=== PATIENT | female | born 1965 ===

== ENCOUNTER 2020-07-17 15:38 | Outpatient (REF) | payer OTHER, SELFPAY | END 2020-07-17 15:39 | disposition home or self-care (01) | LOC: HO.LAB 15:38 | PROVIDERS: PCP Internal Medicine; Visit Provider Internal Medicine | DX: Z20.828 Contact with and (suspected) exposure to other viral communicable diseases (principal) | CPT/HCPCS: C9803; U0003 ==

== ENCOUNTER 2020-10-03 13:30 | Outpatient (REF) | payer OTHER, SELFPAY | END 2020-10-03 13:31 | disposition home or self-care (01) | LOC: HO.LAB 13:30 | PROVIDERS: PCP Internal Medicine; Visit Provider Internal Medicine | DX: Z20.822 Contact with and (suspected) exposure to COVID-19 (principal) | CPT/HCPCS: 36415; C9803; U0003; U0005 ==

== ENCOUNTER 2020-12-25 13:37 | Outpatient (REF) | payer OTHER, SELFPAY ==
[2020-12-25 16:40] LABS: MANUAL DIFF FLAG NO
[2020-12-25 16:44] LABS: Basophils Percent Auto 0.4 % (0-2); Eosinophils Absolute Auto 0.1 X10*3/uL (0.0-0.4); Hematocrit 33.3 % (37-47); Hemoglobin 10.7 g/dl (12.0-16.0); Imm Gran Abs Auto 0.01 X10*3/uL (0.00-0.03); Imm Gran Pct Auto 0.2 % (0.0-0.4); Lymphocytes Absolute Auto 1.6 X10*3/uL (1.2-4.9); Lymphocytes Percent Auto 31.8 % (20-40); Mean Corpuscular HGB Conc 32.1 g/dl (31.0-35.0); Mean Corpuscular Hemoglobin 30.1 pg (27.0-33.0); Mean Corpuscular Volume 93.5 fL (80-98); Mean Platelet Volume 10.5 fL (9.4-12.3); Monocytes Absolute Auto 0.6 X10*3/uL (0.1-1.2); Monocytes Percent Auto 11.5 % (2-11); Neutrophils Absolute Auto 2.8 X10*3/uL (2.0-8.3); Neutrophils Percent Auto 55.1 % (45-73); Platelet Count 277 X10*3/uL (160-400); Red Blood Count 3.56 X10*6/uL (4.20-5.50); Red Cell Distribution Width 13.2 % (11.0-16.0); White Blood Count 5.1 X10*3/uL (4.8-10.8)
[2020-12-25 17:36] LABS: Alanine Aminotransferase 17 U/L (0-31); Albumin Level 4.1 g/dL (3.5-5.0); Alkaline Phosphatase 71 U/L (39-117); Anion Gap 13 (12-20); Aspartate Amino Transferase 22 U/L (5-31); Bilirubin Direct < 0.2 mg/dL (0.0-0.5); Bilirubin Total 0.4 mg/dL (0.0-1.0); Blood Urea Nitrogen 10 mg/dL (9-16); Calcium 8.7 mg/dL (8.4-10.2); Carbon Dioxide 26 mmol/L (22-29); Chloride 105 mmol/L (96-108); Estimated Glomerular Filt Rate > 60; Glucose Random 81 mg/dL (60-115); Potassium 4.1 mmol/L (3.3-5.1); Sodium 140 mmol/L (135-145); Total Protein 6.9 g/dL (6.5-8.0)
[2020-12-26 11:16] LABS: LDL Cholesterol Direct 122 mg/dL (<100)
== END 2020-12-25 13:38 | disposition home or self-care (01) ==
LOC: HO.HMGCLDS 13:37
PROVIDERS: PCP Internal Medicine; Visit Provider Internal Medicine
DX: R10.13 Epigastric pain (principal); F41.1 Generalized anxiety disorder; G47.9 Sleep disorder, unspecified; I10 Essential (primary) hypertension; M19.90 Unspecified osteoarthritis, unspecified site
CPT/HCPCS: 36415; 80053; 80076; 82248; 83721; 85025

== ENCOUNTER 2021-05-01 09:53 | Outpatient (REF) | payer OTHER, SELFPAY ==
[2021-05-01 17:15] LABS: CT PCR NOT DETECTED (Not Detect.); NG PCR NOT DETECTED (Not Detect.)
[2021-05-02 11:00] LABS: BV Int Neg Control Negative (Negative); BV Int Pos Control Positive (Positive)
[2021-05-04 03:56] LABS: HPV mRNA E6/E7 rflx Not Detected (Not Detected)
== END 2021-05-01 09:54 | disposition home or self-care (01) ==
LOC: HO.LAB 09:53
PROVIDERS: PCP Internal Medicine; Visit Provider Advanced Practice Midwife
DX: Z01.411 Encounter for gynecological examination (general) (routine) with abnormal findings (principal); Z11.51 Encounter for screening for human papillomavirus (HPV); Z11.3 Encounter for screening for infections with a predominantly sexual mode of transmission; N92.4 Excessive bleeding in the premenopausal period; E66.01 Morbid (severe) obesity due to excess calories
CPT/HCPCS: 87480; 87491; 87510; 87591; 87624; 87660; 88142

== ENCOUNTER 2021-05-02 14:54 | Outpatient (REF) | payer OTHER, SELFPAY ==
--- NOTE | ~2021-05-02 | MM_ITS ---
EXAMINATION: MM SCREENING DIGITAL BREAST TOMOSYNTHESIS, BILATERAL CLINICAL INFORMATION: Screening. Asymptomatic. The lifetime risk of breast cancer based on the Tyrer-Cuzick Model is 5.1%. COMPARISON: Mammography: December 07, 2015 and studies dating back to April 06, 2012 TECHNIQUE: Digital breast tomosynthesis is performed in both the craniocaudal and mediolateral oblique views along with computer-aided detection (CAD). Synthesized 2D images are generated from the tomosynthesis. FINDINGS: There are scattered areas of fibroglandular density (ACR BI-RADS breast composition Category b). There are no significant masses, abnormal calcifications, or other abnormalities. There are again noted to be a circumscribed densities about the central and upper outer aspects of the right breast. MM/MM tomosynthesis screening BI IMPRESSION: There are no significant changes from prior study. ASSESSMENT: BI-RADS 1: Negative RECOMMENDATION: Routine annual mammography screening. This patient's information was entered into a reminder system with a target due date for their next mammogram.
== END 2021-05-02 14:55 | disposition home or self-care (01) ==
LOC: HO.MAMMO 14:54
PROVIDERS: PCP Internal Medicine; Visit Provider Internal Medicine
DX: Z12.31 Encounter for screening mammogram for malignant neoplasm of breast (principal)
CPT/HCPCS: 77063; 77067

== ENCOUNTER 2021-05-23 10:45 | Outpatient (REF) | payer OTHER, SELFPAY ==
--- NOTE | ~2021-05-23 | US_ITS ---
EXAMINATION: US PELVIC AND TRANSVAGINAL CLINICAL INFORMATION: Fibroids. COMPARISON: CT abdomen/pelvis dated 02/04/2020 and pelvic ultrasound dated 01/28/2019 TECHNIQUE: Ultrasound of the pelvis is performed using both transabdominal and transvaginal transducers along with Doppler. Transvaginal imaging is performed due to inadequate visualization transabdominally. FINDINGS: Uterus: The uterus is anteverted and measures 11.3 x 4.5 x 6.3 cm. There are nabothian cysts. The double wall endometrial thickness is 0.9 mm. The uterus is smooth in contour and has normal myometrial echogenicity. Fundal fibroid measuring 3 x 2.2 x 3 cm (previously 3.2 x 3.1 x 3.5 cm). A right uterine body fibroid measuring 1.6 x 1.3 x 1.8 cm (previously 2.1 x 1.5 x 2.6 cm). Adnexa: Both ovaries are visualized. There is normal color-flow to the adnexa. There is no ovarian torsion. There is no pelvic ascites or fluid collection. Right ovary measures 2.5 x 1.4 x 1.8 cm. Right ovarian volume of 3.3 mL. Left ovary measures 2.6 x 1.9 x 2.1 cm. Left ovarian volume of 5.4 mL. US/US pelvic and transvaginal IMPRESSION: Redemonstration of fundal and right uterine body fibroids, slightly decreased in size when compared to the prior examination. No new myometrial lesion. Unremarkable endometrium and ovaries.
== END 2021-05-23 10:46 | disposition home or self-care (01) ==
LOC: HO.US 10:45
PROVIDERS: PCP Internal Medicine; Visit Provider Advanced Practice Midwife
DX: E66.01 Morbid (severe) obesity due to excess calories (principal)
CPT/HCPCS: 76830; 76856

== ENCOUNTER 2021-06-07 10:48 | Outpatient (REF) | payer OTHER, SELFPAY ==
[2021-06-07 16:11] LABS: MANUAL DIFF FLAG NO
[2021-06-07 16:13] LABS: Basophils Percent Auto 0.2 % (0-2); Eosinophils Percent Auto 0.5 % (0-4); Hematocrit 39.3 % (37-47); Hemoglobin 12.9 g/dl (12.0-16.0); Imm Gran Abs Auto 0.02 X10*3/uL (0.00-0.03); Imm Gran Pct Auto 0.4 % (0.0-0.4); Lymphocytes Absolute Auto 1.3 X10*3/uL (1.2-4.9); Lymphocytes Percent Auto 23.5 % (20-40); Mean Corpuscular HGB Conc 32.8 g/dl (31.0-35.0); Mean Corpuscular Hemoglobin 29.9 pg (27.0-33.0); Mean Corpuscular Volume 91.2 fL (80-98); Mean Platelet Volume 10.9 fL (9.4-12.3); Monocytes Absolute Auto 0.5 X10*3/uL (0.1-1.2); Monocytes Percent Auto 9.5 % (2-11); Neutrophils Absolute Auto 3.6 X10*3/uL (2.0-8.3); Neutrophils Percent Auto 65.9 % (45-73); Platelet Count 239 X10*3/uL (160-400); Red Blood Count 4.31 X10*6/uL (4.20-5.50); Red Cell Distribution Width 14.2 % (11.0-16.0); White Blood Count 5.5 X10*3/uL (4.8-10.8)
[2021-06-07 16:25] LABS: Alanine Aminotransferase 20 U/L (0-31); Albumin Level 4.4 g/dL (3.5-5.0); Alkaline Phosphatase 84 U/L (39-117); Anion Gap 13 (12-20); Aspartate Amino Transferase 24 U/L (5-31); Bilirubin Total 0.4 mg/dL (0.0-1.0); Blood Urea Nitrogen 10 mg/dL (9-16); Calcium 9.3 mg/dL (8.4-10.2); Carbon Dioxide 27 mmol/L (22-29); Chloride 102 mmol/L (96-108); Estimated Glomerular Filt Rate > 60; Glucose Random 112 mg/dL (60-115); Potassium 4.3 mmol/L (3.3-5.1); Sodium 138 mmol/L (135-145); Total Protein 7.6 g/dL (6.5-8.0)
[2021-06-07 16:46] LABS: Ferritin 32 ng/mL (10-250)
[2021-06-07 16:50] LABS: Vitamin B12 509 pg/mL (200-900)
== END 2021-06-07 10:49 | disposition home or self-care (01) ==
LOC: HO.HMGCLDS 10:48
PROVIDERS: PCP Internal Medicine; Visit Provider Advanced Practice Midwife
DX: R10.13 Epigastric pain (principal); F41.1 Generalized anxiety disorder; G47.9 Sleep disorder, unspecified; I10 Essential (primary) hypertension; E66.01 Morbid (severe) obesity due to excess calories; D21.9 Benign neoplasm of connective and other soft tissue, unspecified
CPT/HCPCS: 36415; 80053; 82607; 82728; 85025; 99212

== ENCOUNTER 2021-07-29 14:19 | Outpatient (REF) | payer OTHER, SELFPAY ==
[2021-07-30 09:33] LABS: BV Int Neg Control Negative (Negative); BV Int Pos Control Positive (Positive)
== END 2021-07-29 14:20 | disposition home or self-care (01) ==
LOC: HO.LNP 14:19
PROVIDERS: Visit Provider Physician Assistant
DX: N76.0 Acute vaginitis (principal)
CPT/HCPCS: 87480; 87510; 87660

== ENCOUNTER 2022-03-12 12:05 | Outpatient (REF) | payer OTHER, SELFPAY ==
[2022-03-12 15:22] LABS: Alanine Aminotransferase 13 U/L (0-31); Albumin Level 4.4 g/dL (3.5-5.0); Alkaline Phosphatase 86 U/L (39-117); Anion Gap 15 (12-20); Aspartate Amino Transferase 15 U/L (5-31); Bilirubin Total 0.4 mg/dL (0.0-1.0); Blood Urea Nitrogen 15 mg/dL (9-16); Calcium 8.8 mg/dL (8.4-10.2); Carbon Dioxide 23 mmol/L (22-29); Chloride 108 mmol/L (96-108); Estimated Glomerular Filt Rate 57; Glucose Random 93 mg/dL (60-115); Potassium 4.2 mmol/L (3.3-5.1); Sodium 142 mmol/L (135-145); Total Protein 7.5 g/dL (6.5-8.0)
[2022-03-13 15:02] LABS: LDL Cholesterol Direct 160 mg/dL (<100)
== END 2022-03-12 12:06 | disposition home or self-care (01) ==
LOC: HO.HMGCLDS 12:05
PROVIDERS: PCP Internal Medicine; Visit Provider Internal Medicine
DX: Z00.01 Encounter for general adult medical examination with abnormal findings (principal); F33.9 Major depressive disorder, recurrent, unspecified; F41.1 Generalized anxiety disorder; G47.9 Sleep disorder, unspecified; I10 Essential (primary) hypertension; E66.01 Morbid (severe) obesity due to excess calories
CPT/HCPCS: 36415; 80053; 83721

== ENCOUNTER 2022-05-05 12:57 | Outpatient (REF) | payer OTHER, SELFPAY ==
--- NOTE | ~2022-05-05 | MM_ITS ---
EXAMINATION: MM SCREENING DIGITAL BREAST TOMOSYNTHESIS, BILATERAL CLINICAL INFORMATION: Screening. Asymptomatic. The lifetime risk of breast cancer based on the Tyrer-Cuzick Model is 6%. COMPARISON: Mammography: 05/02/2021, 12/07/2015 TECHNIQUE: Digital breast tomosynthesis is performed in both the craniocaudal and mediolateral oblique views along with computer-aided detection (CAD). Synthesized 2D images are generated from the tomosynthesis. FINDINGS: There are scattered areas of fibroglandular density (ACR BI-RADS breast composition Category b). There are no significant masses, abnormal calcifications, or other abnormalities. Parenchymal pattern is similar to prior studies. There is no developing density or architectural abnormality. Incidental intramammary node again seen mid to posterior upper outer right breast. The axilla and skin contours are unremarkable. No significant changes. MM/MM tomosynthesis screening BI IMPRESSION: No mammographic evidence of malignancy. ASSESSMENT: BI-RADS 2: Benign RECOMMENDATION: Routine annual mammography screening. This patient's information was entered into a reminder system with a target due date for their next mammogram.
== END 2022-05-05 12:58 | disposition home or self-care (01) ==
LOC: HO.MAMMO 12:57
PROVIDERS: PCP Internal Medicine; Visit Provider Internal Medicine
DX: Z12.31 Encounter for screening mammogram for malignant neoplasm of breast (principal)
CPT/HCPCS: 77063; 77067

== ENCOUNTER 2022-08-13 16:00 | Observation (INO) | payer OTHER, SELFPAY ==
--- NOTE | ~2022-08-13 | CT_ITS ---
EXAMINATION: CT ANGIOGRAM HEAD CT ANGIOGRAM NECK CLINICAL INFORMATION: Reason for Exam RLE weakness COMPARISON: Earlier same day noncontrast head CT TECHNIQUE: Initial noncontrast hoop punch and coiler operator imaging of the head and neck was performed. Comparison is made with noncontrast head CT from earlier today. Test bolus sequences followed by intravenous administration 70 mL of Omnipaque 350. Helical imaging was performed in the axial plane from the aortic arch to the skull vertex. Delayed postcontrast imaging of the head was also performed. The data was processed at the registered vascular technologist (rvt)'s workstation for generation of MIP sequences. Angled MIPs and volume rendered reformatted images were also generated at an offline 3D workstation. Stenoses are assessed in accordance with NASCET criteria unless otherwise indicated. DLP: 1537 mGy-cm This CT examination was performed using dose optimization techniques as appropriate, variously including the following: *Automated exposure control. *Adjustment of mA and/or kV according to patient size (this includes techniques or standardized protocols for targeted exams where dose is matched to indication/reason for exam; i.e. extremities or head). *Use of iterative reconstruction technique. FINDINGS: CT Head: There is no evidence of acute intracranial hemorrhage or edematous territorial infarction. A few foci of hypoattenuation in the periventricular and deep white matter are consistent with mild microangiopathy. Yanes-white matter differentiation is preserved. The ventricles are normal in size and configuration. No evidence for obstructive hydrocephalus. No abnormal mass effect or midline shift. No extra-axial fluid collections. No pathologic intra-axial enhancement or regional oligemia. No acute soft tissue or osseous abnormalities. Partial left ethmoid sinus opacification. CT Neck: The thyroid gland and remaining cervical soft tissues are within normal limits. Mild degenerative changes of the cervical spine and cervical straightening. Osseous proliferative changes along the anterior arch of C1 and dens process. CT Upper Chest: The visualized lung apices and upper mediastinum are within normal limits. Neck CTA: Aortic Arch: Normal contour and caliber. Classic 3 vessel branching pattern of the aortic arch. Great Vessel Origins: No significant stenosis of the branch origins. Evaluation of the proximal great vessels is somewhat limited due to streak artifact related to patient body habitus. Right Common Carotid Artery: No focal stenosis or occlusion. Cervical Right Internal Carotid Artery: Normal opacification without focal stenosis or occlusion. Proximal retropharyngeal course. Left Common Carotid Artery: No focal stenosis or occlusion. Cervical Left Internal Carotid Artery: Normal opacification without focal stenosis or occlusion. Proximal retropharyngeal course. Cervical Right Vertebral Artery: No focal stenosis or occlusion. Cervical Left Vertebral Artery: No focal stenosis or occlusion. Brain CTA: Intracranial Internal Carotid Arteries: No focal stenosis or occlusion. Right Anterior Cerebral Artery: Normal A1 segment. Normal opacification of the distal RADHA segments. Left Anterior Cerebral Artery: Normal A1 segment. Normal opacification of the distal RADHA segments. Anterior Communicating Artery: Normal. Right Middle Cerebral Artery: Normal M1 segment of the MCA without focal stenosis or occlusion. Normal arborization of the distal segments. Left Middle Cerebral Artery: Normal M1 segment of the MCA without focal stenosis or occlusion. Normal arborization of the distal segments. Right Vertebral Artery: Normal V4 segment. Left Vertebral Artery: Normal V4 segment. Basilar Artery: Normal without focal stenosis or occlusion. Normal appearance of the proximal superior cerebellar arteries. Right Posterior Cerebral Artery: Normal P1 segment. Normal opacification of the distal [employer] segments. Left Posterior Cerebral Artery: configuration Normal opacification of the distal [employer] segments. Normal opacification of the superior sagittal, straight, transverse, and sigmoid sinuses. CT/CT angio head neck IMPRESSION: No arterial high grade stenosis or large vessel occlusion in the head or neck is identified. Evaluation of the proximal arteries in the neck is limited due to artifact related to patient body habitus.
--- NOTE | ~2022-08-13 | CT_ITS ---
EXAMINATION: CT HEAD WITHOUT CONTRAST (STROKE PROTOCOL) CLINICAL INFORMATION: Stroke protocol. Right-sided weakness COMPARISON: October 23 TECHNIQUE: Contiguous axial imaging was performed from the skull base to vertex without intravenous administration of contrast. This CT examination was performed using dose optimization techniques as appropriate, variously including the following: *Automated exposure control *Adjustment of mA and/or kV according to patient size (this includes techniques or standardized protocols for targeted exams where dose is matched to indication/reason for exam; i.e. extremities or head) *Use of iterative reconstruction technique DLP: 669 mGy-cm FINDINGS: No acute intracranial hemorrhage. No significant mass effect or midline structure shift is seen. No abnormal extra-axial fluid collection is seen. The ventricles, sulci, and cisterns appear unremarkable. Yanes-white matter interface is maintained. There is a small amount of periventricular white matter low density consistent with microangiopathy. There are a few opacified left ethmoid air cells. Mastoid sinuses well aerated. No air-fluid level is seen. No destructive bony lesion. Pterygoid plates and temporomandibular joints unremarkable. CT/CT head for stroke IMPRESSION: No acute intracranial pathology. Small amount of periventricular white matter low density consistent with microangiopathy. This critical result was discussed with Erick MERCHANT at 4:50 PM hours on August 13, 2022. It was ascertained that the content and urgency of the report was understood at the time of direct communication.
--- NOTE | ~2022-08-13 | XR_ITS ---
EXAMINATION: XR CHEST CLINICAL INFORMATION: Shortness of breath COMPARISON: 02/04/2020 TECHNIQUE: Frontal view of the chest was obtained. FINDINGS: Elevated right hemidiaphragm stable. Lungs grossly clear. Heart and pulmonary vessels normal. There is postsurgical change in the right shoulder joint. XR/XR chest 1V IMPRESSION: No active disease.
--- NOTE | 2022-08-13 16:11 | ECG_ITS ---
Test Reason : WEAKNESS Blood Pressure : / mmHG Vent. Rate : 060 BPM Atrial Rate : 060 BPM P-R Int : 142 ms QRS Dur : 084 ms QT Int : 434 ms P-R-T Axes : 024 -10 027 degrees QTc Int : 434 ms Normal sinus rhythm Moderate voltage criteria for LVH, may be normal variant ( R in aVL , Jose product ) Cannot rule out Anterior infarct , age undetermined Abnormal ECG No significant changes when compared with the previous EKG of 04 february 2020 Referred By: Erick Andres Electronically Signed By:OSMAN BUNCH
--- NOTE | 2022-08-13 16:21 | ED.GENADULT ---
HPI - General Adult General Chief complaint: Headache Stated complaint: CHEST PRESSURE Time Seen by Provider: 08/13/22 16:05 Source: patient Mode of arrival: ambulatory Limitations: no limitations History of Present Illness HPI narrative: This is a 57-year-old female history of environmental allergies, obesity, anxiety, hypertension presenting to the emergency department complaints of severe occipital headache sudden in onset at 15:00, patient also reporting weakness and tells me she is having difficulty lifting her right foot. Last known well time was at 15:00. Patient also reporting some associated shortness of breath that has been present for the past few days worsening worse with exertion better at rest. Patient takes baby aspirin daily however no other blood thinners. Patient denies chest pain, fevers, chills, nausea, vomiting, abdominal pain, headache, vision changes, dizziness. NIHSS- [address] for stroke ordered at this time. Related Data Previous Rx's Medication Instructions Recorded naphazoline 0.025 %-pheniramine 1 drp ophthalmic (eye) BID-QID PRN 09/17/21 0.3 % eye drops (Naphcon-A) Itchy eyes 30 days #15 mL meclizine 25 mg tablet 25 mg PO DAILY PRN motion sickness 12/18/21 30 days #30 tabs acetaminophen 650 mg 650 mg PO Q12H PRN pain 90 days 02/03/22 tablet,extended release (Tylenol #180 tabs Arthritis Pain) rosuvastatin 20 mg tablet 20 mg PO DAILY 90 days #90 tabs 03/14/22 albuterol sulfate 90 mcg/actuation 1 inh inhalation QID PRN shortness 05/21/22 aerosol inhaler (ProAir HFA) of breath or wheezing 30 days #18 grams aspirin 81 mg tablet,delayed 81 mg PO DAILY 90 days #90 tabs 05/21/22 release levocetirizine 5 mg tablet 5 mg PO DAILY 90 days #90 tabs 05/21/22 (Allergy Relief (levocetirizine)) omeprazole 20 mg capsule,delayed 20 mg PO DAILY 90 days #90 caps 05/21/22 release sertraline 100 mg tablet 200 mg PO DAILY #180 caps 05/23/22 zolpidem 10 mg tablet 10 mg PO BEDTIME 30 days #30 tabs 05/28/22 lisinopril 20 1 tab PO DAILY 90 days #90 tabs 06/04/22 mg-hydrochlorothiazide 25 mg tablet Allergies Allergy/AdvReac Type Severity Reaction Status Date / Time tramadol Allergy Unknown upset Verified 05/28/22 11:13 stomach Motrin Allergy Unknown upset Uncoded 03/12/22 11:48 stomach Review of Systems Review of Systems: Constitutional : No Weight loss, No Fever, No Chills, No Fatigue, No Malaise ENT/Mouth : No sore throat, No Rhinorrhea Eyes: No Eye Pain, No Swelling, No Redness Cardiovascular : No Chest Pain, + SOB, No Dyspnea on Exertion, No Orthopnea, No Edema, No Palpitations Respiratory : No Cough, No Sputum, No Wheezing Gastrointestinal : No Nausea, No Vomiting, No Diarrhea, No Constipation, No abdominal Pain, No Hematochezia, No Melena Genitourinary : No Dysuria, No Urinary Frequency, No Hematuria, Musculoskeletal : No joint pain, No Myalgias, No Joint Swelling Skin : No Skin Lesions, No rash Neuro : + Weakness, No Numbness, No Dizziness, + Headache Psych : No Anxiety/Panic, No Depression All other systems reviewed and are negative Yes all other systems are reviewed and are negative [facility] Past Medical History Attestation statement: The following information was validated with the patient. Source: old records reviewed and nursing notes reviewed Medical History COVID-19 HTN (hypertension) Surgical History H/O shoulder surgery Hx of cholecystectomy Hx of tubal ligation Family History Family History Mother Diabetes Sister Diabetes HTN (hypertension) Social History Social History Housing: House Alcohol intake: never Patient Tobacco Use Status: Never used Tobacco Smoked in Last 30 Days: No e-Cigarette/Vaping Use: Never Used Use of substances other than those prescribed or required for medical reasons: No Substance Use Type: Marijuana Advance Directives: No Advance Directives Information Provided: Yes service: No Current occupational status: disabled Cognitive needs: No Hearing needs: No Vision needs: No Physical Exam ED Vital Signs: Vital Signs - 24 hr 08/13/22 16:44 08/13/22 19:15 Temperature 98.2 F 97.9 F Pulse Rate 88 53 Respiratory Rate 18 18 Blood Pressure 160/110 H 136/60 Pulse Oximetry 99 99 Oxygen Delivery Method Room Air Room Air BMI result Body Mass Index 27.1 Vital signs stable Appearance: Alert.? Oriented X3.? No acute distress.? Head: Normocephalic, atraumatic, no step-offs or deformities Eyes: Pupils equal, round and reactive to light.? CVS: Normal heart rate and rhythm.? Pulses normal.? Respiratory: No respiratory distress.? Breath sounds normal.? Abdomen: Soft and nontender.? Skin: Skin warm and dry.? Normal skin color.? Normal skin turgor.? Extremities: No lower extremity edema.? No calf ttp. 5/5 strength to left upper extremity. 4/5 strength to right upper extremity. 5/5 strength to left lower extremity. 3/5 strength to right lower extremity, patient having difficulty lifting right lower extremity off from bed. Normal sensation to bilateral lower extremities. No overlying skin changes. Neuro: Oriented X 3.? No motor deficit.? No sensory deficit. CN 2-12 intact. Normal finger to nose. Course Reevaluation(s) Reevaluation #1: Head CT negative for stroke, I did speak to Radiology. Patient reports symptoms slightly improving. Time: 16:58 Reevaluation #2: CBC with slight leukopenia, chemistry with no acute electrolyte abnormalities requiring intervention, troponin negative, BNP within normal limits. No acute findings in coags. Patient COVID negative. Continues to report head discomfort Time: 18:00 Reevaluation #3: X-ray of the chest with no active disease. Patient is still slightly uncomfortable will obtain CTA. Time: 19:30 Additional Reevaluation(s): CT with no acute findings. Patient telling me her symptoms resolving. Patient eating with family at bedside. I did discuss hospital admission, patient tells me she would like to think about it. I gave her time to think about it. Discussed case with hospitalist will admit for possible TIA. NIHSS 0 on admission. Medications Administered Discontinued Medications Generic Name Dose Route Start Last Admin Trade Name Freq PRN Reason Stop Dose Admin Iohexol 100 ml 08/13/22 21:41 08/13/22 21:41 Iohexol 350 Mg/Ml 100 Ml Infus..Btl IV 08/13/22 21:42 70 ml ONCE ONE Administration Morphine Sulfate 4 mg 08/13/22 17:58 08/13/22 18:15 Morphine Sulfate 4 Mg/Ml Cartridge IVPUSH 08/13/22 17:59 4 mg ONCE ONE Administration Protocol Ondansetron HCl 4 mg 08/13/22 17:58 08/13/22 18:15 Ondansetron Hcl 4 Mg/2 Ml Vial IVPUSH 08/13/22 17:59 4 mg ONCE ONE Administration Medical Decision Making Medical Decision Making [facility] Narrative: 1610 This is a 57-year-old female presenting with weakness particularly to the right lower extremity, started at 15:00. And some shortness of breath. Physical exam significant for No lower extremity edema.? No calf ttp. 5/5 strength to left upper extremity. 4/5 strength to right upper extremity. 5/5 strength to left lower extremity. 3/5 strength to right lower extremity, patient having difficulty lifting right lower extremity off from bed. Normal sensation to bilateral lower extremities. No overlying skin changes. Concerns for possible TIA, stroke vs. anxiety vs migrane. Plan labs, imaging. Differential Diagnosis Differential Diagnoses: The differential diagnosis associated with the presentation includes Concerns for possible TIA, stroke vs. anxiety vs migrane. Admission/Observation Consideration of admission/observation: Escalation of care including admission/observation considered Likley admit Consult Healthcare Provider Management of the patient was discussed with: Hospitalist Lab Data [facility] Lab Attestation statement: I reviewed the patient's lab results. Result Diagrams: 08/13/22 16:29 08/13/22 16:29 Labs: Lab Results 08/13/22 08/13/22 08/13/22 Range/Units 16:29 16:29 16:29 WBC 3.7 L (4.8-10.8) X10*3/uL RBC 4.16 L (4.20-5.50) X10*6/uL Hgb 12.4 (12.0-16.0) g/dl Hct 37.1 (37.0-47.0) % MCV 89.2 (80.0-98.0) fL MCH 29.8 (27.0-33.0) pg MCHC 33.4 (31.0-35.0) g/dl RDW 12.5 (11.0-16.0) % Plt Count 201 (160-400) X10*3/uL MPV 10.0 (9.4-12.3) fL Immature Gran % (Auto) 0.3 (0.0-0.4) % Neut % (Auto) 42.6 L (45-73) % Lymph % (Auto) 45.0 H (20-40) % [place] % (Auto) 11.0 (2-11) % Eos % (Auto) 0.8 (0-4) % Baso % (Auto) 0.3 (0-2) % Lymph # (Auto) 1.7 (1.2-4.9) X10*3/uL [place] # (Auto) 0.4 (0.1-1.2) X10*3/uL Eos # (Auto) 0.0 (0.0-0.4) X10*3/uL Baso # (Auto) 0.0 (0.0-0.2) X10*3/uL Abs Immat Gran (auto) 0.01 (0.00-0.03) X10*3/uL Absolute Neuts (auto) 1.6 L (2.0-8.3) x10*3/uL Absolute Nucleated RBC 0.000 (0.0-0.012) X10*3/uL Nucleated RBC % (auto) 0.0 (0.0-0.2) /100WBC PT (10.0-13.1) SEC INR (0.9-1.1) Sodium 139 (135-145) mmol/L Potassium 3.7 (3.3-5.1) mmol/L Chloride 108 (96-108) mmol/L Carbon Dioxide 24 (22-29) mmol/L Anion Gap 11 L (12-20) BUN 14 (9-16) mg/dL Creatinine 0.78 (0.5-1.4) mg/dL Estim Creat Clear Calc 84.0 Estimated GFR > 60 Random Glucose 103 (60-115) mg/dL Calcium 9.1 (8.4-10.2) mg/dL Magnesium 2.0 (1.6-2.6) mg/dL Total Bilirubin 0.3 (0.0-1.0) mg/dL AST 19 (5-31) U/L ALT 17 (0-31) U/L Alkaline Phosphatase 78 (39-117) U/L Troponin I High Sens < 3.5 (<3.5-17.0) ng/L B-Natriuretic Peptide (<100) pg/mL Total Protein 7.0 (6.5-8.0) g/dL Albumin 4.2 (3.5-5.0) g/dL Urine Color Urine Appearance Urine pH (5.0-9.0) Ur Specific [place] (1.005-1.025) Urine Protein (Neg-Trace) mg/dL Urine Glucose (UA) (Negative) mg/dL Urine Ketones (Negative) mg/dL Urine Blood (Negative) Urine Nitrite (Negative) Ur Leukocyte Esterase (Negative) COVID-19 (KATHRYN) (Negative) COVID-19 Clin Com 08/13/22 08/13/22 08/13/22 Range/Units 16:29 16:29 16:29 WBC (4.8-10.8) X10*3/uL RBC (4.20-5.50) X10*6/uL Hgb (12.0-16.0) g/dl Hct (37.0-47.0) % MCV (80.0-98.0) fL MCH (27.0-33.0) pg MCHC (31.0-35.0) g/dl RDW (11.0-16.0) % Plt Count (160-400) X10*3/uL MPV (9.4-12.3) fL Immature Gran % (Auto) (0.0-0.4) % Neut % (Auto) (45-73) % Lymph % (Auto) (20-40) % [place] % (Auto) (2-11) % Eos % (Auto) (0-4) % Baso % (Auto) (0-2) % Lymph # (Auto) (1.2-4.9) X10*3/uL [place] # (Auto) (0.1-1.2) X10*3/uL Eos # (Auto) (0.0-0.4) X10*3/uL Baso # (Auto) (0.0-0.2) X10*3/uL Abs Immat Gran (auto) (0.00-0.03) X10*3/uL Absolute Neuts (auto) (2.0-8.3) x10*3/uL Absolute Nucleated RBC (0.0-0.012) X10*3/uL Nucleated RBC % (auto) (0.0-0.2) /100WBC PT 9.9 L (10.0-13.1) SEC INR 0.9 (0.9-1.1) Sodium (135-145) mmol/L Potassium (3.3-5.1) mmol/L Chloride (96-108) mmol/L Carbon Dioxide (22-29) mmol/L Anion Gap (12-20) BUN (9-16) mg/dL Creatinine (0.5-1.4) mg/dL Estim Creat Clear Calc Estimated GFR Random Glucose (60-115) mg/dL Calcium (8.4-10.2) mg/dL Magnesium (1.6-2.6) mg/dL Total Bilirubin (0.0-1.0) mg/dL AST (5-31) U/L ALT (0-31) U/L Alkaline Phosphatase (39-117) U/L Troponin I High Sens (<3.5-17.0) ng/L B-Natriuretic Peptide 35 (<100) pg/mL Total Protein (6.5-8.0) g/dL Albumin (3.5-5.0) g/dL Urine Color Urine Appearance Urine pH (5.0-9.0) Ur Specific [place] (1.005-1.025) Urine Protein (Neg-Trace) mg/dL Urine Glucose (UA) (Negative) mg/dL Urine Ketones (Negative) mg/dL Urine Blood (Negative) Urine Nitrite (Negative) Ur Leukocyte Esterase (Negative) COVID-19 (KATHRYN) Negative (Negative) COVID-19 Clin Com See Note 08/13/22 Range/Units 18:18 WBC (4.8-10.8) X10*3/uL RBC (4.20-5.50) X10*6/uL Hgb (12.0-16.0) g/dl Hct (37.0-47.0) % MCV (80.0-98.0) fL MCH (27.0-33.0) pg MCHC (31.0-35.0) g/dl RDW (11.0-16.0) % Plt Count (160-400) X10*3/uL MPV (9.4-12.3) fL Immature Gran % (Auto) (0.0-0.4) % Neut % (Auto) (45-73) % Lymph % (Auto) (20-40) % [place] % (Auto) (2-11) % Eos % (Auto) (0-4) % Baso % (Auto) (0-2) % Lymph # (Auto) (1.2-4.9) X10*3/uL [place] # (Auto) (0.1-1.2) X10*3/uL Eos # (Auto) (0.0-0.4) X10*3/uL Baso # (Auto) (0.0-0.2) X10*3/uL Abs Immat Gran (auto) (0.00-0.03) X10*3/uL Absolute Neuts (auto) (2.0-8.3) x10*3/uL Absolute Nucleated RBC (0.0-0.012) X10*3/uL Nucleated RBC % (auto) (0.0-0.2) /100WBC PT (10.0-13.1) SEC INR (0.9-1.1) Sodium (135-145) mmol/L Potassium (3.3-5.1) mmol/L Chloride (96-108) mmol/L Carbon Dioxide (22-29) mmol/L Anion Gap (12-20) BUN (9-16) mg/dL Creatinine (0.5-1.4) mg/dL Estim Creat Clear Calc Estimated GFR Random Glucose (60-115) mg/dL Calcium (8.4-10.2) mg/dL Magnesium (1.6-2.6) mg/dL Total Bilirubin (0.0-1.0) mg/dL AST (5-31) U/L ALT (0-31) U/L Alkaline Phosphatase (39-117) U/L Troponin I High Sens (<3.5-17.0) ng/L B-Natriuretic Peptide (<100) pg/mL Total Protein (6.5-8.0) g/dL Albumin (3.5-5.0) g/dL Urine Color Yellow Urine Appearance Clear Urine pH 5.5 (5.0-9.0) Ur Specific [place] 1.015 (1.005-1.025) Urine Protein Negative (Neg-Trace) mg/dL Urine Glucose (UA) Negative (Negative) mg/dL Urine Ketones Negative (Negative) mg/dL Urine Blood Negative (Negative) Urine Nitrite Negative (Negative) Ur Leukocyte Esterase Negative (Negative) COVID-19 (KATHRYN) (Negative) COVID-19 Clin Com Independent Interpretation I performed an independent interpretation of an: Plain X-Ray and CT Scan Radiology Impression Discussion of test interpretation with radiology: I have reviewed the radiologist's reading. External Record Review External record reviewed: Inpatient record, Office record, Outpatient record, Prior outpatient labs and Prior outpatient radiology Core Measures AMI core measures followed: Yes Measure exclusions: not indicated Critical Care Time Critical Care Time Critical Care Time: No Discharge Plan Discharge Clinical Impression: Left-sided weakness, Headache Patient Disposition: Admitted As Inpatient Prescriptions: No Action acetaminophen [Tylenol Arthritis Pain] 650 mg tablet extended release 650 mg PO Q12H PRN (Reason: pain) 90 Days Qty: 180 3RF rosuvastatin 20 mg tablet 20 mg PO DAILY 90 Days Qty: 90 0RF omeprazole 20 mg capsule,delayed release(DR/EC) 20 mg PO DAILY 90 Days Qty: 90 1RF albuterol sulfate [ProAir HFA] 90 mcg/actuation HFA aerosol inhaler 1 inh inhalation QID PRN (Reason: shortness of breath or wheezing) 30 Days Qty: 18 0RF aspirin 81 mg tablet,delayed release (DR/EC) 81 mg PO DAILY 90 Days Qty: 90 3RF levocetirizine [Allergy Relief (levocetirizin)] 5 mg tablet 5 mg PO DAILY 90 Days Qty: 90 0RF sertraline 100 mg tablet 200 mg PO DAILY Qty: 180 1RF lisinopril-hydrochlorothiazide 20-25 mg tablet 1 tab PO DAILY 90 Days Qty: 90 0RF Naphcon-A 0.025-0.3 % drops 1 drp ophthalmic (eye) BID-QID PRN (Reason: Itchy eyes) 30 Days Qty: 15 0RF zolpidem 10 mg tablet 10 mg PO BEDTIME 30 Days Qty: 30 2RF meclizine 25 mg tablet 25 mg PO DAILY PRN (Reason: motion sickness) 30 Days Qty: 30 0RF
[2022-08-13 16:38] LABS: MANUAL DIFF FLAG NO
[2022-08-13 16:41] LABS: Basophils Percent Auto 0.3 % (0-2); Eosinophils Percent Auto 0.8 % (0-4); Hematocrit 37.1 % (37.0-47.0); Hemoglobin 12.4 g/dl (12.0-16.0); Imm Gran Abs Auto 0.01 X10*3/uL (0.00-0.03); Imm Gran Pct Auto 0.3 % (0.0-0.4); Lymphocytes Absolute Auto 1.7 X10*3/uL (1.2-4.9); Mean Corpuscular HGB Conc 33.4 g/dl (31.0-35.0); Mean Corpuscular Hemoglobin 29.8 pg (27.0-33.0); Mean Corpuscular Volume 89.2 fL (80.0-98.0); Monocytes Absolute Auto 0.4 X10*3/uL (0.1-1.2); Neutrophils Absolute Auto 1.6 x10*3/uL (2.0-8.3); Neutrophils Percent Auto 42.6 % (45-73); Platelet Count 201 X10*3/uL (160-400); Red Blood Count 4.16 X10*6/uL (4.20-5.50); Red Cell Distribution Width 12.5 % (11.0-16.0); White Blood Count 3.7 X10*3/uL (4.8-10.8)
[2022-08-13 16:44] VITALS: BP 160/110; PULSE 88; RESP 18; TEMP 36.8; O2SAT 99; BMI 27.1
--- NOTE | 2022-08-13 16:49 | PC.NURSE ---
57 y/o F pw sudden onset headache, has hx of aneurysm. other neuros intact for this RN. pt is aox3, calm and coopreative, ambulatory to bathroom. pt in gown, on monitor, 18G IV in place, all labs drawn and sent, covid swab sent, xray done, CTA done.
[2022-08-13 16:53] LABS: INTERNATIONAL NORM RATIO 0.9 (0.9-1.1); Prothrombin Time 9.9 SEC (10.0-13.1)
[2022-08-13 16:58] LABS: Alanine Aminotransferase 17 U/L (0-31); Albumin Level 4.2 g/dL (3.5-5.0); Alkaline Phosphatase 78 U/L (39-117); Anion Gap 11 (12-20); Aspartate Amino Transferase 19 U/L (5-31); Bilirubin Total 0.3 mg/dL (0.0-1.0); Blood Urea Nitrogen 14 mg/dL (9-16); Calcium 9.1 mg/dL (8.4-10.2); Carbon Dioxide 24 mmol/L (22-29); Chloride 108 mmol/L (96-108); Estimated Glomerular Filt Rate > 60; Glucose Random 103 mg/dL (60-115); Potassium 3.7 mmol/L (3.3-5.1); Sodium 139 mmol/L (135-145)
[2022-08-13 17:06] LABS: Troponin-I High Sensitivity < 3.5 ng/L (<3.5-17.0)
[2022-08-13 17:09] LABS: COVID-19 Test Negative (Negative); IDNOW Serial# 16C4AD1C
[2022-08-13] MEDS: ondansetron HCL 4 MG/2 ML VIAL IVPUSH (18:15)
[2022-08-13] MEDS: Morphine Sulfate 4 MG/ML CARTRIDGE IVPUSH (18:15)
--- NOTE | 2022-08-13 18:30 | PC.NURSE ---
patient medicated for pain and nausea with good effect, awaiting imaging results
[2022-08-13 18:32] LABS: Appearance Urine Clear; Color Urine Yellow; Glucose Urine UA Negative (Negative); Leukocyte Esterase Urine Negative (Negative); Nitrite Urine Negative (Negative); PH 5.5 (5.0-9.0); Specific Gravity - Urine 1.015 (1.005-1.025); Urine Blood Negative (Negative); Urine Ketones Negative (Negative); Urine Protein Negative (Neg-Trace)
[2022-08-13 19:05] LABS: B Type Natriuretic Peptide 35 pg/mL (<100)
[2022-08-13 19:15] VITALS: BP 136/60; PULSE 53; RESP 18; TEMP 36.6; O2SAT 99
[2022-08-13] MEDS: iohexoL 350 MG/ML 100 ML INFUS..BTL IV (21:41)
[2022-08-14] VITALS (7 sets, daily range): BP systolic 127–173; BP diastolic 64–89; PULSE 57–68; RESP 16–20; TEMP 36.1–36.6; O2SAT 95–98
--- NOTE | 2022-08-14 00:52 | P.HPHOSP_ITS ---
History of Present Illness Date of Service: 08/14/22 Chief Complaint: Right foot weakness This is a 57-year-old female with pertinent history of essential hypertension, generalized anxiety disorder, mixed hyperlipidemia, gastroesophageal reflux disease who presents to the emergency department for evaluation of sudden-onset right lower limb weakness. Patient states she was doing well when she had sudden onset of headache at 15:00 with difficulty lifting her right foot. It lasted till she was brought to the ER. As per ER provider, her NIHSS was 3. No difficulty of her right arm. Patient had complete resolution of her right foot weakness while in the ER and is able to lift it fine at the time of my evalu ation. No history of migraine. No facial droop. No jerking movement of extremities, tongue bite. No history of stroke. No dysarthria. Patient is on baby aspirin. In the emergency department, CT head with microangiopathy. CTA without high- grade arterial stenosis Review of Systems Constitutional: Constitutional: Reports no additional constitutional complaints Cardiovascular: Cardiovascular: Reports no additional cardiovascular compl aints Respiratory: Respiratory: Reports no additional respiratory complaints Gastrointestinal: Gastrointestinal: Reports no additional gastrointestinal complaints Genitourinary: Genitourinary: Reports no additional female genitourinary co mplaints Neurologic: Reports focal weakness Comments: Right lower extremity weakness [facility], [facility] Medical History COVID-19 HTN (hypertension) Family History Mother Diabetes Sister Diabetes HTN (hypertension) Surgical History H/O shoulder surgery Hx of cholecystectomy Hx of tubal ligation Social History Housing: House Alcohol intake: never Patient Tobacco Use Status: Never used Tobacco Smoked in Last 30 Days: No e-Cigarette/Vaping Use: Never Used Use of substances other than those prescribed or required for medical reasons: No Substance Use Type: Marijuana Advance Directives: No Advance Directives Information Provided: Yes service: No Current occupational status: disabled Cognitive needs: No Hearing needs: No Vision needs: No Meds Allergies Allergy/AdvReac Type Severity Reaction Status Date / Time tramadol Allergy Unknown upset Verified 10/19/22 11:13 stomach Motrin Allergy Unknown upset Uncoded 03/12/22 11:48 stomach Physical Exam Vital Signs and Narrative: Vital Signs: Last Vital Signs Temp 97.9 F 08/13/22 19:15 Pulse 53 08/13/22 19:15 Resp 18 08/13/22 19:15 BP 136/60 08/13/22 19:15 Pulse Ox 99 08/13/22 19:15 O2 Del Method 08/13/22 19:15 BMI result Body Mass Index 27.1 Middle-aged female lying in bed in no distress Neck supple, no JVD Regular rate and rhythm, S1-S2 heard Regular breath sounds bilaterally, no wheezing or crackles appreciated Abdomen soft nontender, no guarding, no rigidity Patient is awake, alert and oriented to self, place, time and person ; strength 5/5 in bilateral upper and lower extremity, no tongue deviation, no uvular deviation, no facial droop, no dysarthria, no nystagmus Psych: Normal mood No pedal edema Results Labs CBC and Chem 7: 08/13/22 16:29 08/13/22 16:29 Labs: Laboratory Results - last 24 hr 08/13/22 08/13/22 08/13/22 16:29 16:29 16:29 MCV 89.2 MCH 29.8 MCHC 33.4 RDW 12.5 Plt Count 201 MPV 10.0 Immature Gran % (Auto) 0.3 Neut % (Auto) 42.6 L Lymph % (Auto) 45.0 H Armstrong % (Auto) 11.0 Eos % (Auto) 0.8 Baso % (Auto) 0.3 Lymph # (Auto) 1.7 Armstrong # (Auto) 0.4 Eos # (Auto) 0.0 Baso # (Auto) 0.0 Abs Immat Gran (auto) 0.01 Absolute Neuts (auto) 1.6 L Absolute Nucleated RBC 0.000 Nucleated RBC % (auto) 0.0 PT INR Anion Gap 11 L Estim Creat Clear Calc 84.0 Estimated GFR > 60 Random Glucose 103 Calcium 9.1 Magnesium 2.0 Total Bilirubin 0.3 AST 19 ALT 17 Alkaline Phosphatase 78 Troponin I High Sens < 3.5 B-Natriuretic Peptide Total Protein 7.0 Albumin 4.2 Urine Color Urine Appearance Urine pH Ur Specific [place] Urine Protein Urine Glucose (UA) Urine Ketones Urine Blood Urine Nitrite Ur Leukocyte Esterase COVID-19 (KATHRYN) COVID-19 Clin Com 08/13/22 08/13/22 08/13/22 16:29 16:29 16:29 MCV MCH MCHC RDW Plt Count MPV Immature Gran % (Auto) Neut % (Auto) Lymph % (Auto) Armstrong % (Auto) Eos % (Auto) Baso % (Auto) Lymph # (Auto) Armstrong # (Auto) Eos # (Auto) Baso # (Auto) Abs Immat Gran (auto) Absolute Neuts (auto) Absolute Nucleated RBC Nucleated RBC % (auto) PT 9.9 L INR 0.9 Anion Gap Estim Creat Clear Calc Estimated GFR Random Glucose Calcium Magnesium Total Bilirubin AST ALT Alkaline Phosphatase Troponin I High Sens B-Natriuretic Peptide 35 Total Protein Albumin Urine Color Urine Appearance Urine pH Ur Specific [place] Urine Protein Urine Glucose (UA) Urine Ketones Urine Blood Urine Nitrite Ur Leukocyte Esterase COVID-19 (KATHRYN) Negative COVID-19 Clin Com See Note 08/13/22 18:18 MCV MCH MCHC RDW Plt Count MPV Immature Gran % (Auto) Neut % (Auto) Lymph % (Auto) Armstrong % (Auto) Eos % (Auto) Baso % (Auto) Lymph # (Auto) Armstrong # (Auto) Eos # (Auto) Baso # (Auto) Abs Immat Gran (auto) Absolute Neuts (auto) Absolute Nucleated RBC Nucleated RBC % (auto) PT INR Anion Gap Estim Creat Clear Calc Estimated GFR Random Glucose Calcium Magnesium Total Bilirubin AST ALT Alkaline Phosphatase Troponin I High Sens B-Natriuretic Peptide Total Protein Albumin Urine Color Yellow Urine Appearance Clear Urine pH 5.5 Ur Specific [place] 1.015 Urine Protein Negative Urine Glucose (UA) Negative Urine Ketones Negative Urine Blood Negative Urine Nitrite Negative Ur Leukocyte Esterase Negative COVID-19 (KATHRYN) COVID-19 Clin Com Imaging Radiologist's Impressions: Impressions Chest X-Ray 08/13/22 16:28 IMPRESSION: No active disease. Head CT 08/13/22 16:37 IMPRESSION: No acute intracranial pathology. Small amount of periventricular white matter low density consistent with microangiopathy. This critical result was discussed with Erick MERCHANT at 4:50 PM hours on August 13, 2022. It was ascertained that the content and urgency of the report was understood at the time of direct communication. Head/Neck CTA 08/13/22 21:52 IMPRESSION: No arterial high grade stenosis or large vessel occlusion in the head or neck is identified. Evaluation of the proximal arteries in the neck is limited due to artifact related to patient body habitus. Assessment and Plan (1) Weakness of right foot: Status: Acute Plan This is a 57-year-old female with pertinent history of essential hypertension, generalized anxiety disorder, mixed hyperlipidemia, gastroesophageal reflux disease who presents to the emergency department for evaluation of sudden-onset right lower limb weakness. #. Transient right lower extremity weakness #. Occipital headache Unclear etiology. Will admit with child monitor for observation. DD: TIA versus complex migraine versus other. Consulting Neurology for further assistance. Further workup based on the Neurology. Patient is on antiplatelet therapy and statin #. Essential hypertension: Continue home medication #. Generalized anxiety disorder: On sertraline Med rec pending DVT prophylaxis: Lovenox 40 mg daily Full code Cardiac diet Time Spent With Patient Time: Total time managing care of this patient today ____ minutes. Quality Stroke Does the patient have a stroke diagnosis?: No VTE Prior VTE?: No VTE Risk Level:: Medical - moderate - high VTE Device Contraindication: Treatment Not Indicated VTE Drug Contraindication: N/A - Med Ordered
--- NOTE | 2022-08-14 02:10 | PC.NURSE ---
med rec performed by this rn, Dr Morris made aware. awaiting med orders. pt and pt partner provided with storm childers at this time. pt resting comfortably on stretcher
[2022-08-14 02:27] LABS: Cholesterol 226 mg/dL; HDL Cholesterol 58 mg/dL; LDL Cholesterol Calculated 127 mg/dl; Triglycerides 205 mg/dL
[2022-08-14] MEDS: Melatonin 3 MG TABLET 6 MG PO ×2 (02:45→22:10)
[2022-08-14] MEDS: Enoxaparin Sodium 40 MG/0.4 ML SYRINGE SUBCUT ×2 (02:45→22:10)
--- NOTE | 2022-08-14 02:51 | PC.NURSE ---
pt partner at bedside. this rn offered to get recliner for pt partner. partner declined states will be going home. pt requested prn melatonin to help get some rest. pt medicated according to mar
[2022-08-14 05:28] LABS: Estimated Average Glucose 105 mg/dL; Hemoglobin A1c % 5.3 %
--- NOTE | 2022-08-14 07:05 | PHA.MEDREC ---
Pharmacy Consult ? Medication Reconciliation Pharmacy has reviewed the medication reconciliation done by tatyana
--- NOTE | 2022-08-14 07:15 | PC.NURSE ---
Patient resting comfortably no distress noted denies headache currently neuros intac, no drift or slurring of words no facial droop or deviation of tongue. Denies chest pain or respiratory distress will CTM
[2022-08-14] MEDS: 0.9 % Sodium Chloride Flush 3 ML SYRINGE IVFLUSH ×3 (07:27→22:18)
[2022-08-14 08:31] LABS: MANUAL DIFF FLAG NO
[2022-08-14 08:36] LABS: Basophils Percent Auto 0.2 % (0-2); Eosinophils Percent Auto 0.9 % (0-4); Hematocrit 37.2 % (37.0-47.0); Hemoglobin 12.3 g/dl (12.0-16.0); Imm Gran Abs Auto 0.01 X10*3/uL (0.00-0.03); Imm Gran Pct Auto 0.2 % (0.0-0.4); Lymphocytes Percent Auto 47.1 % (20-40); Mean Corpuscular HGB Conc 33.1 g/dl (31.0-35.0); Mean Corpuscular Hemoglobin 29.8 pg (27.0-33.0); Mean Corpuscular Volume 90.1 fL (80.0-98.0); Mean Platelet Volume 9.9 fL (9.4-12.3); Monocytes Absolute Auto 0.4 X10*3/uL (0.1-1.2); Monocytes Percent Auto 10.4 % (2-11); Neutrophils Absolute Auto 1.8 x10*3/uL (2.0-8.3); Neutrophils Percent Auto 41.2 % (45-73); Platelet Count 201 X10*3/uL (160-400); Red Blood Count 4.13 X10*6/uL (4.20-5.50); Red Cell Distribution Width 12.8 % (11.0-16.0); White Blood Count 4.3 X10*3/uL (4.8-10.8)
[2022-08-14 08:50] LABS: Anion Gap 12 (12-20); Blood Urea Nitrogen 14 mg/dL (9-16); Calcium 9.2 mg/dL (8.4-10.2); Carbon Dioxide 26 mmol/L (22-29); Chloride 108 mmol/L (96-108); Estimated Glomerular Filt Rate > 60; Glucose Random 122 mg/dL (60-115); Sodium 142 mmol/L (135-145)
--- NOTE | 2022-08-14 09:16 | MHC.CM.PN ---
STROUD DELIVERED PT LIVES WITH BOYFRIEND IN AN APT HOUSE. USES CANE AT BASELINE AND HAS A NEBULIZER MACHINE AT HOME BUT UNSURE OF VENDOR. HAS 4 HOURS DAILY OF RIDES SUPERVISOR ASSIST. NO HCP, DECLINES AT THIS TIME. +COVID VAX X2. [place] [facility] [place] WITH RESUMPTION OF RIDES SUPERVISOR SERVICES. FAMILY WILL TRANSPORT. CM WILL CONTINUE TO FOLLOW.
--- NOTE | 2022-08-14 09:18 | PM.NEUROCN ---
History of Present Illness Data of Consult Service Date: 08/14/22 Primary Care Provider: Kinjal Tavares MD [facility] Reason for consult: Headache 57 years old woman who came to hospital after she developed a severe headache. She said that she was at her primary care's office when she developed a headache in the back of her head on both sides which BIPIN involved her whole head and causes photophobia. She used to have headaches with this 1 was much more severe causing nausea. She came to emergency room and was noted to have a leg weakness though she did not mention any weakness in her presentation. This morning she was feeling better. I had noticed that she had an MRI of brain done few years ago. Her blood pressure numbers were mostly within normal range but she carried diagnosis of hypertension, which she was treating with medicines. Review of Systems Review of Systems: No recent cold or flu-like illness PMFSH Past Medical History Medical History COVID-19 HTN (hypertension) Family History Family History Mother Diabetes Sister Diabetes HTN (hypertension) Surgical History Surgical History H/O shoulder surgery Hx of cholecystectomy Hx of tubal ligation Social History Social History Housing: House Alcohol intake: never Patient Tobacco Use Status: Never used Tobacco Smoked in Last 30 Days: No e-Cigarette/Vaping Use: Never Used Use of substances other than those prescribed or required for medical reasons: No Substance Use Type: Marijuana Advance Directives: No Advance Directives Information Provided: Yes service: No Current occupational status: disabled Cognitive needs: No Hearing needs: No Vision needs: No Meds Allergies Allergy/AdvReac Type Severity Reaction Status Date / Time tramadol Allergy Unknown upset Verified 05/28/22 11:13 stomach Motrin Allergy Unknown upset Uncoded 03/12/22 11:48 stomach Active Medications: Current Medications Acetaminophen (Acetaminophen 325 Mg Tablet) 650 mg PO Q6H PRN PRN Reason: Pain, Mild (Pain Scale 1-3) Enoxaparin Sodium (Enoxaparin Sodium 40 Mg/0.4 Ml Syringe) 40 mg SUBCUT BEDTIME MARIELLA Last Admin: 08/14/22 02:45 Dose: 40 mg Melatonin (Melatonin 3 Mg Tablet) 6 mg PO BEDTIME PRN PRN Reason: Insomnia Last Admin: 08/14/22 02:45 Dose: 6 mg Ondansetron HCl (Ondansetron Hcl 4 Mg/2 Ml Vial) 4 mg IVPUSH Q8H PRN PRN Reason: Nausea and Vomiting Pharmacy Consult (Consult Rx Perform Med Rec) 1 each MISCELLANE ONCE PRN PRN Reason: Consult order Sodium Chloride (0.9 % Sodium Chloride Flush 3 Ml Syringe) 3 ml IVFLUSH QSHIFT MARIELLA Last Admin: 08/14/22 07:27 Dose: 3 ml Physical Exam Vital Signs: Vital Signs: Last Vital Signs Temp 97.7 F 08/14/22 08:35 Pulse 68 08/14/22 08:35 Resp 20 08/14/22 08:35 BP 132/74 08/14/22 08:35 Pulse Ox 98 08/14/22 08:35 O2 Del Method 08/14/22 08:35 BMI result Body Mass Index 27.1 Neuro: Other: She was alert and awake with normal spontaneity of speech fluency comprehension and affect. Face was symmetrical. There was no pronator drift. There was no leg weakness. Deep tendon reflexes were trace with flexor plantars for Results Labs CBC & Chem 7: 08/14/22 08:25 08/14/22 08:25 Labs: Short CBC 08/13/22 08/14/22 Range/Units 16:29 08:25 WBC 3.7 L 4.3 L (4.8-10.8) X10*3/uL Hgb 12.4 12.3 (12.0-16.0) g/dl Hct 37.1 37.2 (37.0-47.0) % Plt Count 201 201 (160-400) X10*3/uL BMP 08/13/22 08/14/22 16:29 08:25 Sodium 139 142 Potassium 3.7 4.0 Chloride 108 108 Carbon Dioxide 24 26 BUN 14 14 Creatinine 0.78 0.78 Calcium 9.1 9.2 Liver Function 08/13/22 Range/Units 16:29 Total Bilirubin 0.3 (0.0-1.0) mg/dL AST 19 (5-31) U/L ALT 17 (0-31) U/L Alkaline Phosphatase 78 (39-117) U/L Albumin 4.2 (3.5-5.0) g/dL Urine 08/13/22 Range/Units 18:18 Urine Color Yellow Urine Appearance Clear Urine pH 5.5 (5.0-9.0) Ur Specific [place] 1.015 (1.005-1.025) Urine Protein Negative (Neg-Trace) mg/dL Urine Glucose (UA) Negative (Negative) mg/dL Noncontrast head CT revealed moderately severe hypodense signal abnormalities on both sides more so on right frontal area. CTA did not reveal any significant intracranial disease. Previous MRI of brain has revealed similar pathology but more so in posterior areas and periventricular. There was also evidence of significant atrophy for her age. Assessment and Plan (1) Weakness of right foot: Status: Acute 57 years old woman who is MRI of brain few years ago reveals significant white matter disease somewhat atypical with some atrophy for her age. She had hypertension but at this time it was not out of control. She came to hospital with a headache and was noted to have foot weakness though she mostly talked about headache. At this time her examination was nonfocal and headache was resolved. Her imaging revealed significant abnormality suggestive of underlying mostly white matter disease either ischemic or demyelinating type. Because of limited risk factors and significant disease noted on her brain imaging, I recommend repeat brain MRI with and without contrast to rule out demyelinating disease. If the pattern seen on this MRI is suggestive of demyelination, a lumbar puncture is recommended to check for oligo clonal bands. In the meantime, control of vascular risk factors and p.r.n. treatment of headache is recommended Time Spent With Patient Time: Total time managing care of this patient today ____ minutes. Procedures Date of Service Date of Service: 08/14/22
[2022-08-14] MEDS: Sertraline HCL 100 MG TABLET 200 MG PO (14:56)
[2022-08-14] MEDS: lisinopriL 20 MG TABLET PO (14:56)
[2022-08-14] MEDS: hydroCHLOROthiazide 25 MG TABLET PO (17:22)
[2022-08-14] MEDS: Acetaminophen 325 MG TABLET 650 MG PO (17:28)
--- NOTE | 2022-08-14 17:33 | PM.EVENT ---
Event Note Date of Service: 08/14/22 Event Note: Admitted for headache and right lower extremity weakness all symptoms resolved patient seen by Neurology they recommended MRI brain with and without contrast to rule out demyelinating disease Patient unable to tolerate MRI due to claustrophobia Will attempt MRI tomorrow morning after giving Ativan Patient appears anxious at present will give Ativan 0.5 mg now, all home medications has been resumed. Time Spent With Patient Time: Total time managing care of this patient today ____ minutes.
[2022-08-14] MEDS: LORazepam 0.5 MG TABLET PO (17:42)
[2022-08-14] MEDS: Zolpidem Tartrate 5 MG TABLET PO (22:10)
[2022-08-15 07:39] VITALS: BP 140/71; PULSE 66; RESP 20; TEMP 36.2; O2SAT 98
[2022-08-15] MEDS: lisinopriL 20 MG TABLET PO (08:34)
[2022-08-15] MEDS: Aspirin Enteric Coated 81 MG TABLET.DR PO (08:34)
[2022-08-15] MEDS: hydroCHLOROthiazide 25 MG TABLET PO (08:34)
[2022-08-15] MEDS: Omeprazole 20 MG CAPSULE.DR PO (08:34)
[2022-08-15] MEDS: Atorvastatin Calcium 80 MG TABLET PO (08:34)
[2022-08-15] MEDS: Sertraline HCL 100 MG TABLET 200 MG PO (08:34)
[2022-08-15] MEDS: 0.9 % Sodium Chloride Flush 3 ML SYRINGE IVFLUSH (08:35)
--- NOTE | 2022-08-15 10:16 | P.DS_ITS ---
DS: Providers Provider Date of Service: 08/15/22 Date of admission: 08/14/22 00:52 Primary care physician: Kinjal Tavares MD Consults: 08/14/22 00:52 Consult to Neurology Routine Consulting Provider: [facility] Reason for consultation: ?TIA DS: Diagnosis Discharge Diagnosis (1) Weakness of right foot: Status: Acute DS: Summary Hospital Course Hospital Course: Date of Service: 08/14/22 Chief Complaint: Right foot weakness This is a 57-year-old female with pertinent history of essential hypertension, generalized anxiety disorder, mixed hyperlipidemia, gastroesophageal reflux d isease who presents to the emergency department for evaluation of sudden-onset right lower limb weakness.? Patient states she was doing well when she had sudden onset of headache at 15:00 with difficulty lifting her right foot.? It lasted till she was brought to the ER.? As per ER provider, her NIHSS was 3.? No difficulty of her right arm.? Patient had complete resolution of her right foot weakness while in the ER and is able to lift it fine at the time of my evaluation.? No history of migraine.? No facial droop.? No jerking movement of extremities, tongue bite.? No history of stroke.? No dysarthria.? Patient is on baby aspirin. In the emergency department, CT head with microangiopathy.? CTA without high- grade arterial stenosis. Hospital course 57-year-old female with pertinent history of essential hypertension, generalized anxiety disorder, mixed hyperlipidemia, gastroesophageal reflux disease who presents to the emergency department for evaluation of sudden-onset of occipital headache that became diffused and in the emergency room was noted to have right lower limb weakness all symptoms resolved, CT head showed microangiopathy, CTA head was unremarkable patient was seen by Dr. Tavares who reviewed previous MRI that showed significant white matter disease somewhat atypical with some atrophy for her H, therefore there was a concern for demyelinating disease and MRI brain with and without contrast was recommended however patient did not tolerate MRI due to claustrophobia since patient remained is stable with no neurological deficit she is being discharged home with recommendation to follow-up with neurology for possible open MRI brain, patient has been strongly recommended to follow a low-cholesterol diet continue antihypertensives and statins. For Generalized anxiety disorder recommend to continue sertraline. Time Spent with Patient Time attestation: Total time managing care of this patient today ____ minutes. Discharge coordination time: Greater than 30 minutes Quality: Safe Use of Opioids Does Pt have an Active Cancer Diagnosis on the Problem List?: No Quality: Stroke Does the patient have a stroke diagnosis?: No Physical Exam Vital Signs: Vital Signs: Last Vital Signs Temp 97.1 F 08/15/22 07:39 Pulse 66 08/15/22 07:39 Resp 20 08/15/22 07:39 BP 140/71 H 08/15/22 07:39 Pulse Ox 98 08/15/22 07:39 O2 Del Method 08/15/22 07:39 BMI result Body Mass Index 27.1 Const: Other: General patient aw johnathan alert x3 in no acute distress? Neck supple, no JV D Regular rate and rhythm, S1-S2 hea rd Regular breath sounds bilaterally , no wheezing or c rackles appreciate d Abdomen soft non tender, no guardin g, no rigidity Pat ient is awake, alvarado rt and oriented to self, place, time and person ; stre ngth 5/5 in bilate ral upper and lowe r extremity, no to ngue deviation, no uvular deviation, no facial droop, no dysarthria, no nystagmus Psych: N ormal mood No peda l edema Discharge Plan Discharge Patient Disposition: Home, Self-Care Discharge Diagnosis: Transient neurological deficit Referrals: Kinjal Tavares MD [Primary Care Provider] - 1 Week Discharge Medications: Continued acetaminophen [Tylenol Arthritis Pain] 650 mg tablet extended release 650 mg PO Q12H PRN (Reason: pain) 90 Days Qty: 180 3RF rosuvastatin 20 mg tablet 20 mg PO DAILY 90 Days Qty: 90 0RF omeprazole 20 mg capsule,delayed release(DR/EC) 20 mg PO DAILY 90 Days Qty: 90 1RF albuterol sulfate [ProAir HFA] 90 mcg/actuation HFA aerosol inhaler 1 inh inhalation QID PRN (Reason: shortness of breath or wheezing) 30 Days Qty: 18 0RF aspirin 81 mg tablet,delayed release (DR/EC) 81 mg PO DAILY 90 Days Qty: 90 3RF sertraline 100 mg tablet 200 mg PO DAILY Qty: 180 1RF lisinopril-hydrochlorothiazide 20-25 mg tablet 1 tab PO DAILY 90 Days Qty: 90 0RF Naphcon-A 0.025-0.3 % drops 1 drp ophthalmic (eye) BID-QID PRN (Reason: Itchy eyes) 30 Days Qty: 15 0RF zolpidem 10 mg tablet 10 mg PO BEDTIME 30 Days Qty: 30 2RF meclizine 25 mg tablet 25 mg PO DAILY PRN (Reason: motion sickness) 30 Days Qty: 30 0RF Discharge Orders: Discharge Order (Routine); Ordered 08/15/22 Ordered By: Brigette Velazquez Diet: Low fat, low cholesterol Activity on Discharge: As tolerated Stand Alone Forms: Patient Portal Discharge page Care Plan Goals: Transient neurological deficit resolved, MRI brain recommended however patient unable to tolerate MRI due to claustrophobia recommend outpatient follow-up with Neurology and possible open MRI as outpatient Health Concerns: Return to check with recurrent neurological symptoms of headache weakness speech impairment, continue all home medications Plan of Treatment: Outpatient follow-up with primary care physician and Neurology Dr. Tavares call for appointment Assessment: As above
== END 2022-08-15 11:31 | disposition home or self-care (01) ==
LOC: HO.ED 08-14 00:57 → HO.EDOVER 08-14 01:21 → HO.IMC 08-14 06:23
PROVIDERS: Physician Assistant; Admitting Provider Student in an Organized Health Care Education/Training Program; Emergency Provider Internal Medicine; PCP Internal Medicine; Visit Provider Hospitalist
DX: R53.1 Weakness (principal); R51.9 Headache, unspecified; I10 Essential (primary) hypertension; F41.9 Anxiety disorder, unspecified; R06.02 Shortness of breath; F12.90 Cannabis use, unspecified, uncomplicated; Z79.02 Long term (current) use of antithrombotics/antiplatelets; Z79.899 Other long term (current) drug therapy; Z20.822 Contact with and (suspected) exposure to COVID-19
CPT/HCPCS: 36415; 70450; 70496; 70498; 71045; 80048; 80053; 80061; 81003; 83036; 83735; 83880; 84484; 85025; 85610; 87635; 93005; 96372; 96374; 96375; 99222; 99285; J1650; J2270; J2405; Q9967

== ENCOUNTER 2022-08-25 13:58 | Outpatient (REF) | payer OTHER, SELFPAY ==
[2022-08-25 18:19] LABS: CT PCR NOT DETECTED (Not Detect.); NG PCR NOT DETECTED (Not Detect.)
[2022-08-26 09:44] LABS: BV Int Neg Control Negative (Negative); BV Int Pos Control Positive (Positive)
== END 2022-08-25 13:59 | disposition home or self-care (01) ==
LOC: HO.LNP 13:58
PROVIDERS: PCP Internal Medicine; Visit Provider Advanced Practice Midwife
DX: Z01.419 Encounter for gynecological examination (general) (routine) without abnormal findings (principal); D21.9 Benign neoplasm of connective and other soft tissue, unspecified; N95.1 Menopausal and female climacteric states
CPT/HCPCS: 0353U; 87480; 87510; 87660

== ENCOUNTER 2023-02-17 11:59 | Emergency (ER) | payer OTHER, SELFPAY ==
--- NOTE | ~2023-02-17 | XR_ITS ---
EXAMINATION: XR CHEST CLINICAL INFORMATION: Cough. COMPARISON: Chest radiograph dated 08/13/2022. TECHNIQUE: Frontal view of the chest was obtained. FINDINGS: Linear densities within the lingula, new when compared to the prior examination. Findings could represent atelectasis versus early infiltrates. No pleural effusion or pneumothorax. Stable cardiomediastinal silhouette. XR/XR chest 1V IMPRESSION: Linear densities within the lingula, new when compared to the prior examination. Findings could represent atelectasis versus early infiltrates.
--- NOTE | 2023-02-17 12:00 | ED_ITS ---
HPI - General Adult General Chief complaint: Upper Respiratory Symptoms Stated complaint: CP Cough Diff Breathing Time Seen by Provider: 02/17/23 13:16 Source: patient Mode of arrival: ambulatory Limitations: no limitations History of Present Illness HPI narrative: 58-year-old female with history of obesity, asthma, hypertension, depression, anxiety, environmental allergies, vertigo who presents to the ER for evaluation of shortness of breath and productive cough for the last 12-13 days. She states she has asthma and ran out of her inhalers. She states her breathing has been not good. she denies any chest pain but does have some discomfort when she coughs. today she states the had increase in sputum production. No fevers or chills. No known sick contacts. MD complaint: Productive cough and shortness of breath Onset (ago): week(s) Location: chest Radiation: non-radiation Severity: moderate Quality: aching Pain Consistency: intermittent Relieving factors: none Exacerbating factors: none Associated symptoms: cough and shortness of breath Treatments prior to arrival: none Related Data Previous Rx's Medication Instructions Recorded meclizine 25 mg tablet 25 mg PO DAILY PRN motion sickness 12/18/21 30 days #30 tabs acetaminophen 650 mg 650 mg PO Q12H PRN pain 90 days 02/03/22 tablet,extended release (Tylenol #180 tabs Arthritis Pain) rosuvastatin 20 mg tablet 20 mg PO DAILY 90 days #90 tabs 03/14/22 aspirin 81 mg tablet,delayed 81 mg PO DAILY 90 days #90 tabs 05/21/22 release albuterol sulfate 90 mcg/actuation 1 inh inhalation QID PRN shortness 10/17/22 aerosol inhaler (ProAir HFA) of breath or wheezing 30 days #18 grams levocetirizine 5 mg tablet 5 mg PO DAILY 90 days #90 tabs 10/17/22 (Allergy Relief (levocetirizine)) lisinopril 20 1 tab PO DAILY 90 days #90 tabs 10/17/22 mg-hydrochlorothiazide 25 mg tablet omeprazole 20 mg capsule,delayed 20 mg PO DAILY 90 days #90 caps 10/17/22 release sertraline 100 mg tablet 200 mg PO DAILY #180 caps 10/17/22 zolpidem 10 mg tablet 10 mg PO BEDTIME 30 days #30 tabs 11/28/22 albuterol sulfate 90 mcg/actuation 2 puff inhalation Q4-6H PRN 02/17/23 aerosol inhaler shortness of breath or wheezing #8.5 grams amoxicillin 875 mg-potassium 1 tab PO BID #14 tabs 02/17/23 clavulanate 125 mg tablet benzonatate 100 mg capsule 100 mg PO TID PRN cough #30 caps 02/17/23 prednisone 20 mg tablet 40 mg PO DAILY #10 tabs 02/17/23 Allergies Allergy/AdvReac Type Severity Reaction Status Date / Time No Known Allergies Allergy Verified 02/17/23 12:01 Review of Systems Review of Systems: Yes all other systems are reviewed and are negative [facility] Past Medical History Medical History COVID-19 HTN (hypertension) Surgical History H/O shoulder surgery Hx of cholecystectomy Hx of tubal ligation Family History Family History Mother Diabetes Sister Diabetes HTN (hypertension) Colon cancer Social History Social History Household Members: Significant Other Housing: House Do you presently have visiting nurse or other home services: Yes ([employer]) Alcohol intake: never Patient Tobacco Use Status: Never used Tobacco e-Cigarette/Vaping Use: Never Used Second Hand Smoke Exposure: No Substance Use Type: Marijuana Advance Directives: No Advance Directives Information Provided: No service: No Current occupational status: disabled Cognitive needs: No Hearing needs: No Vision needs: No Physical Exam ED Vital Signs: Vital Signs - 24 hr 02/17/23 12:02 Temperature 98 F Pulse Rate 73 Respiratory Rate 17 Blood Pressure 188/93 H Pulse Oximetry 97 Oxygen Delivery Method Room Air BMI result Body Mass Index 43.0 Appearance: Alert. Oriented X3. No acute distress. Head: normocephalic, atraumatic. Eyes: Pupils equal, round and reactive to light. ENT: Pharynx normal. No tonsillar swelling or exudate. Neck: Normal inspection. Neck supple. CVS: Normal heart rate and rhythm. Pulses normal. Respiratory: No respiratory distress. Breath sounds normal however diminished at the bases Abdomen: Obese, Soft and nontender. +BS x4 Skin: Skin warm and dry. Normal skin color. Normal skin turgor. No rashes. Extremities: No lower extremity edema. No joint swelling. No calf swelling or tenderness Neuro/psych: Oriented X 3. grossly normal, nonfocal. Normal speech and cognition. Course Course Course Narrative: This is an RME: Additional HPI, ROS, PE not included below will be deferred to primary provider. Patient is a 58 yo F with PMH of achilles tendonitits presents with 12 days of cough, congestion, and chest pain. Patient reports chest pain only occurs when coughing. Patient reports subjective fevers, fatigue, and night sweats. patient denies headache, vision changes, numbness, tingling, nausea, vomiting. Plan: viral test, x ray Medical Decision Making Medical Decision Making [facility] Narrative: 58-year-old female with history of asthma, by mental allergies, depression, anxiety, HTN, obesity who presents to the ER for evaluation of 12-13 days of cough and shortness of breath. She ran out of her asthma inhalers. No known sick contacts. On arrival to the ER she was hypertensive 180/90, no chest pain, headache or vision changes. She was afebrile and saturating 97% on room air. She was in no respiratory distress. Her lungs were clear, although diminished at the bases. Chest x-ray was performed showing a possible lingular infiltrate. EKG did not show any ischemic changes. She was negative for COVID and flu. Given her productive cough for several days and x-ray findings, will treat for community- acquired pneumonia with Augmentin, steroids, albuterol inhaler p.r.n. antitussives. Patient agrees with plan and is stable for discharge home. She will follow-up with her primary care doctor as needed. Differential Diagnosis Differential Diagnoses: The differential diagnosis associated with the presentation includes asthma exaceration, covid, flu, rsv, other viral syndrome, bronchitis, pneumonia Lab Data [facility] Lab Attestation statement: I reviewed the patient's lab results. Negative viral studies Labs: Lab Results 02/17/23 02/17/23 Range/Units 12:07 12:07 COVID-19 (KATHRYN) Negative (Negative) COVID-19 Clin Com See Note Influenza Type A (PRIETO) Negative (Negative) Influenza Type B (PRIETO) Negative (Negative) Influenza A & B Note See Note Independent Interpretation I performed an independent interpretation of an: Plain X-Ray Interpretation: cxr w/ possible infiltrate on the left, agree w/ radiology read ekg w/ normal sinus rhythm, hr 60 bpm, normal OR interval, no change from prior 11/2022. no st segment elevations or depressions Radiology Impression Discussion of test interpretation with radiology: I have reviewed the radiologist's reading. Radiologist Impression: ?XR/XR chest 1V IMPRESSION: Linear densities within the lingula, new when compared to the prior examination. Findings could represent atelectasis versus early infiltrates. External Record Review External record reviewed: Office record, Outpatient record, Prior outpatient labs and Prior outpatient radiology Tests considered The following testing was considered but not selected: basic labs considered however not indicated today given her exam and clinical presentation Prescription Management I considered prescription management with: Antibiotic and Other ( antitussive) Chronic Conditions Patient?s care impacted by: Hypertension and Other ( asthma) Critical Care Time Critical Care Time Critical Care Time: No Discharge Plan Discharge Clinical Impression: Pneumonia Patient Disposition: Home, Self-Care Instructions: Community Acquired Pneumonia (DC) Additional Instructions: Your chest x-ray today showed a possible early pneumonia. Take the prescribed antibiotic as directed. Complete the entire course and do not miss any doses. Take the prescribed prednisone, this is a steroid to help with the inflammation in your lungs. Use the inhaler every 4 hours as needed for shortness of breath. Take [id number] cold and flu medications as needed for your other symptoms. Rest and stay hydrated. Follow-up with primary care doctor. If you develop new or worsening symptoms call 911 or come back to the ER for further evaluation. Prescriptions: New amoxicillin-pot clavulanate 875-125 mg tablet 1 tab PO BID Qty: 14 0RF prednisone 20 mg tablet 40 mg PO DAILY Qty: 10 0RF albuterol sulfate 90 mcg/actuation HFA aerosol inhaler 2 puff inhalation Q4-6H PRN (Reason: shortness of breath or wheezing) Qty: 8.5 0RF benzonatate 100 mg capsule 100 mg PO TID PRN (Reason: cough) Qty: 30 0RF No Action acetaminophen [Tylenol Arthritis Pain] 650 mg tablet extended release 650 mg PO Q12H PRN (Reason: pain) 90 Days Qty: 180 3RF rosuvastatin 20 mg tablet 20 mg PO DAILY 90 Days Qty: 90 0RF aspirin 81 mg tablet,delayed release (DR/EC) 81 mg PO DAILY 90 Days Qty: 90 3RF albuterol sulfate [ProAir HFA] 90 mcg/actuation HFA aerosol inhaler 1 inh inhalation QID PRN (Reason: shortness of breath or wheezing) 30 Days Qty: 18 0RF lisinopril-hydrochlorothiazide 20-25 mg tablet 1 tab PO DAILY 90 Days Qty: 90 0RF omeprazole 20 mg capsule,delayed release(DR/EC) 20 mg PO DAILY 90 Days Qty: 90 1RF levocetirizine [Allergy Relief (levocetirizin)] 5 mg tablet 5 mg PO DAILY 90 Days Qty: 90 3RF sertraline 100 mg tablet 200 mg PO DAILY Qty: 180 1RF zolpidem 10 mg tablet 10 mg PO BEDTIME 30 Days Qty: 30 2RF meclizine 25 mg tablet 25 mg PO DAILY PRN (Reason: motion sickness) 30 Days Qty: 30 0RF Referrals: Kinjal Tavares MD [Primary Care Provider] - Discharge Date/Time: 02/17/23 13:39
--- NOTE | 2023-02-17 12:01 | ECG_ITS ---
Test Reason : cp Blood Pressure : / mmHG Vent. Rate : 060 BPM Atrial Rate : 060 BPM P-R Int : 162 ms QRS Dur : 084 ms QT Int : 420 ms P-R-T Axes : 045 -22 029 degrees QTc Int : 420 ms Normal sinus rhythm Moderate voltage criteria for LVH, may be normal variant ( R in aVL , [place] product ) Anterolateral infarct (cited on or before 13-AUG-2022) Abnormal ECG When compared with ECG of 13-AUG-2022 16:17, No significant change was found Referred By: Erick Andres Electronically Signed By:CARMELA DIXON MD
[2023-02-17 12:02] VITALS: BP 188/93; PULSE 73; RESP 17; TEMP 36.6; O2SAT 97; BMI 43.0
[2023-02-17 12:39] LABS: COVID-19 Test Negative (Negative); IDNOW Serial# 55D5AD1C; IDNOW Serial# 9DB6401D; Influenza A Negative (Negative); Influenza B2 Negative (Negative)
== END 2023-02-17 13:39 | disposition home or self-care (01) ==
PROVIDERS: Physician Assistant; Emergency Provider Emergency Medicine Emergency Medical Services; PCP Internal Medicine
DX: J18.9 Pneumonia, unspecified organism (principal); R06.02 Shortness of breath; Z20.822 Contact with and (suspected) exposure to COVID-19; I10 Essential (primary) hypertension; Z79.899 Other long term (current) drug therapy
CPT/HCPCS: 71045; 87502; 87635; 93005; 99283

== ENCOUNTER → 2023-02-17 12:01 | Outpatient (BNV) | payer OTHER, SELFPAY | PROVIDERS: Emergency Provider Emergency Medicine Emergency Medical Services; PCP Internal Medicine; Visit Provider Internal Medicine Cardiovascular Disease | DX: R94.31 Abnormal electrocardiogram [ECG] [EKG] (principal) | CPT/HCPCS: 93010 ==

== ENCOUNTER 2023-03-18 11:08 | Outpatient (AMB) | payer OTHER, SELFPAY ==
[2023-03-18 11:14] VITALS: BP 136/74; PULSE 72; O2SAT 96; BMI 43.0
--- NOTE | 2023-03-18 11:14 | A.OFFPC_ITS ---
Vital Signs 03/18/23 11:14 Height 5 ft 2 in Weight 235 lb BMI 43.0 BP 136/74 Blood Pressure Location Rt brachial Position Sitting Pulse 72 Pulse Source Pulse Oximeter Pulse Oximetry (%) 96 Oxygen Delivery Method Room Air Intake Visit Reasons: annual PE Allergies No Known Allergies Allergy (Verified 03/18/23 11:15) Tobacco use date assessed: 03/18/23 Dental Screening Dental Screen Date: 03/18/23 Did you have a dental visit in the last 12 months?: No Did you have a dental problem in the last 6 months where you did not have access to dental care?: No Was dental information given to patient?: No HPI annual PE HPI Details Patient is a 58-year-old female came in today for physical examination Colonoscopy was in 2017, it was due in 5 years, referral placed Mammogram is due April this Pap smear was August [facility] Lab order placed to be done fasting Medication wrist reviewed and refills sent Patient need to lose weight she is morbidly obese. Follow-up 3 months for medication refill [facility] Medical History COVID-19 HTN (hypertension) Surgical History H/O shoulder surgery Hx of cholecystectomy Hx of tubal ligation Family History Mother Diabetes Sister Diabetes HTN (hypertension) Colon cancer Social History Household Members: Significant Other Housing: House Do you presently have visiting nurse or other home services: Yes ([employer]) Alcohol intake: never Patient Tobacco Use Status: Never used Tobacco e-Cigarette/Vaping Use: Never Used Second Hand Smoke Exposure: No Substance Use Type: Marijuana service: No Current occupational status: disabled Cognitive needs: No Hearing needs: No Vision needs: No Female Reproductive History Menstrual Age of Menarche: 14 Questionnaire PHQ-9 Over the last 2 weeks, how often have you been bothered by any of the following problems? 95082 - PHQ-9 Billing: Patient declined-do not bill Source: Developed by Drs. Agustin Lucas, Katie Brennan, Christopher Cee and colleagues, with an educational jean pierre from [employer]. Thrive Questionnaire Date Thrive assessed: 03/18/23 What is your living situation today?: I choose not to answer this question Within the past 12 months, did the food you bought not last and you didn't have the money to get more?: I choose not to answer this question Within the past 12 months, did you worry whether your food would run out before you got money to buy more?: I choose not to answer this question Do you have trouble paying for medicines?: I choose not to answer this question Do you have trouble getting transportation to medical appointments?: I choose not to answer this question Do you have trouble paying your heating and electricity bill?: I choose not to answer this question Do you have trouble taking care of your child, family member or friend?: I choose not to answer this question Do you have trouble with day-to-day activities such as bathing, preparing meals, shopping, managing finances, etc.?: I choose not to answer this question Are you currently unemployed and looking for a job?: I choose not to answer this question Are you interested in more education?: I choose not to answer this question AUDIT C Alcohol Use Questionnaire (AUDIT-C) 1. How often do you have a drink containing alcohol?: Never 3. How often do you have six or more drinks on one occasion?: Never Total Score: 0 Score Reviewed/Action Taken: Yes MANUELA-7 AMB Questionnaire MANUELA-7 Date MANUELA - 7 assessed: 03/18/23 Source: Developed by Drs. Agustin Lucas, Katie Brennan, Christopher Cee and colleagues, with an educational jean pierre from [employer]. MANUELA-7 Assessment Billing MANUELA-7 Assessment Tool: pt declined-do not bill Review of Systems Const Denies chills, Denies fever(s) and Denies headache(s) Eyes Denies blurry vision ENT Denies headache(s), Denies nasal discharge, Denies nasal obstruction, Denies odynophagia and Denies sinus pain Card Denies chest pain at rest and Denies chest pain with activity Resp Denies cough and Denies hemoptysis GI Denies diarrhea, Denies odynophagia, Denies vomiting and Denies hematemesis Reports as per HPI Musc Denies abnormal gait Skin/Breast Reports as per HPI Neuro Denies Neuro-related abnormal movements, Denies Abnormal speech present, Denies abnormal gait, Denies headache(s) and Denies Sensory deficit (Neuro) Psych Denies mood swings and Denies paranoia Endo Reports as per HPI Abisai/Lymph Reports as per HPI Aller/Immun Reports as per HPI Physical exam (Primary Care) Vital Signs: Last Vital Signs Pulse 72 03/18/23 11:14 BP 136/74 03/18/23 11:14 Pulse Ox 96 03/18/23 11:14 Oxygen Delivery Method Room Air 03/18/23 11:14 BMI result Body Mass Index 43.0 Tobacco/Smoking Status: Tobacco use Status Tobacco use date assessed 03/18/23 03/18/23 11:16 Patient Tobacco Use Status Never used Tobacco 03/18/23 11:16 Tobacco use type 05/30/22 13:54 e-Cigarette/Vaping Use Never Used 03/18/23 11:16 Thrive Assessment: Date of Thrive Assessment Date Thrive assessed 03/18/23 03/18/23 11:35 Const General: cooperative, comfortable and no acute distress Orientation/consciousness: patient oriented x3 HENMT Head: Yes normocephalic and Yes atraumatic Eyes General: appearance normal, both eyes and all related structures Pupils: Equal, round and reactive pupils present EOM: EOMs intact bilaterally Neck Neck: Yes supple and No lymphadenopathy Thyroid: Thyroid normal Lymphatic: no lymphadenopathy noted Resp Effort & Inspection: normal respiratory effort and able to speak in complete sentences Auscultation: clear to auscultation bilaterally Cardio Heart sounds: S1 normal heart sound present and S2 normal heart sound present GI Palpation (GI): Soft to palpation and nontender Auscultation: normal bowel sounds General: Yes no CVA tenderness Back/Spine/Pelvis Back: no CVA tenderness Skin General skin exam: elasticity normal and turgor normal Neuro General: patient oriented x3 and gait normal Cranial nerves: Yes Equal, round and reactive pupils present Speech: No Abnormal speech present Sensory Exam: No Sensory deficit (Neuro) Coordination: tandem gait normal and Romberg test negative Extrem Other: Limited range of motion both shoulders patient unable to lift arms above head, chronic General: No edema Assessment and Plan Assessment & Plan (1) Encounter for general adult medical examination with abnormal findings: Code(s): Z00.01 - Encounter for general adult medical examination with abnormal findings (2) Morbid obesity due to excess calories: Code(s): E66.01 - Morbid (severe) obesity due to excess calories (3) Major depression, recurrent: Code(s): F33.9 - Major depressive disorder, recurrent, unspecified (4) Anxiety, generalized: Code(s): F41.1 - Generalized anxiety disorder (5) Hypertension, essential: Code(s): I10 - Essential (primary) hypertension (6) Difficulty sleeping: Code(s): G47.9 - Sleep disorder, unspecified (7) Colon cancer screening: Code(s): Z12.11 - Encounter for screening for malignant neoplasm of colon Plan Patient is a 58-year-old female came in today for physical examination Colonoscopy was in 2018, it was due in 5 years, referral placed Mammogram is due April of this year Pap smear was August of this year [facility] Lab order placed to be done fasting Medication wrist reviewed and refills sent Patient need to lose weight she is morbidly obese. Follow-up 3 months for medication refill Orders: Orders Comprehensive [place]. Panel Fast Today E66.01 - Morbid (severe) obesity due to e xcess calories, F33.9 - Major depressive disorder, recurrent, unspecified, F41.1 - Generalized anxiety disorder, G47.9 - Sleep disorder, unspecified, I10 - Essential (primary) hypertension, Z00.01 - Encounter for general adult medical examination with abnormal findings Lipid Panel Today E66.01 - Morbid (severe) obesity due to excess calories, F33.9 - Major depressive disorder, recurrent, unspecified, F41.1 - Generalized anxiety disorder, G47.9 - Sleep disorder, unspecified, I10 - Essential (primary) hypertension, Z00.01 - Encounter for general adult medical examination with abnormal findings Complete Blood Count Auto Diff Today E66.01 - Morbid (severe) obesity due to excess calories, F33.9 - Major depressive disorder, recurrent, unspecified, F41.1 - Generalized anxiety disorder, G47.9 - Sleep disorder, unspecified, I10 - Essential (primary) hypertension, Z00.01 - Encounter for general adult medical examination with abnormal findings Referrals Gastroenterology Referral Z12.11 - Encounter for screening for malignant neoplasm of colon Medications: Refilled zolpidem 10 mg PO BEDTIME 30 tabs 2RF 30 days G47.9 - Sleep disorder, unspecified sertraline 200 mg (2 x 100 mg) PO DAILY 180 caps 1RF F41.1 - Generalized anxiety disorder omeprazole 20 mg PO DAILY 90 caps 1RF 90 days K21.9 - Gastro-esophageal reflux disease without esophagitis lisinopril-hydrochlorothiazide 20-25 mg 1 tab PO DAILY 90 tabs 0RF 90 days I10 - Essential (primary) hypertension Discontinued prednisone Discontinued Reason: Patient Completed Course 40 mg (2 x 20 mg) PO DAILY 10 tabs 0RF amoxicillin-pot clavulanate 875-125 mg Discontinued Reason: Patient Completed Course 1 tab PO BID 14 tabs 0RF Coding Level of Care Code Est Pt Prev Care 40-64y(54635) Diagnoses Encounter for general adult medical examination with abnormal findings Z00.01 Morbid obesity due to excess calories E66.01 Major depression, recurrent F33.9 Anxiety, generalized F41.1 Hypertension, essential I10 Difficulty sleeping G47.9 Colon cancer screening Z12.11
== END 2023-03-18 12:16 | disposition home or self-care (01) ==
PROVIDERS: PCP Internal Medicine; Visit Provider Internal Medicine
DX: Z00.01 Encounter for general adult medical examination with abnormal findings (principal); E66.01 Morbid (severe) obesity due to excess calories; I10 Essential (primary) hypertension; Z68.41 Body mass index [BMI] 40.0-44.9, adult; F33.9 Major depressive disorder, recurrent, unspecified; F41.1 Generalized anxiety disorder; G47.9 Sleep disorder, unspecified; Z12.11 Encounter for screening for malignant neoplasm of colon
CPT/HCPCS: 99396

== ENCOUNTER 2023-03-18 11:35 | Outpatient (REF) | payer OTHER, SELFPAY ==
[2023-03-18 13:48] LABS: MANUAL DIFF FLAG NO
[2023-03-18 14:01] LABS: Basophils Percent Auto 0.2 % (0-2); Eosinophils Absolute Auto 0.1 X10*3/uL (0.0-0.4); Eosinophils Percent Auto 1.4 % (0-4); Hematocrit 40.6 % (37.0-47.0); Hemoglobin 13.3 g/dl (12.0-16.0); Imm Gran Abs Auto 0.01 X10*3/uL (0.00-0.03); Imm Gran Pct Auto 0.2 % (0.0-0.4); Lymphocytes Absolute Auto 1.6 X10*3/uL (1.2-4.9); Lymphocytes Percent Auto 36.4 % (20-40); Mean Corpuscular HGB Conc 32.8 g/dl (31.0-35.0); Mean Corpuscular Hemoglobin 30.4 pg (27.0-33.0); Mean Corpuscular Volume 92.7 fL (80.0-98.0); Mean Platelet Volume 10.6 fL (9.4-12.3); Monocytes Absolute Auto 0.5 X10*3/uL (0.1-1.2); Monocytes Percent Auto 12.1 % (2-11); Neutrophils Absolute Auto 2.2 x10*3/uL (2.0-8.3); Neutrophils Percent Auto 49.7 % (45-73); Platelet Count 245 X10*3/uL (160-400); Red Blood Count 4.38 X10*6/uL (4.20-5.50); Red Cell Distribution Width 13.2 % (11.0-16.0); White Blood Count 4.4 X10*3/uL (4.8-10.8)
[2023-03-18 14:30] LABS: Alanine Aminotransferase 17 U/L (0-31); Albumin Level 4.2 g/dL (3.5-5.0); Alkaline Phosphatase 73 U/L (39-117); Anion Gap 11 (12-20); Aspartate Amino Transferase 16 U/L (5-31); Bilirubin Total 0.2 mg/dL (0.0-1.0); Blood Urea Nitrogen 16 mg/dL (9-16); Calcium 9.8 mg/dL (8.4-10.2); Carbon Dioxide 29 mmol/L (22-29); Chloride 106 mmol/L (96-108); Cholesterol 255 mg/dL; Estimated Glomerular Filt Rate > 60; Glucose Fasting 104 mg/dL (60-99); HDL Cholesterol 60 mg/dL; LDL Cholesterol Calculated 152 mg/dl; Potassium 4.5 mmol/L (3.3-5.1); Sodium 141 mmol/L (135-145); Total Protein 7.6 g/dL (6.5-8.0); Triglycerides 219 mg/dL
== END 2023-03-18 11:36 | disposition home or self-care (01) ==
LOC: HO.HMGCLDS 11:35
PROVIDERS: PCP Internal Medicine; Visit Provider Internal Medicine
DX: Z00.01 Encounter for general adult medical examination with abnormal findings (principal); E66.01 Morbid (severe) obesity due to excess calories; F33.9 Major depressive disorder, recurrent, unspecified; F41.1 Generalized anxiety disorder; I10 Essential (primary) hypertension; G47.9 Sleep disorder, unspecified
CPT/HCPCS: 36415; 80053; 80061; 85025

== ENCOUNTER 2023-05-20 12:59 | Outpatient (AMB) | payer OTHER, SELFPAY ==
[2023-05-20 13:12] VITALS: BP 180/74; PULSE 69; BMI 43.9
--- NOTE | 2023-05-20 13:12 | MHC.OFFVIS ---
Intake Vital Signs 05/20/23 13:12 Height 5 ft 2 in Weight 240 lb 4.862 oz BMI 43.9 BP 180/74 H Blood Pressure Location Lt brachial Position Sitting Pulse 69 Intake Visit Reasons: Colonoscopy Screening Intake Note: Patient presents to in office visit today as a new patient for colonoscopy screening. CC: Patient reports that she has hemorrhoids and constipation. Last colonoscopy done about 5 years ago. She reports family hx of colon cancer (paternal). Accompanied by: Self / Same As Patient Allergies No Known Allergies Allergy (Verified 05/20/23 13:15) Medication List - Last Reconciled 05/20/23 by Tiffany Rivers PA-C acetaminophen ER (Tylenol Arthritis Pain) 650 mg PO Q12H PRN 90 days albuterol sulfate 90 mcg/actuation 2 puffs inhalation Q4-6H PRN albuterol sulfate 90 mcg/actuation (ProAir HFA) 1 inh inhalation QID PRN 30 days aspirin 81 mg PO DAILY 90 days benzonatate 100 mg PO TID PRN levocetirizine (Allergy Relief (levocetirizine)) 5 mg PO DAILY 90 days lisinopril-hydrochlorothiazide 20-25 mg 1 tab PO DAILY 90 days meclizine 25 mg PO DAILY PRN 30 days omeprazole 20 mg PO DAILY 90 days rosuvastatin 20 mg PO DAILY 90 days sertraline 200 mg (2 x 100 mg) PO DAILY zolpidem 10 mg PO BEDTIME 30 days HPI HPI Comments History of Present Illness Details A 58 y/o female family history colon cancer P- uncles and father colon cancer- Sister 56 y/o being treated- doing well with chemo-she had questions Patient regard to family history, her risks were discussed Reviewed importance of all family members being screened appropriate time Bowels good Appetite good Colonoscopy 2018- Dr. 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) Alcohol intake: never Patient Tobacco Use Status: Never used Tobacco e-Cigarette/Vaping Use: Never Used Second Hand Smoke Exposure: No Substance Use Type: Marijuana service: No Current occupational status: disabled Cognitive needs: No Hearing needs: No Vision needs: No Female Reproductive History Menstrual Age of Menarche: 14 Review of Systems Const All systems reviewed & are unremarkable except as noted in HPI and below Denies chills, Denies fever(s) and Denies headache(s) ENT Denies headache(s) Card Denies chest pain, Denies rapid heart rate and Denies dyspnea Resp Denies dyspnea GI Denies abdominal pain, Denies change in stool character, Denies heartburn, Denies nausea and Denies vomiting Neuro Denies headache(s) Physical Exam Vital Signs: Last Vital Signs Pulse 69 05/20/23 13:12 BP 180/74 H 05/20/23 13:12 BMI result Body Mass Index 43.9 Const General: cooperative, healthy appearing and comfortable Orientation/consciousness: patient oriented x3 Limitations: no limitations Eyes Conjunctivae: conjunctivae normal Resp Effort & Inspection: normal respiratory effort and able to speak in complete sentences Auscultation: clear to auscultation bilaterally, no crackles, no rales and no rhonchi Cardio Rate: regular rate Rhythm: regular rhythm Heart sounds: S1 normal heart sound present and S2 normal heart sound present GI Palpation (GI): Soft to palpation and nontender Auscultation: normal bowel sounds Neuro General: patient oriented x3 Extrem General: Yes full ROM Psych Appearance: grossly normal and well kempt Mental Status: mental status grossly normal Speech and movement: Normal speech and movement present Affect: normal affect Attitude: cooperative Thought content: Normal thought content present Insight: Good insight present (Psych) Judgement: Good judgement present (Psych) Assessment & Plan Assessment & Plan (1) Family history of colon cancer: Comment: Last colonoscopy 2017 Dr. Zheng no polyps Father several paternal uncles colon cancer most recent her 56-year-old sister Code(s): Z80.0 - Family history of malignant neoplasm of digestive organs Plan: Colonoscopy, MiraLax Gatorade split prep Plan MG prep Orders: Orders Colonoscopy - GI Use Only 05/20/23 Z80.0 - Family history of malignant neoplasm of digestive organs Medications: New bisacodyl (Dulcolax (bisacodyl)) Day before procedure, prep day Take 4 tablets by mouth upon awakening followed by large glass of water 20 mg (4 x 5 mg) PO ONCE 1 day 4 tabs 0RF colonoscopy prep Z12.11 - Encounter for screening for malignant neoplasm of colon polyethylene glycol 3350 (Miralax) Take as directed by mouth the day before your procedure. 238 grams PO ONCE 1 day PRN 238 grams 0RF laxative effect Patient Instructions: Screening colonoscopy-reviewed procedure, need for escorted as well as rare risks MiraLax Gatorade split Literature given He encouraged to call with any questions or concerns Coding Level of Care Code New Pt Level 3 (24208) Diagnoses Family history of colon cancer Z80.0 Time Spent (min) 30
== END 2023-05-20 13:44 | disposition home or self-care (01) ==
PROVIDERS: PCP Internal Medicine; Visit Provider Physician Assistant
DX: Z80.0 Family history of malignant neoplasm of digestive organs (principal)
CPT/HCPCS: 99203

== ENCOUNTER → 2023-05-20 12:59 | Outpatient (BNVA) | payer OTHER, SELFPAY | PROVIDERS: PCP Internal Medicine; Visit Provider Physician Assistant ==

== ENCOUNTER 2023-05-25 11:48 | Outpatient (REF) | payer OTHER, SELFPAY ==
--- NOTE | ~2023-05-25 | MM_ITS ---
EXAMINATION: MM SCREENING DIGITAL BREAST TOMOSYNTHESIS, BILATERAL CLINICAL INFORMATION: Screening. Asymptomatic. COMPARISON: Mammography: This study is compared with prior exams dating back to 2016. TECHNIQUE: Digital breast tomosynthesis is performed in both the craniocaudal and mediolateral oblique views along with computer-aided detection (CAD). Synthesized 2D images are generated from the tomosynthesis. FINDINGS: There are scattered areas of fibroglandular density (ACR BI-RADS breast composition Category b). There are no significant masses, abnormal calcifications, or other abnormalities. MM/MM tomosynthesis screening BI IMPRESSION: No mammographic evidence of malignancy. ASSESSMENT: BI-RADS BI-RADS 1 - Negative RECOMMENDATION: Routine annual mammography screening. 1 year F/U This examination should not preclude the clinical evaluation of a suspicious palpable abnormality. This patient's information was entered into a reminder system with a target due date for their next mammogram.
== END 2023-05-25 11:49 | disposition home or self-care (01) ==
LOC: HO.MAMMO 11:48
PROVIDERS: PCP Internal Medicine; Visit Provider Internal Medicine
DX: Z12.31 Encounter for screening mammogram for malignant neoplasm of breast (principal)
CPT/HCPCS: 77063; 77067

== ENCOUNTER → 2023-05-25 12:30 | Outpatient (BNV) | payer OTHER, SELFPAY | PROVIDERS: PCP Internal Medicine; Visit Provider Radiology Diagnostic Radiology | DX: Z12.31 Encounter for screening mammogram for malignant neoplasm of breast (principal) | CPT/HCPCS: 77063; 77067 ==

== ENCOUNTER 2023-06-18 10:32 | Emergency (ER) | payer OTHER, SELFPAY ==
[2023-06-18 10:54] VITALS: BP 151/67; PULSE 69; RESP 16; TEMP 36.6; O2SAT 97; BMI 41.6
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
== END 2023-06-18 12:00 | disposition left against medical advice (07) ==
PROVIDERS: Emergency Provider Student in an Organized Health Care Education/Training Program
DX: Z48.02 Encounter for removal of sutures (principal); S31.119D Laceration without foreign body of abdominal wall, unspecified quadrant without penetration into peritoneal cavity, subsequent encounter; X99.1XXD Assault by knife, subsequent encounter; Z53.21 Procedure and treatment not carried out due to patient leaving prior to being seen by health care provider
CPT/HCPCS: 99281

== ENCOUNTER 2023-06-26 09:11 | Outpatient (AMB) | payer OTHER, SELFPAY ==
--- NOTE | 2023-06-26 09:20 | MHC.PC.OV ---
Vital Signs 06/26/23 09:21 Height 5 ft 3 in Weight 238 lb 4 oz BMI 42.2 BP 152/86 H Blood Pressure Location Lt brachial Position Sitting Pulse 65 Pulse Source Pulse Oximeter Pulse Oximetry (%) 97 Oxygen Delivery Method Room Air Intake Visit Reasons: 3 Month follow up Allergies No Known Allergies Allergy (Verified 06/26/23 09:21) Medication List - Last Reconciled 06/26/23 by Kinjal Tavares MD acetaminophen ER (Tylenol Arthritis Pain) 650 mg PO Q12H PRN 90 days albuterol sulfate 90 mcg/actuation 2 puffs inhalation Q4-6H PRN albuterol sulfate 90 mcg/actuation (ProAir HFA) 1 inh inhalation QID PRN 30 days aspirin 81 mg PO DAILY 90 days benzonatate 100 mg PO TID PRN bisacodyl (Dulcolax (bisacodyl)) 20 mg (4 x 5 mg) PO ONCE 1 day levocetirizine (Allergy Relief (levocetirizine)) 5 mg PO DAILY 90 days lisinopril-hydrochlorothiazide 20-25 mg 1 tab PO DAILY 90 days meclizine 25 mg PO DAILY PRN 30 days omeprazole 20 mg PO DAILY 90 days polyethylene glycol 3350 (Miralax) 238 grams PO ONCE PRN 1 day rosuvastatin 20 mg PO DAILY 90 days sertraline 200 mg (2 x 100 mg) PO DAILY zolpidem 10 mg PO BEDTIME 30 days Tobacco use date assessed: 06/26/23 Dental Screening Dental Screen Date: 06/26/23 Did you have a dental visit in the last 12 months?: Yes Did you have a dental problem in the last 6 months where you did not have access to dental care?: No Was dental information given to patient?: Patient has dentist HPI 3 Month follow up HPI Details Patient is 58-year-old female came in today for regular 3 month follow-up visit Labs were done in March Lipid disorder: Patient is supposed to be on rosuvastatin rosuvastatin but she has stopped taking it, LDL has gone up to 157 We talked about it she said that she felt she does not needed. I have sent a refill for the patient and instructed to start taking that Hypertension: Patient is taking lisinopril hydrochlorothiazide 20-25 mg, tolerating medication, blood pressure is high today, patient says that she is monitoring it at home and it runs around 120 systolic at home GERD is stable with omeprazole 20 mg and diet-controlled. Anxiety and depression: stable patient is taking sertraline 200 mg She takes zolpidem 10 mg at night due to difficulty sleeping., refill sent for next 3 month Allergies stable Patient has chronic bilateral shoulder pain And osteoarthritis multiple joints. Stable at this time She is morbidly obese with a BMI of 42.2, patient is thinking about going through our gastric balloon procedure through [facility]. 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 05039 - PHQ-9 Billing: Patient declined-do not bill Source: Developed by Drs. Agustin Lucas, Katie Brennan, Christopher Cee and colleagues, with an educational jean pierre from [employer]. Thrive Questionnaire Date Thrive assessed: 03/18/23 MANUELA-7 AMB Questionnaire MANUELA-7 Date MANUELA - 7 assessed: 06/26/23 Source: Developed by Drs. Agustin Lucas, Katie Brennan, Christopher Cee and colleagues, with an educational jean pierre from [employer]. MANUELA-7 Assessment Billing MANUELA-7 Assessment Tool: pt declined-do not bill Review of Systems Const Denies chills and Denies fever(s) ENT Denies epistaxis and Denies nasal discharge Card Denies chest pain Resp Denies chest congestion, Denies cough and Denies hemoptysis GI Denies diarrhea and Denies nausea Skin/Breast Denies rash Neuro Reports no additional complaints Psych Reports no additional complaints Endo Reports no additional complaints Physical exam (Primary Care) Vital Signs: Last Vital Signs Pulse 65 06/26/23 09:21 BP 152/86 H 06/26/23 09:21 Pulse Ox 97 06/26/23 09:21 Oxygen Delivery Method Room Air 06/26/23 09:21 BMI result Body Mass Index 42.2 Tobacco/Smoking Status: Tobacco use Status Tobacco use date assessed 06/26/23 06/26/23 09:22 Patient Tobacco Use Status Never used Tobacco 06/26/23 09:22 Tobacco use type 05/30/22 13:54 e-Cigarette/Vaping Use Never Used 06/26/23 09:22 Thrive Assessment: Date of Thrive Assessment Date Thrive assessed 03/18/23 06/26/23 09:22 Const General: cooperative, comfortable and no acute distress Orientation/consciousness: patient oriented x3 HENMT Head: Yes normocephalic Eyes General: appearance normal, both eyes and all related structures Neck Neck: Yes supple Resp Effort & Inspection: normal respiratory effort, no cough and no stridor Cardio Rhythm: regular rhythm Heart sounds: S1 normal heart sound present and S2 normal heart sound present Skin General skin exam: turgor normal Neuro General: patient oriented x3, tone normal and moves all extremities Extrem Right lower extremity: no edema Left lower extremity: no edema Assessment and Plan Assessment & Plan (1) Hypertension, essential: Code(s): I10 - Essential (primary) hypertension (2) Morbid obesity due to excess calories: Code(s): E66.01 - Morbid (severe) obesity due to excess calories (3) Major depression, recurrent: Code(s): F33.9 - Major depressive disorder, recurrent, unspecified Qualifiers: Active/Remission status: in partial remission Qualified Code(s): F33.41 - Major depressive disorder, recurrent, in partial remission (4) Anxiety, generalized: Code(s): F41.1 - Generalized anxiety disorder (5) Difficulty sleeping: Code(s): G47.9 - Sleep disorder, unspecified (6) Dyspepsia: Code(s): R10.13 - Epigastric pain (7) Arthrosis: Code(s): M19.90 - Unspecified osteoarthritis, unspecified site (8) Environmental allergies: Code(s): Z91.09 - Other allergy status, other than to drugs and biological substances (9) Lipid disorder: Code(s): E78.9 - Disorder of lipoprotein metabolism, unspecified Plan Patient is 58-year-old female came in today for regular 3 month follow-up visit Labs were done in March Lipid disorder: Patient is supposed to be on rosuvastatin rosuvastatin but she has stopped taking it, LDL has gone up to 157 We talked about it she said that she felt she does not needed. I have sent a refill for the patient and instructed to start taking that Hypertension: Patient is taking lisinopril hydrochlorothiazide 20-25 mg, tolerating medication, blood pressure is high today, patient says that she is monitoring it at home and it runs around 120 systolic at home GERD is stable with omeprazole 20 mg and diet-controlled. Anxiety and depression: stable patient is taking sertraline 200 mg She takes zolpidem 10 mg at night due to difficulty sleeping., refill sent for next 3 month Allergies stable Patient has chronic bilateral shoulder pain And osteoarthritis multiple joints. Stable at this time She is morbidly obese with a BMI of 42.2, patient is thinking about going through our gastric balloon procedure through [facility]. Follow-up 3 months Medications: Refilled meclizine 25 mg PO DAILY PRN 30 tabs 0RF motion sickness 30 days zolpidem 10 mg PO BEDTIME 30 tabs 2RF 30 days G47.9 - Sleep disorder, unspecified rosuvastatin 20 mg PO DAILY 90 tabs 0RF 90 days Coding Level of Care Code Est Pt Level 4 (94338) Diagnoses Hypertension, essential I10 Morbid obesity due to excess calories E66.01 Recurrent major depressive disorder, in partial remission F33.41 Active/Remission status: in partial remission Anxiety, generalized F41.1 Difficulty sleeping G47.9 Dyspepsia R10.13 Arthrosis M19.90 Environmental allergies Z91.09 Lipid disorder E78.9
[2023-06-26 09:21] VITALS: BP 152/86; PULSE 65; O2SAT 97; BMI 42.2
== END 2023-06-26 10:04 | disposition home or self-care (01) ==
PROVIDERS: PCP Internal Medicine; Visit Provider Internal Medicine
DX: I10 Essential (primary) hypertension (principal); E66.01 Morbid (severe) obesity due to excess calories; F33.41 Major depressive disorder, recurrent, in partial remission; Z68.41 Body mass index [BMI] 40.0-44.9, adult; F41.1 Generalized anxiety disorder; G47.9 Sleep disorder, unspecified; R10.13 Epigastric pain; M19.90 Unspecified osteoarthritis, unspecified site; Z91.09 Other allergy status, other than to drugs and biological substances; E78.9 Disorder of lipoprotein metabolism, unspecified
CPT/HCPCS: 99214

== ENCOUNTER 2023-08-18 09:19 | Outpatient (AMB) | payer OTHER, SELFPAY ==
--- NOTE | 2023-08-18 10:50 | MHC.OFFWIV ---
Intake Vital Signs 08/18/23 10:52 Height 5 ft 3 in Weight 242 lb 6 oz BMI 42.9 BP 142/72 H Blood Pressure Location Lt brachial Position Sitting Pulse 75 Pulse Source Pulse Oximeter Temp 98.8 F Temp Source Oral Pulse Oximetry (%) 98 Oxygen Delivery Method Room Air Intake Visit Reasons: EP Cough, Congestion [phone] Intake Note: Patient is here with cough, congestion, feeling noise on right side of lung, could not breathe last night. She is having asthma symptoms, also. Patient Tobacco Use Status: Never used Tobacco Allergies No Known Allergies Allergy (Verified 08/18/23 10:51) Do you need a note to return to daycare/school/sports/work: No HPI EP Cough, Congestion [phone] HPI Details This is a 58-year-old female patient with a 4 day history of worsening dry cough, particularly at night. She feels her chest is very tight with congestion, however she cannot bring it up. Has been using albuterol inhaler at home without relief. COVID test at home was negative. Denies known exposure to sick contacts. Temperature yesterday 100.1, however nothing higher than this. Denies any GI symptoms. States that she had similar illness back over the summer that progressed to pneumonia. [facility] Medical History HTN (hypertension) COVID-19 Surgical History H/O colonoscopy Hx of tubal ligation H/O shoulder surgery Hx of cholecystectomy Family History Mother Diabetes Sister Diabetes HTN (hypertension) Colon cancer Paternal Uncle Colon cancer Social History Household Members: Significant Other Housing: House Do you presently have visiting nurse or other home services: Yes ([employer]) Alcohol intake: never Patient Tobacco Use Status: Never used Tobacco e-Cigarette/Vaping Use: Never Used Second Hand Smoke Exposure: No Substance Use Type: Marijuana service: No Current occupational status: disabled Cognitive needs: No Hearing needs: No Vision needs: No Female Reproductive History Menstrual Age of Menarche: 14 Review of Systems Const All systems reviewed & are unremarkable except as noted in HPI and below Physical Exam Vital Signs: Last Vital Signs Temp 98.8 F 08/18/23 10:52 Pulse 75 08/18/23 10:52 BP 142/72 H 08/18/23 10:52 Pulse Ox 98 08/18/23 10:52 Oxygen Delivery Method Room Air 08/18/23 10:52 BMI result Body Mass Index 42.9 Const General: cooperative HEENT Head: Yes normal to inspection Ears: hearing grossly normal bilaterally General nose exam: Normal external nose present and Normal nasal mucous membranes and turbinates present Throat: Yes posterior oropharynx normal Resp Effort & Inspection: normal respiratory effort and Actively coughing Quality: dry Auscultation: rhonchi right upper and wheezes expiratory wheezes and upper bilaterally Cardio Jugular venous distension: no JVD Palpation: normal PMI Rate: regular rate Rhythm: regular rhythm Skin General skin exam: no rashes or lesions noted Extrem General: Yes capillary refill normal and Yes no clubbing, cyanosis or edema Psych Appearance: grossly normal Mental Status: mental status grossly normal Speech and movement: Normal speech and movement present Assessment & Plan Assessment & Plan (1) Upper respiratory infection: Code(s): J06.9 - Acute upper respiratory infection, unspecified Qualifiers: URI type: unspecified URI Qualified Code(s): J06.9 - Acute upper respiratory infection, unspecified Plan: Patient declines any viral testing or CXR today. She does have some rhonchi in her upper lung villalba, particularly on the right side. She has some scattered wheezes upper bilaterally. I am going to start her on an antibiotic, a short course of prednisone, and benzonatate for cough. She states that she was on these medications back over the summer when she had pneumonia, and she responded very well to these. We reviewed indications, use, possible side effects of all medications. I encouraged her to return to the clinic or go to the emergency department if she develops any shortness of breath or worsening of symptoms. She verbalizes understanding and agrees to plan. Medications: New benzonatate 100 mg PO BID 7 days PRN 14 caps 0RF cough R05.9 - Cough, unspecified prednisone 20 mg PO BID 5 days 10 tabs 0RF J06.9 - Acute upper respiratory infection, unspecified amoxicillin-pot clavulanate 875-125 mg 1 tab PO BID 7 days 14 tabs 0RF J06.9 - Acute upper respiratory infection, unspecified Coding Level of Care Code Est Pt Level 3 (44940) Diagnoses Upper respiratory tract infection, unspecified type J06.9 URI type: unspecified URI
[2023-08-18 10:52] VITALS: BP 142/72; PULSE 75; TEMP 37.1; O2SAT 98; BMI 42.9
== END 2023-08-18 11:36 | disposition home or self-care (01) ==
PROVIDERS: Visit Provider Nurse Practitioner Family
DX: J06.9 Acute upper respiratory infection, unspecified (principal)
CPT/HCPCS: 99213

== ENCOUNTER 2023-09-18 08:26 | Outpatient (AMB) | payer OTHER, SELFPAY ==
--- NOTE | 2023-09-18 09:49 | A.OFFPC_ITS ---
Vital Signs 09/18/23 09:51 Height 5 ft 3 in Intake Visit Reasons: 6 Month follow up~[phone] Allergies No Known Allergies Allergy (Verified 09/18/23 09:49) Medication List - Last Reconciled 09/18/23 by Kinjal Tavares MD acetaminophen ER (Tylenol Arthritis Pain) 650 mg PO Q12H PRN 90 days albuterol sulfate 90 mcg/actuation 2 puffs inhalation Q4-6H PRN albuterol sulfate 90 mcg/actuation (ProAir HFA) 1 inh inhalation QID PRN 30 days aspirin 81 mg PO DAILY 90 days benzonatate 100 mg PO BID PRN 7 days bisacodyl (Dulcolax (bisacodyl)) 20 mg (4 x 5 mg) PO ONCE 1 day levocetirizine (Allergy Relief (levocetirizine)) 5 mg PO DAILY 90 days lisinopril-hydrochlorothiazide 20-25 mg 1 tab PO DAILY 90 days meclizine 25 mg PO DAILY PRN 30 days omeprazole 20 mg PO DAILY 90 days polyethylene glycol 3350 (Miralax) 238 grams PO ONCE PRN 1 day rosuvastatin 20 mg PO DAILY 90 days sertraline 200 mg (2 x 100 mg) PO DAILY zolpidem 10 mg PO BEDTIME 30 days Tobacco use date assessed: 09/18/23 Dental Screening Dental Screen Date: 09/18/23 Did you have a dental visit in the last 12 months?: No Did you have a dental problem in the last 6 months where you did not have access to dental care?: No Was dental information given to patient?: No HPI 6 Month follow up~[phone] HPI Details Patient is 58-year-old female telemedicine video follow-up Patient has vertigo she is at risk for fall She is requesting a shower chair with a back, we will send the script to [facility] store Lipid disorder: Taking rosuvastatin tolerating medication due for labs Hypertension: Patient is taking lisinopril hydrochlorothiazide 20-25 mg, tolerating medication GERD is stable with omeprazole 20 mg and diet-controlled. Anxiety and depression: stable patient is taking sertraline 200 mg She takes zolpidem 10 mg at night due to difficulty sleeping., refill sent for next 3 month Allergies stable Patient has chronic bilateral shoulder pain And osteoarthritis multiple joints. 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 How often do you have a drink containing alcohol?: Never 3. How often do you have six or more drinks on one occasion?: Never Total Score: 0 Score Reviewed/Action Taken: Yes MANUELA-7 AMB Questionnaire MANUELA-7 Date MANUELA - 7 assessed: 06/26/23 Source: Developed by Drs. Agustin Lucas, Katie Brennan, Christopher Cee and colleagues, with an educational jean pierre from [employer]. Review of Systems Const Denies chills and Denies fever(s) ENT Denies epistaxis and Denies nasal discharge Card Denies chest pain Resp Denies chest congestion, Denies cough and Denies hemoptysis GI Denies diarrhea and Denies nausea Skin/Breast Denies rash Neuro Reports no additional complaints Psych Reports no additional complaints Endo Reports no additional complaints Physical exam (Primary Care) Tobacco/Smoking Status: Tobacco use Status Tobacco use date assessed 09/18/23 09/18/23 09:52 Patient Tobacco Use Status Never used Tobacco 09/18/23 09:52 Tobacco use type 05/30/22 13:54 e-Cigarette/Vaping Use Never Used 09/18/23 09:52 Thrive Assessment: Date of Thrive Assessment Date Thrive assessed 03/18/23 09/18/23 09:52 Telehealth Telehealth Location of provider rendering services: practice address Location of patient: address on file Patient Identification confirmed using: Name, : Yes Telehealth method: video Patient verbally consented to treatment: Yes Patient verbally consented to billing insurance company: Yes Patient informed of any privacy concerns related to visit: Yes Minutes spent on Phone/Video with Pt.: 15 Assessment and Plan Assessment & Plan (1) Lipid disorder: Code(s): E78.9 - Disorder of lipoprotein metabolism, unspecified (2) Chronic vertigo: Code(s): R42 - Dizziness and giddiness (3) Environmental allergies: Code(s): Z91.09 - Other allergy status, other than to drugs and biological substances (4) Major depression, recurrent: Code(s): F33.9 - Major depressive disorder, recurrent, unspecified Qualifiers: Active/Remission status: in partial remission Qualified Code(s): F33.41 - Major depressive disorder, recurrent, in partial remission (5) Morbid obesity due to excess calories: Code(s): E66.01 - Morbid (severe) obesity due to excess calories (6) Difficulty sleeping: Code(s): G47.9 - Sleep disorder, unspecified (7) Anxiety, generalized: Code(s): F41.1 - Generalized anxiety disorder (8) Hypertension, essential: Code(s): I10 - Essential (primary) hypertension (9) Dyspepsia: Code(s): R10.13 - Epigastric pain (10) Arthrosis: Code(s): M19.90 - Unspecified osteoarthritis, unspecified site Plan Patient is 58-year-old female telemedicine video follow-up Patient has vertigo she is at risk for fall She is requesting a shower chair with a back, we will send the script to medical supply store Lipid disorder: Taking rosuvastatin tolerating medication due for labs Hypertension: Patient is taking lisinopril hydrochlorothiazide 20-25 mg, tolerating medication GERD is stable with omeprazole 20 mg and diet-controlled. Anxiety and depression: stable patient is taking sertraline 200 mg She takes zolpidem 10 mg at night due to difficulty sleeping., refill sent for next 3 month Allergies stable Patient has chronic bilateral shoulder pain And osteoarthritis multiple joints. Stable at this time She is morbidly obese having difficulty losing weight Follow-up 3 months Orders: Orders Comprehensive [place]. Panel Fast Today E66.01 - Morbid (severe) obesity due to excess calories, E78.9 - Disorder of lipoprotein metabolism, unspecified, F33.9 - Major depressive disorder, recurrent, unspecified, F41.1 - Generalized anxiety disorder, G47.9 - Sleep disorder, unspecified, I10 - Essential (primary) hypertension, R10.13 - Epigastric pain, R42 - Dizziness and giddiness, Z91.09 - Other allergy status, other than to drugs and biological substances Lipid Panel Today E66.01 - Morbid (severe) obesity due to excess calories, E78.9 - Disorder of lipoprotein metabolism, unspecified, F33.9 - Major depressive disorder, recurrent, unspecified, F41.1 - Generalized anxiety disorder, G47.9 - Sleep disorder, unspecified, I10 - Essential (primary) hypertension, R10.13 - Epigastric pain, R42 - Dizziness and giddiness, Z91.09 - Other allergy status, other than to drugs and biological substances Complete Blood Count Auto Diff Today E66.01 - Morbid (severe) obesity due to excess calories, E78.9 - Disorder of lipoprotein metabolism, unspecified, F33.9 - Major depressive disorder, recurrent, unspecified, F41.1 - Generalized anxiety disorder, G47.9 - Sleep disorder, unspecified, I10 - Essential (primary) hypertension, R10.13 - Epigastric pain, R42 - Dizziness and giddiness, Z91.09 - Other allergy status, other than to drugs and biological substances Medications: Refilled albuterol sulfate 90 mcg/actuation 2 puffs inhalation Q4-6H PRN 8.5 grams 0RF shortness of breath or wheezing zolpidem 10 mg PO BEDTIME 30 days 30 tabs 2RF G47.9 - Sleep disorder, unspecified Coding Level of Care Code Tele Est Pt Level 4 (22096) Diagnoses Lipid disorder E78.9 Chronic vertigo R42 Environmental allergies Z91.09 Recurrent major depressive disorder, in partial remission F33.41 Active/Remission status: in partial remission Morbid obesity due to excess calories E66.01 Difficulty sleeping G47.9 Anxiety, generalized F41.1 Hypertension, essential I10 Dyspepsia R10.13 Arthrosis M19.90 Comment 5 pre visit, 15 with patient, 5 charting, 5 coordination of care
== END 2023-09-18 12:29 | disposition home or self-care (01) ==
LOC: HO.HMGC 08:26
PROVIDERS: Visit Provider Internal Medicine
DX: E78.9 Disorder of lipoprotein metabolism, unspecified (principal); F33.41 Major depressive disorder, recurrent, in partial remission; E66.01 Morbid (severe) obesity due to excess calories; R42 Dizziness and giddiness; Z91.09 Other allergy status, other than to drugs and biological substances; G47.9 Sleep disorder, unspecified; F41.1 Generalized anxiety disorder; I10 Essential (primary) hypertension; R10.13 Epigastric pain; M19.90 Unspecified osteoarthritis, unspecified site
CPT/HCPCS: 99214

== ENCOUNTER 2023-10-01 10:24 | Outpatient (REF) | payer OTHER, SELFPAY ==
[2023-10-01 13:17] LABS: MANUAL DIFF FLAG NO
[2023-10-01 13:23] LABS: Basophils Percent Auto 0.2 % (0-2); Hematocrit 40.2 % (37.0-47.0); Hemoglobin 13.2 g/dl (12.0-16.0); Imm Gran Abs Auto 0.05 X10*3/uL (0.00-0.03); Imm Gran Pct Auto 0.5 % (0.0-0.4); Lymphocytes Absolute Auto 0.7 X10*3/uL (1.2-4.9); Mean Corpuscular HGB Conc 32.8 g/dl (31.0-35.0); Mean Corpuscular Hemoglobin 29.2 pg (27.0-33.0); Mean Corpuscular Volume 88.9 fL (80.0-98.0); Mean Platelet Volume 10.9 fL (9.4-12.3); Monocytes Absolute Auto 0.5 X10*3/uL (0.1-1.2); Monocytes Percent Auto 4.9 % (2-11); Neutrophils Absolute Auto 8.5 x10*3/uL (2.0-8.3); Neutrophils Percent Auto 87.4 % (45-73); Platelet Count 262 X10*3/uL (160-400); Red Blood Count 4.52 X10*6/uL (4.20-5.50); Red Cell Distribution Width 13.1 % (11.0-16.0); White Blood Count 9.7 X10*3/uL (4.8-10.8)
[2023-10-01 13:40] LABS: Alanine Aminotransferase 28 U/L (0-31); Albumin Level 4.5 g/dL (3.5-5.0); Alkaline Phosphatase 91 U/L (39-117); Anion Gap 13 (12-20); Aspartate Amino Transferase 21 U/L (5-31); Bilirubin Total 0.2 mg/dL (0.0-1.0); Blood Urea Nitrogen 11 mg/dL (9-16); Calcium 9.8 mg/dL (8.4-10.2); Carbon Dioxide 26 mmol/L (22-29); Chloride 106 mmol/L (96-108); Cholesterol 242 mg/dL (<200); Estimated Glomerular Filt Rate > 60; Glucose Fasting 130 mg/dL (60-99); HDL Cholesterol 75 mg/dL (>40); LDL Cholesterol Calculated 152 mg/dL (<100); Potassium 4.3 mmol/L (3.3-5.1); Sodium 141 mmol/L (135-145); Total Protein 8.1 g/dL (6.5-8.0); Triglycerides 79 mg/dL (<150)
== END 2023-10-01 10:25 | disposition home or self-care (01) ==
LOC: HO.HMGCLDS 10:24
PROVIDERS: PCP Internal Medicine; Visit Provider Internal Medicine
DX: R10.13 Epigastric pain (principal); I10 Essential (primary) hypertension; F41.1 Generalized anxiety disorder; G47.9 Sleep disorder, unspecified; E66.01 Morbid (severe) obesity due to excess calories; F33.9 Major depressive disorder, recurrent, unspecified; R42 Dizziness and giddiness; E78.9 Disorder of lipoprotein metabolism, unspecified; Z91.09 Other allergy status, other than to drugs and biological substances
CPT/HCPCS: 36415; 80053; 80061; 85025

== ENCOUNTER 2023-10-15 07:28 | Outpatient (REF) | payer OTHER, SELFPAY | END 2023-10-15 07:29 | disposition home or self-care (01) | LOC: HO.MAMMO 07:28 | PROVIDERS: Visit Provider Internal Medicine | DX: Z13.89 Encounter for screening for other disorder (principal) ==

== ENCOUNTER 2023-10-15 08:11 | Day surgery (SDC) | payer OTHER, SELFPAY ==
[2023-10-13 12:11] VITALS: BMI 43.9
--- NOTE | 2023-10-14 08:45 | HO.ANESPROP2 ---
Documented by User: Irasema Perkins NP 10/14/23 08:45 HPI - Anesthesia Eval Consult details Narrative: 58yo F for Colonoscopy PMFSH Active Problems Active Problems: All Active Problems (Updated 10/13/23 @ 12:10 by Daina Borges RN) Lipid disorder (Acute) Family history of colon cancer (Acute) Colon cancer screening (Acute) Achilles tendinitis, right leg (Acute) Hospital discharge follow-up (Acute) White matter abnormality on MRI of brain (Acute) Perimenopause (Acute) Right lumbar radiculitis (Acute) Frozen shoulder syndrome (Acute) Chronic vertigo (Acute) Environmental allergies (Acute) Itchy eyes (Acute) Major depression, recurrent (Acute) Fibroids (Acute) Cervical cancer screening (Acute) Perimenopausal menorrhagia (Acute) Menopausal menorrhagia (Acute) Encounter for routine gynecological examination (Acute) Encounter for general adult medical examination with abnormal findings (Acute) Breast screening (Acute) Tinea corporis (Acute) Morbid obesity due to excess calories (Acute) Arthrosis (Acute) Dyspepsia (Acute) Difficulty sleeping (Acute) Anxiety, generalized (Acute) Hypertension, essential (Acute) Past Medical History Medical History (Updated 10/15/23 @ 08:24 by Kat Pagan RN) Asthma Elevated cholesterol GERD (gastroesophageal reflux disease) Vertigo Anxiety Depression HTN (hypertension) COVID-19 Family History Family History Mother Diabetes Sister Diabetes HTN (hypertension) Colon cancer Paternal Uncle Colon cancer Surgical History Surgical History (Updated 10/15/23 @ 08:24 by Kat Pagan RN) Hx of cystoscopy H/O colonoscopy Hx of tubal ligation H/O shoulder surgery Hx of cholecystectomy Social History Social History Household Members: Significant Other Housing: House Do you presently have visiting nurse or other home services: Yes ([employer]) Alcohol intake: never Patient Tobacco Use Status: Never used Tobacco e-Cigarette/Vaping Use: Never Used Second Hand Smoke Exposure: No Use of substances other than those prescribed or required for medical reasons: No Substance Use Type: Marijuana Are you DNR?: No Advance Directives: No Advance Directives Information Provided: Yes service: No Current occupational status: disabled Cognitive needs: No Hearing needs: No Vision needs: No Meds Allergies Allergy/AdvReac Type Severity Reaction Status Date / Time No Known Allergies Allergy Verified 10/15/23 08:23 Exam Height,Weight and Vital Signs: Height 5 ft 2 in Weight 108.862 kg Assessment and Plan Assessment Anesthesia Assessment: Chart Reviewed Documented by User: Denia Duggan MD 10/15/23 09:15 PMFSH Past Medical History Medical History (Updated 10/15/23 @ 08:24 by Kat Pagan RN) Asthma Elevated cholesterol GERD (gastroesophageal reflux disease) Vertigo Anxiety Depression HTN (hypertension) COVID-19 Family History Family History Mother Diabetes Sister Diabetes HTN (hypertension) Colon cancer Paternal Uncle Colon cancer Family history of problems with anesthesia: No Surgical History Surgical History (Updated 10/15/23 @ 08:24 by Kat Pagan RN) Hx of cystoscopy H/O colonoscopy Hx of tubal ligation H/O shoulder surgery Hx of cholecystectomy Social History Social History Household Members: Significant Other Housing: House Do you presently have visiting nurse or other home services: Yes ([employer]) Alcohol intake: never Patient Tobacco Use Status: Never used Tobacco e-Cigarette/Vaping Use: Never Used Second Hand Smoke Exposure: No Use of substances other than those prescribed or required for medical reasons: No Substance Use Type: Marijuana Are you DNR?: No Advance Directives: No Advance Directives Information Provided: Yes service: No Current occupational status: disabled Cognitive needs: No Hearing needs: No Vision needs: No Meds Allergies Allergy/AdvReac Type Severity Reaction Status Date / Time No Known Allergies Allergy Verified 10/15/23 08:23 Exam Airway Mallampati Class: III TM Dist: <=3cm Heart: rrr Lungs: cta Assessment and Plan Assessment Anesthesia Assessment: Anesthesia Plan Discussed Final Anesthetic Review Family History of Problems with Anesthesia: No NPO: Yes ASA Class: III Final Preanesthetic Review: No Changes in Pt Med Stat, Meds/Allgs Chart Reviewed, Consent Obtained/Reviewed and Anes Risks/Benef Reviewed Patient Risk: Intermediate Procedure Risk: Low Anesthetic Plan Anesthetic Plan: MAC: Disposition: Standard PACU
[2023-10-15 08:25] VITALS: BMI 43.5
[2023-10-15 08:31] VITALS: BP 144/89; PULSE 57; RESP 16; TEMP 36.9; O2SAT 98
--- NOTE | 2023-10-15 08:43 | MHC.SHP ---
Pre-Procedural Eval Section A - 24 Hr Update-Section A only Date of Service: 10/15/23 Section B - Complete if H&P > 30 days Chief Complaint: Encounter for screening for malignant neoplasm of Details of Present Illness: Fh of cRC in sister, mother Relevant Family History (Specify if Yes): Yes Relevant Social History: Other (specify) (thc) Present Medications: see Short Stay Collaborative assessment Medical History: Significant History (Asthma Elevated cholesterol GERD (gastroesophageal reflux disease) Vertigo Anxiety Depression HTN (hypertension) COVID-19) History of Previous Operations: Relevant previous surgery/procedure and date(s) (Hx of cystoscopy H/O colonoscopy Hx of tubal ligation H/O shoulder surgery Hx of cholecystectomy) Allergies: Allergies Allergy/AdvReac Type Severity Reaction Status Date / Time No Known Allergies Allergy Verified 10/15/23 08:23 Review of Systems Sugical H&P ROS: Negative: Constitution, Cardiovascular, Respiratory, Neurological, Psychiatric, Hem-Onc, Allergic/Immunologic, Gastrointestinal, Genitourinary, Musculoskeletal, Integumentary, Endocrine and Eyes/Ears/Nose/Throat Exam Surgical H&P Exam: Normal: HEENT, Normal: Heart, Normal: Lungs, Normal: Extremities, Normal: Abdomen, Normal: Skin and Normal: Neurological Plan Diagnosis/Plan: Unchanged I have reviewed the history and physical and performed a pertinent physical examination on my patient. No changes have occurred unless specified. Time Spent With Patient Time: Total time managing care of this patient today ____ minutes.
[2023-10-15] MEDS: Lactated Ringers 1,000 ML 100 ML IVCONT (08:45)
--- NOTE | 2023-10-15 09:59 | W.PM.OPN ---
Operative Note Operative Note Date of Service: 10/15/23 Narrative: Operative Information Procedure Description: Colonoscopy Indication: screening, FH of CRC Anesthesia: MAC COLONOSCOPY Instrument: Olympus variable stiffness pediatric scope 190L Colonoscopy Monitoring: Vital signs and clinical assessment, continuous EKG monitoring, Pulse oximetry, Carbon Dioxide monitoring and blood pressure monitoring were done throughout the procedure. Colon withdrawal time was 9 minutes. Procedure: The patient was placed in the left lateral decubitis position and pre-procedure medications were administered. After a digital rectal examination of the ano-rectum, the video colonoscope was inserted into the rectum and advanced through the colon to the cecum/TI. The colonoscope was slowly withdrawn in a retrograde panoramic fashion and the colon mucosa was carefully examined including a retroflexed view of the rectum. Findings and interventions are described below. Procedure Difficulty: easy Findings: Terminal Ileum-not intubated due to looping Cecum:normal Ascending Colon: mild diverticulosis Transverse Colon -normal Descending Colon: scattered diverticulosis, 5-6 mm sessile polyp removed with cold forceps Sigmoid Colon: severe diverticulosis, with luminal narrowing and mucosal hypertrophy Rectum: Retroflexion with medium sized internal hemorrhoids seen, grade I Anorectum - normal Intervention: cold forceps polypectomy Colon preparation: [place] Bowel Preparation Scale Right colon; 3 Transverse colon: 3 Left colon; 3 (0 = Unprepared colon segment with mucosa not seen due to solid stool that cannot be cleared. 1 = Portion of mucosa of the colon segment seen, but other areas of the colon segment not well seen due to staining, residual stool and/or opaque liquid. 2 = Minor amount of residual staining, small fragments of stool and/or opaque liquid, but mucosa of colon segment seen well. 3 = Entire mucosa of colon segment seen well with no residual staining, small fragments of stool or opaque liquid) Impression and Post Procedure Diagnosis: diverticulosis colon polyp internal hemorrhoids Plan: High fiber diet leaflet Avoid straining at stool, epsom salts and sitz bath, anusol supps or cream Repeat Colonoscopy in 5 years due to FH of CRC or earlier if clinically indicated Above findings were reviewed with the patient and relevant handouts were provided if indicated.
[2023-10-15 10:05] VITALS: BP 95/62; PULSE 79; RESP 18; TEMP 37.1; O2SAT 100
[2023-10-15 10:20] VITALS: BP 115/73; PULSE 63; RESP 18; TEMP 36.6; O2SAT 97
== END 2023-10-15 10:45 | disposition home or self-care (01) ==
PROVIDERS: PCP Internal Medicine; Visit Provider Internal Medicine Gastroenterology
PROC: 0DJD8ZZ Inspection of Lower Intestinal Tract, Via Natural or Artificial Opening Endoscopic (ICD-10-PCS; CPT 45378; principal; 2023-10-15 09:50)
DX: Z12.11 Encounter for screening for malignant neoplasm of colon (principal); Z80.0 Family history of malignant neoplasm of digestive organs; K63.5 Polyp of colon; K57.30 Diverticulosis of large intestine without perforation or abscess without bleeding; K64.0 First degree hemorrhoids; K21.9 Gastro-esophageal reflux disease without esophagitis; E78.00 Pure hypercholesterolemia, unspecified; J45.909 Unspecified asthma, uncomplicated; I10 Essential (primary) hypertension; Z79.82 Long term (current) use of aspirin; Z79.899 Other long term (current) drug therapy; Z90.49 Acquired absence of other specified parts of digestive tract; Z86.16 Personal history of COVID-19
CPT/HCPCS: 45380; 88305; J2704

== ENCOUNTER → 2023-10-15 08:11 | Outpatient (BNV) | payer OTHER, SELFPAY | PROVIDERS: PCP Internal Medicine; Visit Provider Internal Medicine Gastroenterology | DX: Z12.11 Encounter for screening for malignant neoplasm of colon (principal); K63.5 Polyp of colon; K57.90 Diverticulosis of intestine, part unspecified, without perforation or abscess without bleeding; K64.8 Other hemorrhoids | CPT/HCPCS: 45380 ==

== ENCOUNTER 2023-12-16 12:38 | Outpatient (AMB) | payer OTHER, SELFPAY ==
[2023-12-16 12:46] VITALS: BP 122/74; PULSE 71; O2SAT 96; BMI 43.7
--- NOTE | 2023-12-16 12:46 | A.OFFPC_ITS ---
Vital Signs 12/16/23 12:46 Height 5 ft 2 in Weight 239 lb BMI 43.7 BP 122/74 Blood Pressure Location Rt brachial Position Sitting Pulse 71 Pulse Source Pulse Oximeter Pulse Oximetry (%) 96 Oxygen Delivery Method Room Air Intake Visit Reasons: 9 Month follow up Allergies No Known Allergies Allergy (Verified 12/16/23 12:50) Medication List - Last Reconciled 12/16/23 by Kinjal Tavares MD acetaminophen ER (Tylenol Arthritis Pain) 650 mg PO Q12H PRN 90 days albuterol sulfate 90 mcg/actuation 2 puffs inhalation Q4-6H PRN aspirin 81 mg PO DAILY 90 days azithromycin 250 mg PO ONCE 5 days lisinopril-hydrochlorothiazide 20-25 mg 1 tab PO DAILY 90 days meclizine 25 mg PO DAILY PRN 30 days omeprazole 20 mg PO DAILY 90 days prednisone 20 mg PO DAILY 5 days rosuvastatin 20 mg PO DAILY 90 days sertraline 200 mg (2 x 100 mg) PO DAILY [Shower chair with back As directed] zolpidem 10 mg PO BEDTIME 30 days Tobacco use date assessed: 12/16/23 Dental Screening Dental Screen Date: 12/16/23 Did you have a dental visit in the last 12 months?: Yes Did you have a dental problem in the last 6 months where you did not have access to dental care?: No Was dental information given to patient?: Patient has dentist HPI 9 Month follow up HPI Details Patient is 58-year-old female came in for her regular follow-up appointment Patient has been having cough and congestion for the past 2 weeks Her asthma is flaring up, patient says that at night when she lays down she is having difficulty breathing On examination she is able to take deep breaths, I did not hear any wheezing I have ordered chest x-ray for the patient Azithromycin sent and prednisone 20 mg once a day for 5 days sent Patient is going to [place] on of this month She will call me if she did not feel better after finishing medication or if she feels worse she need to go to emergency room She also have a chronic vertigo which is stable at this time Lipid disorder: Taking rosuvastatin tolerating medication due for labs Hypertension: Patient is taking lisinopril hydrochlorothiazide 20-25 mg, tolerating medication GERD is stable with omeprazole 20 mg and diet-controlled. Anxiety and depression: stable patient is taking sertraline 200 mg She takes zolpidem 10 mg at night due to difficulty sleeping., refill sent for next 3 month Allergies stable Patient has chronic bilateral shoulder pain And osteoarthritis multiple joints. She is morbidly obese having difficulty losing weight Follow-up 3 months COUNTS INCLUDE 234 BEDS AT [facility] Medical History Asthma Elevated cholesterol GERD (gastroesophageal reflux disease) Vertigo Anxiety Depression HTN (hypertension) COVID-19 Surgical History Hx of cystoscopy H/O colonoscopy Hx of tubal ligation H/O shoulder surgery Hx of cholecystectomy Family History Mother Diabetes Sister Diabetes HTN (hypertension) Colon cancer Paternal Uncle Colon cancer Social History Household Members: Significant Other Housing: House Do you presently have visiting nurse or other home services: Yes ([employer]) Alcohol intake: never Patient Tobacco Use Status: Never used Tobacco e-Cigarette/Vaping Use: Never Used Second Hand Smoke Exposure: No Substance Use Type: Marijuana service: No Current occupational status: disabled Cognitive needs: No Hearing needs: No Vision needs: No Female Reproductive History Menstrual Age of Menarche: 14 Questionnaire Thrive Questionnaire Date Thrive assessed: 03/18/23 AUDIT C Alcohol Use Questionnaire (AUDIT-C) 1. How often do you have a drink containing alcohol?: Never 3. How often do you have six or more drinks on one occasion?: Never Total Score: 0 Score Reviewed/Action Taken: Yes MANUELA-7 AMB Questionnaire MANUELA-7 Date MANUELA - 7 assessed: 06/26/23 Source: Developed by Drs. Agustin Lucas, Katie Brennan, Christopher Cee and colleagues, with an educational jean pierre from [employer]. Review of Systems Const Denies chills and Denies fever(s) ENT Denies epistaxis and Denies nasal discharge Resp Denies chest congestion and Denies hemoptysis GI Denies diarrhea and Denies nausea Skin/Breast Denies rash Neuro Reports no additional complaints Psych Reports no additional complaints Endo Reports no additional complaints Physical exam (Primary Care) Vital Signs: Last Vital Signs Pulse 71 12/16/23 12:46 BP 122/74 12/16/23 12:46 Pulse Ox 96 12/16/23 12:46 Oxygen Delivery Method Room Air 12/16/23 12:46 BMI result Body Mass Index 43.7 Tobacco/Smoking Status: Tobacco use Status Tobacco use date assessed 12/16/23 12/16/23 12:53 Patient Tobacco Use Status Never used Tobacco 12/16/23 12:53 Tobacco use type 05/30/22 13:54 e-Cigarette/Vaping Use Never Used 12/16/23 12:53 Thrive Assessment: Date of Thrive Assessment Date Thrive assessed 03/18/23 12/16/23 12:53 Const General: cooperative, comfortable and no acute distress Orientation/consciousness: patient oriented x3 HENMT Head: Yes normocephalic Eyes General: appearance normal, both eyes and all related structures Neck Neck: Yes supple Resp Effort & Inspection: normal respiratory effort, no cough and no stridor Cardio Rhythm: regular rhythm Heart sounds: S1 normal heart sound present and S2 normal heart sound present Skin General skin exam: turgor normal Neuro General: patient oriented x3, tone normal and moves all extremities Extrem Right lower extremity: no edema Left lower extremity: no edema Assessment and Plan Assessment & Plan (1) Acute bronchitis: Code(s): J20.9 - Acute bronchitis, unspecified Qualifiers: Bronchitis organism: other organism Qualified Code(s): J20.8 - Acute bronchitis due to other specified organisms (2) Lipid disorder: Code(s): E78.9 - Disorder of lipoprotein metabolism, unspecified (3) Chronic vertigo: Code(s): R42 - Dizziness and giddiness (4) Environmental allergies: Code(s): Z91.09 - Other allergy status, other than to drugs and biological substances (5) Major depression, recurrent: Code(s): F33.9 - Major depressive disorder, recurrent, unspecified Qualifiers: Active/Remission status: in partial remission Qualified Code(s): F33.41 - Major depressive disorder, recurrent, in partial remission (6) Morbid obesity due to excess calories: Code(s): E66.01 - Morbid (severe) obesity due to excess calories (7) Difficulty sleeping: Code(s): G47.9 - Sleep disorder, unspecified (8) Anxiety, generalized: Code(s): F41.1 - Generalized anxiety disorder (9) Hypertension, essential: Code(s): I10 - Essential (primary) hypertension (10) Dyspepsia: Code(s): R10.13 - Epigastric pain (11) Arthrosis: Code(s): M19.90 - Unspecified osteoarthritis, unspecified site Plan Patient is 58-year-old female came in for her regular follow-up appointment Patient has been having cough and congestion for the past 2 weeks Her asthma is flaring up, patient says that at night when she lays down she is having difficulty breathing On examination she is able to take deep breaths, I did not hear any wheezing I have ordered chest x-ray for the patient Azithromycin sent and prednisone 20 mg once a day for 5 days sent Patient is going to [place] on of this month She will call me if she did not feel better after finishing medication or if she feels worse she need to go to emergency room She also have a chronic vertigo which is stable at this time Lipid disorder: Taking rosuvastatin tolerating medication due for labs Hypertension: Patient is taking lisinopril hydrochlorothiazide 20-25 mg, tolerating medication GERD is stable with omeprazole 20 mg and diet-controlled. Anxiety and depression: stable patient is taking sertraline 200 mg She takes zolpidem 10 mg at night due to difficulty sleeping., refill sent for next 3 month Allergies stable Patient has chronic bilateral shoulder pain And osteoarthritis multiple joints. She is morbidly obese having difficulty losing weight Follow-up 3 months Orders: Orders XR chest 2V Today J20.9 - Acute bronchitis, unspecified Medications: New prednisone 20 mg PO DAILY 5 tabs 0RF 5 days azithromycin Take 2 tablets today then 1 daily 250 mg PO ONCE 6 tabs 0RF 5 days J06.9 - Acute upper respiratory infection, unspecified Refilled zolpidem 10 mg PO BEDTIME 30 tabs 2RF 30 days G47.9 - Sleep disorder, unspecified Coding Level of Care Code Est Pt Level 4 (41878) Complex EM visit Add On G2211 Diagnoses Acute bronchitis due to other specified organisms J20.8 Bronchitis organism: other organism Lipid disorder E78.9 Chronic vertigo R42 Environmental allergies Z91.09 Recurrent major depressive disorder, in partial remission F33.41 Active/Remission status: in partial remission Morbid obesity due to excess calories E66.01 Difficulty sleeping G47.9 Anxiety, generalized F41.1 Hypertension, essential I10 Dyspepsia R10.13 Arthrosis M19.90
== END 2023-12-16 14:11 | disposition home or self-care (01) ==
PROVIDERS: PCP Internal Medicine; Visit Provider Internal Medicine
DX: J20.8 Acute bronchitis due to other specified organisms (principal); F33.41 Major depressive disorder, recurrent, in partial remission; E66.01 Morbid (severe) obesity due to excess calories; Z68.41 Body mass index [BMI] 40.0-44.9, adult; E78.9 Disorder of lipoprotein metabolism, unspecified; R42 Dizziness and giddiness; Z91.09 Other allergy status, other than to drugs and biological substances; G47.9 Sleep disorder, unspecified; F41.1 Generalized anxiety disorder; I10 Essential (primary) hypertension; R10.13 Epigastric pain; M19.90 Unspecified osteoarthritis, unspecified site
CPT/HCPCS: 99214; G2211

== ENCOUNTER 2023-12-16 13:02 | Outpatient (REF) | payer OTHER, SELFPAY ==
--- NOTE | ~2023-12-16 | XR_ITS ---
EXAMINATION: XR CHEST 2 VIEW CLINICAL INFORMATION: Acute bronchitis COMPARISON: 02/17/2023 TECHNIQUE: PA and lateral views of the chest obtained. FINDINGS: The lungs are clear. There are no pleural effusions. The cardiomediastinal silhouette is normal. XR/XR chest 2V IMPRESSION: No acute cardiopulmonary disease.
== END 2023-12-16 13:03 | disposition home or self-care (01) ==
LOC: HO.HMGCX 13:02
PROVIDERS: PCP Internal Medicine; Visit Provider Internal Medicine
DX: J20.9 Acute bronchitis, unspecified (principal)
CPT/HCPCS: 71046

== ENCOUNTER 2024-03-23 13:20 | Outpatient (AMB) | payer OTHER, SELFPAY ==
[2024-03-23 13:22] VITALS: BP 140/80; PULSE 71; O2SAT 97; BMI 44.1
--- NOTE | 2024-03-23 13:22 | A.OFFPC_ITS ---
Vital Signs 03/23/24 13:22 Height 5 ft 2 in Weight 241 lb BMI 44.1 BP 140/80 H Blood Pressure Location Lt brachial Position Sitting Pulse 71 Pulse Source Pulse Oximeter Pulse Oximetry (%) 97 Oxygen Delivery Method Room Air Intake Visit Reasons: PE Allergies No Known Allergies Allergy (Verified 03/23/24 13:22) Medication List - Last Reconciled 03/23/24 by Kinjal Tavares MD acetaminophen ER (Tylenol Arthritis Pain) 650 mg PO Q12H PRN 90 days albuterol sulfate 90 mcg/actuation 2 puffs inhalation Q4-6H PRN aspirin 81 mg PO DAILY 90 days lisinopril-hydrochlorothiazide 20-25 mg 1 tab PO DAILY 90 days meclizine 25 mg PO DAILY PRN 30 days omeprazole 20 mg PO DAILY 90 days rosuvastatin 20 mg PO DAILY 90 days sertraline 200 mg (2 x 100 mg) PO DAILY [Shower chair with back As directed] zolpidem 10 mg PO BEDTIME 30 days Tobacco use date assessed: 03/23/24 Dental Screening Dental Screen Date: 03/23/24 Did you have a dental visit in the last 12 months?: Yes Did you have a dental problem in the last 6 months where you did not have access to dental care?: No Was dental information given to patient?: Patient has dentist HPI PE HPI Details Patient is a 59-year-old female came in today for physical examination Patient is having right lumbar radiculitis having difficulty walking even But there is no weakness leg, I am treating her with prednisone, and she will be evaluated by pain management [facility] Patient is also due for sleep study, few years ago she had sleep study which showed borderline sleep apnea She says that it is getting worse and she is having difficulty sleeping even with Ambien I am holding her Ambien and I have ordered repeat sleep study for the patient. Also complaining itchy eyes, requesting eyedrops Colonoscopy October of this year Mammogram is up-to-date Pap smear is up-to-date Lab order placed to be done today Medication wrist reviewed Patient need to lose weight she is morbidly obese. Follow-up 3 months for medication refill PFSH Medical History Asthma Elevated cholesterol GERD (gastroesophageal reflux disease) Vertigo Anxiety Depression HTN (hypertension) COVID-19 Surgical History Hx of cystoscopy H/O colonoscopy Hx of tubal ligation H/O shoulder surgery Hx of cholecystectomy Family History Mother Diabetes Sister Diabetes HTN (hypertension) Colon cancer Paternal Uncle Colon cancer Social History Household Members: Significant Other Housing: House Do you presently have visiting nurse or other home services: Yes ([employer]) Alcohol intake: never Patient Tobacco Use Status: Never used Tobacco e-Cigarette/Vaping Use: Never Used Second Hand Smoke Exposure: No Substance Use Type: Marijuana service: No Current occupational status: disabled Cognitive needs: No Hearing needs: No Vision needs: No Female Reproductive History Menstrual Age of Menarche: 14 Questionnaire PHQ-9 Over the last 2 weeks, how often have you been bothered by any of the following problems? 1. Little interest or pleasure in doing things: nearly every day 2. Feeling down, depressed, or hopeless: more than half the days 3. Trouble falling or staying asleep, or sleeping too much: more than half the days 4. Feeling tired or having little energy: several days 5. Poor appetite or overeating: not at all 6. Feeling bad about yourself - or that you are a failure or have let yourself or your family down: not at all 7. Trouble concentrating on things, such as reading the newspaper or watching television: not at all 8. Moving or speaking so slowly that other people could have noticed. Or the opposite - being so fidgety or restless that you have been moving around a lot more than usual: nearly every day 9. Thoughts that you would be better off or of hurting yourself in some way: not at all Total score: 11 Depression Screening Interpretation: Positive Depression Screening Follow-up: Existing condition and In treatment Depression Screening Done: Yes 01141 - PHQ-9 Billing: Yes Source: Developed by Drs. Agustin Lucas, Katie Brennan, Christopher Cee and colleagues, with an educational jean pierre from [employer]. Thrive Questionnaire Date Thrive assessed: 03/23/24 I am a: Patient What is your living situation today?: I have a steady place to live Within the past 12 months, did the food you bought not last and you didn't have the money to get more?: I choose not to answer this question Within the past 12 months, did you worry whether your food would run out before you got money to buy more?: I choose not to answer this question Do you have trouble paying for medicines?: No Do you have trouble getting transportation to medical appointments?: No Do you have trouble paying your heating and electricity bill?: No Do you have trouble taking care of your child, family member or friend?: Yes Do you have trouble with day-to-day activities such as bathing, preparing meals, shopping, managing finances, etc.?: Yes Are you currently unemployed and looking for a job?: Yes Are you interested in more education?: No Please select the resources that you would like help with: None Currently or been in a relationship where the following occur: I choose not to answer THRIVE Score: 0 AUDIT C Alcohol Use Questionnaire (AUDIT-C) 1. How often do you have a drink containing alcohol?: Never Total Score: 0 MANUELA-7 AMB Questionnaire MANUELA-7 Date MANUELA - 7 assessed: 03/23/24 Feeling nervous, anxious, or on edge: 0 = Not at all Not being able to stop or control worryin = Not at all Worrying too much about different things: 0 = Not at all Trouble relaxin = Not at all Being so restless that it is hard to sit still: 0 = Not at all Becoming easily annoyed or irritable: 0 = Not at all Feeling afraid as if something awful might happen: 0 = Not at all Total MANUELA-7 score (0-4 normal; 5-9 mild; 10-14 moderate; 15-21 severe): 0 Source: Developed by Drs. Agustin Lucas, Katie Brennan, Christopher Cee and colleagues, with an educational jean pierre from [employer]. Review of Systems Const Denies chills, Denies fever(s) and Denies headache(s) Eyes Denies blurry vision ENT Denies headache(s), Denies nasal discharge, Denies nasal obstruction, Denies odynophagia and Denies sinus pain Card Denies chest pain at rest and Denies chest pain with activity Resp Denies cough and Denies hemoptysis GI Denies diarrhea, Denies odynophagia, Denies vomiting and Denies hematemesis Reports as per HPI Musc Denies abnormal gait Skin/Breast Reports as per HPI Neuro Denies Neuro-related abnormal movements, Denies Abnormal speech present, Denies abnormal gait, Denies headache(s) and Denies Sensory deficit (Neuro) Psych Denies mood swings and Denies paranoia Endo Reports as per HPI Abisai/Lymph Reports as per HPI Aller/Immun Reports as per HPI Physical exam (Primary Care) Vital Signs: Last Vital Signs Pulse 71 03/23/24 13:22 BP 140/80 H 03/23/24 13:22 Pulse Ox 97 03/23/24 13:22 Oxygen Delivery Method Room Air 03/23/24 13:22 BMI result Body Mass Index 44.1 Tobacco/Smoking Status: Tobacco use Status Tobacco use date assessed 03/23/24 03/23/24 13:26 Patient Tobacco Use Status Never used Tobacco 03/23/24 13:26 Tobacco use type 05/30/22 13:54 e-Cigarette/Vaping Use Never Used 03/23/24 13:26 PHQ-9: PHQ-9 Score PHQ-9: Total score 11 03/23/24 13:41 Depression Screening Interpretation: Positive Depression Screening Follow-up: Existing condition and In treatment Thrive Assessment: Date of Thrive Assessment Date Thrive assessed 03/23/24 03/23/24 13:26 Currently or been in a relationship where the following occur: I choose not to answer Const General: cooperative, comfortable and no acute distress Orientation/consciousness: patient oriented x3 HENMT Head: Yes normocephalic and Yes atraumatic Eyes General: appearance normal, both eyes and all related structures Pupils: Equal, round and reactive pupils present EOM: EOMs intact bilaterally Neck Neck: Yes supple and No lymphadenopathy Thyroid: Thyroid normal Lymphatic: no lymphadenopathy noted Resp Effort & Inspection: normal respiratory effort and able to speak in complete sentences Auscultation: clear to auscultation bilaterally Cardio Heart sounds: S1 normal heart sound present and S2 normal heart sound present GI Palpation (GI): Soft to palpation and nontender Auscultation: normal bowel sounds General: Yes no CVA tenderness Back/Spine/Pelvis Back: no CVA tenderness Skin General skin exam: elasticity normal and turgor normal Neuro Other: Straight leg positive right side General: patient oriented x3 and gait normal Cranial nerves: Yes Equal, round and reactive pupils present Speech: No Abnormal speech present Sensory Exam: No Sensory deficit (Neuro) Coordination: Romberg test negative Extrem General: Yes normal exam except as noted and No edema Assessment and Plan Assessment & Plan (1) Encounter for general adult medical examination with abnormal findings: Code(s): Z00.01 - Encounter for general adult medical examination with abnormal findings (2) Right lumbar radiculitis: Code(s): M54.16 - Radiculopathy, lumbar region (3) Hypertension, essential: Code(s): I10 - Essential (primary) hypertension (4) Anxiety, generalized: Code(s): F41.1 - Generalized anxiety disorder (5) Lipid disorder: Code(s): E78.9 - Disorder of lipoprotein metabolism, unspecified (6) Sleep apnea: Code(s): G47.30 - Sleep apnea, unspecified Qualifiers: Sleep apnea type: unspecified type Qualified Code(s): G47.30 - Sleep apnea, unspecified (7) Morbid obesity due to excess calories: Code(s): E66.01 - Morbid (severe) obesity due to excess calories (8) Arthrosis: Code(s): M19.90 - Unspecified osteoarthritis, unspecified site (9) Difficulty sleeping: Code(s): G47.9 - Sleep disorder, unspecified (10) Major depression, recurrent: Code(s): F33.9 - Major depressive disorder, recurrent, unspecified Qualifiers: Active/Remission status: in partial remission Qualified Code(s): F33.41 - Major depressive disorder, recurrent, in partial remission (11) Environmental allergies: Code(s): Z91.09 - Other allergy status, other than to drugs and biological substances Plan Patient is a 59-year-old female came in today for physical examination Patient is having right lumbar radiculitis having difficulty walking even But there is no weakness leg, I am treating her with prednisone, and she will be evaluated by pain management [facility] Patient is also due for sleep study, few years ago she had sleep study which showed borderline sleep apnea She says that it is getting worse and she is having difficulty sleeping even with Ambien I am holding her Ambien and I have ordered repeat sleep study for the patient. Also complaining itchy eyes, requesting eyedrops Colonoscopy October of this year Mammogram is up-to-date Pap smear is up-to-date Lab order placed to be done today Medication wrist reviewed Patient need to lose weight she is morbidly obese. Follow-up 3 months for medication refill Orders: Orders Hemoglobin A1c Today E66.01 - Morbid (severe) obesity due to excess calories, E78.9 - Disorder of lipoprotein metabolism, unspecified, F33.41 - Major depressive disorder, recurrent, in partial remission, F41.1 - Generalized anxiety disorder, G47.9 - Sleep disorder, unspecified, I10 - Essential (primary) hypertension, M19.90 - Unspecified osteoarthritis, unspecified site, Z00.01 - Encounter for general adult medical examination with abnormal findings, Z91.09 - Other allergy status, other than to drugs and biological substances Complete Blood Count Auto Diff Today E66.01 - Morbid (severe) obesity due to excess calories, E78.9 - Disorder of lipoprotein metabolism, unspecified, F33.41 - Major depressive disorder, recurrent, in partial remission, F41.1 - Generalized anxiety disorder, G47.9 - Sleep disorder, unspecified, I10 - Essential (primary) hypertension, M19.90 - Unspecified osteoarthritis, unspecified site, Z00.01 - Encounter for general adult medical examination with abnormal findings, Z91.09 - Other allergy status, other than to drugs and biological substances LDL Cholesterol Direct Today E66.01 - Morbid (severe) obesity due to excess calories, E78.9 - Disorder of lipoprotein metabolism, unspecified, F33.41 - Major depressive disorder, recurrent, in partial remission, F41.1 - Generalized anxiety disorder, G47.9 - Sleep disorder, unspecified, I10 - Essential (primary) hypertension, M19.90 - Unspecified osteoarthritis, unspecified site, Z00.01 - Encounter for general adult medical examination with abnormal findings, Z91.09 - Other allergy status, other than to drugs and biological substances RT home sleep study Today E66.01 - Morbid (severe) obesity due to excess calories, G47.30 - Sleep apnea, unspecified, G47.9 - Sleep disorder, unspecified Comprehensive Met. Panel Today E66.01 - Morbid (severe) obesity due to excess calories, E78.9 - Disorder of lipoprotein metabolism, unspecified, F33.41 - Major depressive disorder, recurrent, in partial remission, F41.1 - Generalized anxiety disorder, G47.9 - Sleep disorder, unspecified, I10 - Essential (primary) hypertension, M19.90 - Unspecified osteoarthritis, unspecified site, Z00.01 - Encounter for general adult medical examination with abnormal findings, Z91.09 - Other allergy status, other than to drugs and biological substances Referrals Pain Management Referral M54.16 - Radiculopathy, lumbar region Medications: New naphazoline-pheniramine 0.025-0.3 % (Naphcon-A) 1 drp ophthalmic (eye) BID-QID 30 days PRN 15 mL 0RF Itchy eyes prednisone 20 mg PO DAILY 5 days 5 tabs 0RF Coding Level of Care Code Est Pt Level 4 (37914) Est Pt Prev Care 40-64y(01377) Diagnoses Encounter for general adult medical examination with abnormal findings Z00.01 Right lumbar radiculitis M54.16 Hypertension, essential I10 Anxiety, generalized F41.1 Lipid disorder E78.9 Sleep apnea, unspecified type G47.30 Sleep apnea type: unspecified type Morbid obesity due to excess calories E66.01 Arthrosis M19.90 Difficulty sleeping G47.9 Recurrent major depressive disorder, in partial remission F33.41 Active/Remission status: in partial remission Environmental allergies Z91.09
== END 2024-03-23 13:55 | disposition home or self-care (01) ==
PROVIDERS: PCP Internal Medicine; Visit Provider Internal Medicine
DX: Z00.01 Encounter for general adult medical examination with abnormal findings (principal); E66.01 Morbid (severe) obesity due to excess calories; F33.41 Major depressive disorder, recurrent, in partial remission; Z68.41 Body mass index [BMI] 40.0-44.9, adult; M54.16 Radiculopathy, lumbar region; Z91.09 Other allergy status, other than to drugs and biological substances; I10 Essential (primary) hypertension; F41.1 Generalized anxiety disorder; G47.9 Sleep disorder, unspecified; E78.9 Disorder of lipoprotein metabolism, unspecified; G47.30 Sleep apnea, unspecified; M19.90 Unspecified osteoarthritis, unspecified site
CPT/HCPCS: 99214; 99396

== ENCOUNTER 2024-03-23 13:49 | Outpatient (REF) | payer OTHER, SELFPAY ==
[2024-03-23 16:21] LABS: MANUAL DIFF FLAG NO
[2024-03-23 16:29] LABS: Basophils Percent Auto 0.5 % (0-2); Hematocrit 37.1 % (37.0-47.0); Hemoglobin 12.4 g/dl (12.0-16.0); Imm Gran Abs Auto 0.01 X10*3/uL (0.00-0.03); Imm Gran Pct Auto 0.3 % (0.0-0.4); Lymphocytes Absolute Auto 1.3 X10*3/uL (1.2-4.9); Lymphocytes Percent Auto 31.9 % (20-40); Mean Corpuscular HGB Conc 33.4 g/dl (31.0-35.0); Mean Corpuscular Hemoglobin 30.3 pg (27.0-33.0); Mean Corpuscular Volume 90.7 fL (80.0-98.0); Mean Platelet Volume 10.7 fL (9.4-12.3); Monocytes Absolute Auto 0.6 X10*3/uL (0.1-1.2); Monocytes Percent Auto 13.9 % (2-11); Neutrophils Absolute Auto 2.1 x10*3/uL (2.0-8.3); Neutrophils Percent Auto 52.4 % (45-73); Platelet Count 205 X10*3/uL (160-400); Red Blood Count 4.09 X10*6/uL (4.20-5.50); Red Cell Distribution Width 13.2 % (11.0-16.0)
[2024-03-23 16:33] LABS: Estimated Average Glucose 108 mg/dL; Hemoglobin A1c % 5.4 % (<6.0)
[2024-03-23 16:44] LABS: Alanine Aminotransferase 30 U/L (0-31); Albumin Level 4.1 g/dL (3.5-5.0); Alkaline Phosphatase 77 U/L (39-117); Anion Gap 12 (12-20); Aspartate Amino Transferase 27 U/L (5-31); Bilirubin Total 0.4 mg/dL (0.0-1.0); Blood Urea Nitrogen 13 mg/dL (9-16); Calcium 9.3 mg/dL (8.4-10.2); Carbon Dioxide 25 mmol/L (22-29); Chloride 108 mmol/L (96-108); Estimated Glomerular Filt Rate > 60; Glucose Random 99 mg/dL (60-115); Sodium 141 mmol/L (135-145); Total Protein 7.1 g/dL (6.5-8.0)
[2024-03-25 10:18] LABS: LDL Cholesterol Direct 102 mg/dL (<100)
== END 2024-03-23 13:50 | disposition home or self-care (01) ==
LOC: HO.HMGCLDS 13:49
PROVIDERS: PCP Internal Medicine; Visit Provider Internal Medicine
DX: Z00.01 Encounter for general adult medical examination with abnormal findings (principal); Z13.1 Encounter for screening for diabetes mellitus; E66.01 Morbid (severe) obesity due to excess calories; M19.90 Unspecified osteoarthritis, unspecified site; G47.9 Sleep disorder, unspecified; F41.1 Generalized anxiety disorder; I10 Essential (primary) hypertension; F33.41 Major depressive disorder, recurrent, in partial remission; Z91.09 Other allergy status, other than to drugs and biological substances; E78.9 Disorder of lipoprotein metabolism, unspecified
CPT/HCPCS: 36415; 80053; 83036; 83721; 85025

== ENCOUNTER → 2024-04-28 13:01 | Outpatient (REF) | payer OTHER, SELFPAY | LOC: HO.SL 13:01 | PROVIDERS: PCP Internal Medicine; Visit Provider Internal Medicine | DX: G47.9 Sleep disorder, unspecified (principal); E66.01 Morbid (severe) obesity due to excess calories; G47.30 Sleep apnea, unspecified | CPT/HCPCS: 95806 ==

== ENCOUNTER → 2024-04-29 13:10 | Outpatient (BNV) | payer OTHER, SELFPAY | PROVIDERS: PCP Internal Medicine; Visit Provider Internal Medicine | DX: G47.33 Obstructive sleep apnea (adult) (pediatric) (principal) | CPT/HCPCS: 95806 ==

== ENCOUNTER 2024-05-31 16:19 | Outpatient (REF) | payer OTHER, SELFPAY ==
--- NOTE | ~2024-05-31 | MM_ITS ---
EXAMINATION: MM SCREENING DIGITAL BREAST TOMOSYNTHESIS, BILATERAL CLINICAL INFORMATION: Screening. Asymptomatic. COMPARISON: Mammography: Comparison is made with available priors TECHNIQUE: Digital breast mammography with tomosynthesis is performed in both the craniocaudal and mediolateral oblique views along with computer-aided detection (CAD). FINDINGS: There are scattered areas of fibroglandular density (ACR BI-RADS breast composition Category b). There are no significant masses, abnormal calcifications, or other abnormalities. MM/MM tomosynthesis screening BI IMPRESSION: No mammographic evidence of malignancy. ASSESSMENT: BI-RADS BI-RADS 1 - Negative RECOMMENDATION: Routine annual mammography screening. 1 year F/U This examination should not preclude the clinical evaluation of a suspicious palpable abnormality. This patient's information was entered into a reminder system with a target due date for their next mammogram. Electronically signed by: Cydney Gar DO 06/13/2024 03:49 PM [facility]
== END 2024-05-31 16:20 | disposition home or self-care (01) ==
LOC: HO.MAMMO 16:19
PROVIDERS: PCP Internal Medicine; Visit Provider Internal Medicine
DX: Z12.31 Encounter for screening mammogram for malignant neoplasm of breast (principal)
CPT/HCPCS: 77063; 77067

== ENCOUNTER → 2024-05-31 16:30 | Outpatient (BNV) | payer OTHER, SELFPAY | PROVIDERS: PCP Internal Medicine; Visit Provider Internal Medicine | DX: Z12.31 Encounter for screening mammogram for malignant neoplasm of breast (principal) | CPT/HCPCS: 77063; 77067 ==

== ENCOUNTER 2024-06-28 14:40 | Outpatient (AMB) | payer OTHER, SELFPAY ==
[2024-06-28 14:43] VITALS: BP 126/74; PULSE 82; O2SAT 98; BMI 44.5
--- NOTE | 2024-06-28 14:43 | MHC.PC.OV ---
Vital Signs 06/28/24 14:43 Height 5 ft 2 in Weight 243 lb 4 oz BMI 44.5 BP 126/74 Blood Pressure Location Lt brachial Position Sitting Pulse 82 Pulse Source Pulse Oximeter Pulse Oximetry (%) 98 Oxygen Delivery Method Room Air Intake Visit Reasons: 3 thu f/ Allergies No Known Allergies Allergy (Verified 06/28/24 14:44) Medication List - Last Reconciled 06/28/24 by Kinjal Tavares MD acetaminophen ER (Tylenol Arthritis Pain) 650 mg PO Q12H PRN 90 days albuterol sulfate 90 mcg/actuation 2 puffs inhalation Q4-6H PRN alprazolam 0.25 mg PO DAILY PRN 30 days aspirin 81 mg PO DAILY 90 days lisinopril-hydrochlorothiazide 20-25 mg 1 tab PO DAILY 90 days meclizine 25 mg PO DAILY PRN 30 days naphazoline-pheniramine 0.025-0.3 % (Naphcon-A) 1 drp ophthalmic (eye) BID-QID PRN 30 days omeprazole 20 mg PO DAILY 90 days rosuvastatin 20 mg PO DAILY 90 days sertraline 200 mg (2 x 100 mg) PO DAILY [Shower chair with back As directed] zolpidem 10 mg PO BEDTIME 30 days Tobacco use date assessed: 06/28/24 Dental Screening Dental Screen Date: 06/28/24 Did you have a dental visit in the last 12 months?: Yes Did you have a dental problem in the last 6 months where you did not have access to dental care?: No Was dental information given to patient?: Patient has dentist HPI 3 thu/ HPI Details Patient is a 59-year-old female came in today for her regular follow-up appointment Sleep study done May 10, showed patient may be treated with conservative by year especially with the aggressive weight reduction. However if patient is symptomatic and not able to lose weight then patient would benefit from CPAP therapy which can be started with auto PAP mode and pressure setting of 6-12 cm followed by close monitoring for compliance and benefit Patient says that she feels pain both side of her chest specially at night She is trying to sleep on side but still having difficulty She is also complaining of feeling wheezy at night She is requesting a script for prednisone which I have sent for her Chest x-ray order She will be seeing timber management specialist for further management Recently her nephew she is feeling very emotional and is crying She is taking sertraline for anxiety patient has an underlying anxiety disorder 200 mg She takes Ambien at night to sleep but even that is not helping these days I have sent alprazolam small dose to be taken in the morning only as needed She is having difficulty losing weight Patient's other medications are rosuvastatin for lipid control Omeprazole for GERD Lisinopril hydrochlorothiazide for blood pressure control Allergies stable We will set up a telephone visit in 3 weeks to see how she is doing anxiety Lacy And to go over chest x-ray report [facility] Medical History Asthma Elevated cholesterol GERD (gastroesophageal reflux disease) Vertigo Anxiety Depression HTN (hypertension) COVID-19 Surgical History Hx of cystoscopy H/O colonoscopy Hx of tubal ligation H/O shoulder surgery Hx of cholecystectomy Family History Mother Diabetes Sister Diabetes HTN (hypertension) Colon cancer Paternal Uncle Colon cancer Social History Household Members: Significant Other Housing: House 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) Alcohol intake: never Patient Tobacco Use Status: Never used Tobacco e-Cigarette/Vaping Use: Never Used Second Hand Smoke Exposure: No Substance Use Type: Marijuana service: No Current occupational status: disabled Cognitive needs: No Hearing needs: No Vision needs: No Female Reproductive History Menstrual Age of Menarche: 14 Questionnaire Thrive Questionnaire Date Thrive assessed: 06/28/24 I am a: Patient What is your living situation today?: I have a steady place to live Within the past 12 months, did the food you bought not last and you didn't have the money to get more?: I choose not to answer this question Within the past 12 months, did you worry whether your food would run out before you got money to buy more?: I choose not to answer this question Do you have trouble paying for medicines?: No Do you have trouble getting transportation to medical appointments?: No Do you have trouble paying your heating and electricity bill?: No Do you have trouble taking care of your child, family member or friend?: Yes Do you have trouble with day-to-day activities such as bathing, preparing meals, shopping, managing finances, etc.?: Yes Are you currently unemployed and looking for a job?: Yes Are you interested in more education?: No Please select the resources that you would like help with: None Currently or been in a relationship where the following occur: I choose not to answer THRIVE Score: 0 AUDIT C Alcohol Use Questionnaire (AUDIT-C) 1. How often do you have a drink containing alcohol?: Never 3. How often do you have six or more drinks on one occasion?: Never Total Score: 0 Score Reviewed/Action Taken: Yes MANUELA-7 AMB Questionnaire MANUELA-7 Date MANUELA - 7 assessed: 03/23/24 Source: Developed by Drs. Agustin Lucas, Katie Brennan, Christopher Cee and colleagues, with an educational jean pierre from [employer]. Review of Systems Const Denies chills and Denies fever(s) ENT Denies epistaxis and Denies nasal discharge Resp Denies chest congestion, Denies cough and Denies hemoptysis GI Denies diarrhea and Denies nausea Skin/Breast Denies rash Neuro Reports no additional complaints Psych Reports no additional complaints Endo Reports no additional complaints Physical exam (Primary Care) Vital Signs: Last Vital Signs Pulse 82 06/28/24 14:43 BP 126/74 06/28/24 14:43 Pulse Ox 98 06/28/24 14:43 Oxygen Delivery Method Room Air 06/28/24 14:43 BMI result Body Mass Index 44.5 Tobacco/Smoking Status: Tobacco use Status Tobacco use date assessed 06/28/24 06/28/24 14:47 Patient Tobacco Use Status Never used Tobacco 06/28/24 14:47 Tobacco use type 05/30/22 13:54 e-Cigarette/Vaping Use Never Used 06/28/24 14:47 Thrive Assessment: Date of Thrive Assessment Date Thrive assessed 06/28/24 06/28/24 14:50 Currently or been in a relationship where the following occur: I choose not to answer Const General: cooperative, comfortable and no acute distress Orientation/consciousness: patient oriented x3 HENMT Head: Yes normocephalic Eyes General: appearance normal, both eyes and all related structures Neck Neck: Yes supple Resp Other: Unable to hear the chest clearly due to body habitus and patient not taking deep breaths Effort & Inspection: normal respiratory effort, no cough and no stridor Cardio Rhythm: regular rhythm Heart sounds: S1 normal heart sound present and S2 normal heart sound present Skin General skin exam: turgor normal Neuro General: patient oriented x3, tone normal and moves all extremities Extrem Right lower extremity: no edema Left lower extremity: no edema Coding Level of Care Code Est Pt Level 4 (58729) Complex EM visit Add On G2211 Diagnoses Wheezing R06.2 Non-cardiac chest pain R07.89 Sleep apnea, unspecified type G47.30 Sleep apnea type: unspecified type Hypertension, essential I10 Anxiety, generalized F41.1 Difficulty sleeping G47.9 Morbid obesity due to excess calories E66.01 Recurrent major depressive disorder, in partial remission F33.41 Active/Remission status: in partial remission Itchy eyes R68.89 Lipid disorder E78.9 Assessment & Plan Assessment & Plan (1) Wheezing: Code(s): R06.2 - Wheezing Category: Medical (2) Non-cardiac chest pain: Code(s): R07.89 - Other chest pain Category: Medical (3) Sleep apnea: Code(s): G47.30 - Sleep apnea, unspecified Category: Medical Qualifiers: Sleep apnea type: unspecified type Qualified Code(s): G47.30 - Sleep apnea, unspecified (4) Hypertension, essential: Code(s): I10 - Essential (primary) hypertension Category: Medical (5) Anxiety, generalized: Code(s): F41.1 - Generalized anxiety disorder Category: Medical (6) Difficulty sleeping: Code(s): G47.9 - Sleep disorder, unspecified Category: Medical (7) Morbid obesity due to excess calories: Code(s): E66.01 - Morbid (severe) obesity due to excess calories Category: Medical (8) Major depression, recurrent: Code(s): F33.9 - Major depressive disorder, recurrent, unspecified Category: Medical Qualifiers: Active/Remission status: in partial remission Qualified Code(s): F33.41 - Major depressive disorder, recurrent, in partial remission (9) Itchy eyes: Code(s): R68.89 - Other general symptoms and signs Category: Medical (10) Lipid disorder: Code(s): E78.9 - Disorder of lipoprotein metabolism, unspecified Category: Medical Plan Patient is a 59-year-old female came in today for her regular follow-up appointment Sleep study done May 10, showed patient may be treated with conservative by year especially with the aggressive weight reduction. However if patient is symptomatic and not able to lose weight then patient would benefit from CPAP therapy which can be started with auto PAP mode and pressure setting of 6-12 cm followed by close monitoring for compliance and benefit Patient says that she feels pain both side of her chest specially at night She is trying to sleep on side but still having difficulty She is also complaining of feeling wheezy at night She is requesting a script for prednisone which I have sent for her Chest x-ray order She will be seeing timber management specialist for further management Recently her nephew she is feeling very emotional and is crying She is taking sertraline for anxiety patient has an underlying anxiety disorder 200 mg She takes Ambien at night to sleep but even that is not helping these days I have sent alprazolam small dose to be taken in the morning only as needed She is having difficulty losing weight Patient's other medications are rosuvastatin for lipid control Omeprazole for GERD Lisinopril hydrochlorothiazide for blood pressure control Allergies stable We will set up a telephone visit in 3 weeks to see how she is doing anxiety Lacy And to go over chest x-ray report Orders: Orders XR chest 2V Today R06.2 - Wheezing, R07.89 - Other chest pain Referrals Pulmonology Referral G47.30 - Sleep apnea, unspecified, R06.2 - Wheezing, R07.89 - Other chest pain Medications: New alprazolam 0.25 mg PO DAILY 30 days PRN 30 tabs 0RF anxiety Refilled prednisone 20 mg PO DAILY 5 days 5 tabs 0RF
== END 2024-06-28 15:12 | disposition home or self-care (01) ==
PROVIDERS: PCP Internal Medicine; Visit Provider Internal Medicine
DX: R06.2 Wheezing (principal); E66.01 Morbid (severe) obesity due to excess calories; F33.41 Major depressive disorder, recurrent, in partial remission; Z68.41 Body mass index [BMI] 40.0-44.9, adult; R07.89 Other chest pain; G47.30 Sleep apnea, unspecified; I10 Essential (primary) hypertension; F41.1 Generalized anxiety disorder; G47.9 Sleep disorder, unspecified; R68.89 Other general symptoms and signs; E78.9 Disorder of lipoprotein metabolism, unspecified

== ENCOUNTER 2024-06-28 14:40 | Outpatient (REF) | payer OTHER, SELFPAY ==
--- NOTE | ~2024-06-28 | XR_ITS ---
EXAMINATION: XR CHEST CLINICAL INFORMATION: R06.2 - Wheezing COMPARISON: December 16, 2023 TECHNIQUE: 2 views of the chest were obtained. FINDINGS: No significant abnormality is noted involving the heart, lungs, mediastinum, bony thorax or soft tissues. XR/XR chest 2V IMPRESSION: Unremarkable examination. Electronically signed by: Lars Khan MD 06/28/2024 07:18 PM [facility]
== END 2024-06-28 14:41 | disposition home or self-care (01) ==
LOC: HO.HMGCX 14:40
PROVIDERS: PCP Internal Medicine; Visit Provider Internal Medicine
DX: R06.2 Wheezing (principal); R07.89 Other chest pain; G47.30 Sleep apnea, unspecified; I10 Essential (primary) hypertension; F41.1 Generalized anxiety disorder; G47.9 Sleep disorder, unspecified; E66.01 Morbid (severe) obesity due to excess calories; Z68.41 Body mass index [BMI] 40.0-44.9, adult; F33.41 Major depressive disorder, recurrent, in partial remission; R68.89 Other general symptoms and signs; E78.9 Disorder of lipoprotein metabolism, unspecified; Z79.899 Other long term (current) drug therapy
CPT/HCPCS: 71046; 99212

== ENCOUNTER 2024-07-20 11:55 | Outpatient (AMB) | payer OTHER, SELFPAY ==
[2024-07-20 12:01] VITALS: BP 126/78; PULSE 59; O2SAT 96; BMI 43.8
--- NOTE | 2024-07-20 12:01 | MHC.PC.OV ---
Vital Signs 07/20/24 12:01 Height 5 ft 2 in Weight 239 lb 8 oz BMI 43.8 BP 126/78 Blood Pressure Location Rt brachial Position Sitting Pulse 59 Pulse Source Pulse Oximeter Pulse Oximetry (%) 96 Oxygen Delivery Method Room Air Intake Visit Reasons: 3 weeks f/up Allergies No Known Allergies Allergy (Verified 07/20/24 12:02) Medication List - Last Reconciled 07/20/24 by Kinjal Tavares MD acetaminophen ER (Tylenol Arthritis Pain) 650 mg PO Q12H PRN 90 days albuterol sulfate 90 mcg/actuation 2 puffs inhalation Q4-6H PRN alprazolam 0.25 mg PO DAILY PRN 30 days aspirin 81 mg PO DAILY 90 days lisinopril-hydrochlorothiazide 20-25 mg 1 tab PO DAILY 90 days meclizine 25 mg PO DAILY PRN 30 days naphazoline-pheniramine 0.025-0.3 % (Naphcon-A) 1 drp ophthalmic (eye) BID-QID PRN 30 days omeprazole 20 mg PO DAILY 90 days rosuvastatin 20 mg PO DAILY 90 days sertraline 200 mg (2 x 100 mg) PO DAILY [Shower chair with back As directed] zolpidem 10 mg PO BEDTIME 30 days Tobacco use date assessed: 07/20/24 Dental Screening Dental Screen Date: 07/20/24 Did you have a dental visit in the last 12 months?: No Did you have a dental problem in the last 6 months where you did not have access to dental care?: No Was dental information given to patient?: No HPI 3 weeks f/up HPI Details Patient is a 59-year-old female came in today for three-month follow-up appointment Her chest pain and cough has improved there is no more wheezing after prednisone use She continued to have pain right side of chest radiating to front to back Her chest x-ray was within normal limit Reviewing her CT scan from September of this year I do see that patient have a fatty liver Talked about healthy diet, patient confirmed that when she avoid processed food and take out her pain gets better Explained to her that fatty liver flares up when she does not eat healthy diet If she stick to healthy diet her pain will improve and also losing weight. Patient was in emotional crisis last visit because of the depth of her family member I started her on alprazolam 0.25 mg to be taken once a day as needed she is feeling much better I have sent 30 more tablets with the patient and also her Ambien prescription is sent for next three-month Patient is to return in three-month follow-up appointment COUNT INCLUDES [facility] Medical History Asthma Elevated cholesterol GERD (gastroesophageal reflux disease) Vertigo Anxiety Depression HTN (hypertension) COVID-19 Surgical History Hx of cystoscopy H/O colonoscopy Hx of tubal ligation H/O shoulder surgery Hx of cholecystectomy Family History Mother Diabetes Sister Diabetes HTN (hypertension) Colon cancer Paternal Uncle Colon cancer Social History Household Members: Significant Other Housing: House Do you presently have visiting nurse 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 home 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) Alcohol intake: never Patient Tobacco Use Status: Never used Tobacco e-Cigarette/Vaping Use: Never Used Second Hand Smoke Exposure: No Substance Use Type: Marijuana service: No Current occupational status: disabled Cognitive needs: No Hearing needs: No Vision needs: No Female Reproductive History Menstrual Age of Menarche: 14 Questionnaire Thrive Questionnaire Date Thrive assessed: 03/23/24 I am a: Patient What is your living situation today?: I have a steady place to live Within the past 12 months, did the food you bought not last and you didn't have the money to get more?: I choose not to answer this question Within the past 12 months, did you worry whether your food would run out before you got money to buy more?: I choose not to answer this question Do you have trouble paying for medicines?: No Do you have trouble getting transportation to medical appointments?: No Do you have trouble paying your heating and electricity bill?: No Do you have trouble taking care of your child, family member or friend?: Yes Do you have trouble with day-to-day activities such as bathing, preparing meals, shopping, managing finances, etc.?: Yes Are you currently unemployed and looking for a job?: Yes Are you interested in more education?: No Please select the resources that you would like help with: None Currently or been in a relationship where the following occur: I choose not to answer THRIVE Score: 0 AUDIT C Alcohol Use Questionnaire (AUDIT-C) 1. How often do you have a drink containing alcohol?: Never 3. How often do you have six or more drinks on one occasion?: Never Total Score: 0 Score Reviewed/Action Taken: Yes MANUELA-7 AMB Questionnaire MANUELA-7 Date MANUELA - 7 assessed: 03/23/24 Source: Developed by Drs. Agustin Lucas, Katie Brennan, Christopher Cee and colleagues, with an educational jean pierre from [employer]. Review of Systems Const Denies chills and Denies fever(s) ENT Denies epistaxis and Denies nasal discharge Resp Denies chest congestion, Denies cough and Denies hemoptysis GI Denies diarrhea and Denies nausea Skin/Breast Denies rash Neuro Reports no additional complaints Psych Reports no additional complaints Endo Reports no additional complaints Physical exam (Primary Care) Vital Signs: Last Vital Signs Pulse 59 07/20/24 12:01 BP 126/78 07/20/24 12:01 Pulse Ox 96 07/20/24 12:01 Oxygen Delivery Method Room Air 07/20/24 12:01 BMI result Body Mass Index 43.8 Tobacco/Smoking Status: Tobacco use Status Tobacco use date assessed 07/20/24 07/20/24 12:05 Patient Tobacco Use Status Never used Tobacco 07/20/24 12:05 Tobacco use type 05/30/22 13:54 e-Cigarette/Vaping Use Never Used 07/20/24 12:05 Thrive Assessment: Date of Thrive Assessment Date Thrive assessed 03/23/24 07/20/24 12:05 Currently or been in a relationship where the following occur: I choose not to answer Const General: cooperative, comfortable and no acute distress Orientation/consciousness: patient oriented x3 HENMT Head: Yes normocephalic Eyes General: appearance normal, both eyes and all related structures Neck Neck: Yes supple Resp Effort & Inspection: normal respiratory effort, no cough and no stridor Cardio Rhythm: regular rhythm Heart sounds: S1 normal heart sound present and S2 normal heart sound present GI Abdomen image: 1. Site of pain Skin General skin exam: turgor normal Neuro General: patient oriented x3, tone normal and moves all extremities Extrem Right lower extremity: no edema Left lower extremity: no edema Coding Level of Care Code Est Pt Level 4 (96502) Diagnoses Anxiety, generalized F41.1 Difficulty sleeping G47.9 Right upper quadrant pain R10.11 Fatty liver K76.0 Assessment & Plan Assessment & Plan (1) Anxiety, generalized: Code(s): F41.1 - Generalized anxiety disorder Category: Medical (2) Difficulty sleeping: Code(s): G47.9 - Sleep disorder, unspecified Category: Medical (3) Right upper quadrant pain: Code(s): R10.11 - Right upper quadrant pain Category: Medical (4) Fatty liver: Code(s): K76.0 - Fatty (change of) liver, not elsewhere classified Category: Medical Plan Patient is a 59-year-old female came in today for three-month follow-up appointment Her chest pain and cough has improved there is no more wheezing after prednisone use She continued to have pain right side of chest radiating to front to back Her chest x-ray was within normal limit Reviewing her CT scan from September of this year I do see that patient have a fatty liver Talked about healthy diet, patient confirmed that when she avoid processed food and take out her pain gets better Explained to her that fatty liver flares up when she does not eat healthy diet If she stick to healthy diet her pain will improve and also losing weight. Patient was in emotional crisis last visit because of the depth of her family member I started her on alprazolam 0.25 mg to be taken once a day as needed she is feeling much better I have sent 30 more tablets with the patient and also her Ambien prescription is sent for next three-month Patient is to return in three-month follow-up appointment Medications: Refilled zolpidem 10 mg PO BEDTIME 30 tabs 2RF 30 days G47.9 - Sleep disorder, unspecified alprazolam 0.25 mg PO DAILY PRN 30 tabs 2RF anxiety 30 days alprazolam 0.25 mg PO DAILY 30 days PRN 30 tabs 0RF anxiety
== END 2024-07-20 14:37 | disposition home or self-care (01) ==
PROVIDERS: PCP Internal Medicine; Visit Provider Internal Medicine
DX: F41.1 Generalized anxiety disorder (principal); G47.9 Sleep disorder, unspecified; R10.11 Right upper quadrant pain; K76.0 Fatty (change of) liver, not elsewhere classified

== ENCOUNTER → 2024-07-20 11:55 | Outpatient (BNVA) | payer OTHER, SELFPAY | PROVIDERS: PCP Internal Medicine; Visit Provider Internal Medicine | DX: F41.1 Generalized anxiety disorder (principal); G47.9 Sleep disorder, unspecified; R10.11 Right upper quadrant pain; K76.0 Fatty (change of) liver, not elsewhere classified | CPT/HCPCS: 99212 ==

== ENCOUNTER 2024-08-15 15:18 | Outpatient (AMB) | payer OTHER, SELFPAY ==
[2024-08-15 15:26] VITALS: BP 134/70; PULSE 70; O2SAT 98; BMI 44.4
--- NOTE | 2024-08-15 15:26 | A.OFFVIS_ITS ---
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: Hot Air Furnace Installer And Repairer offered & declined Accompanied by: Self / Same As Patient Allergies No Known Allergies Allergy (Verified 08/15/24 15:31) Medication List - Last Reconciled 08/15/24 by Cori Gotti LPN acetaminophen ER (Tylenol Arthritis Pain) 650 mg PO Q12H PRN 90 days albuterol sulfate 90 mcg/actuation 2 puffs inhalation Q4-6H PRN alprazolam 0.25 mg PO DAILY PRN 30 days aspirin 81 mg PO DAILY 90 days lisinopril-hydrochlorothiazide 20-25 mg 1 tab PO DAILY 90 days meclizine 25 mg PO DAILY PRN 30 days naphazoline-pheniramine 0.025-0.3 % (Naphcon-A) 1 drp ophthalmic (eye) BID-QID PRN 30 days omeprazole 20 mg PO DAILY 90 days rosuvastatin 20 mg PO DAILY 90 days sertraline 200 mg (2 x 100 mg) PO DAILY [Shower chair with back As directed] zolpidem 10 mg PO BEDTIME 30 days HPI HPI wheezing, chest pain, sleep apnea: Details: Dania is a pleasant 59 year old female, never smoker, with underlying asthma, GERD, HTN , anxiety and depression. She was referred by PCP for pulmonary evaluation. She reports worsening control of asthma over the last year requiring multiple courses of prednisone. She is currently prescribed albuterol with suboptimal effect, using frequently. She continues to report chest tightness, dyspnea on exertion and wheezing. Denies cough. She reports asthma dx as an adult, never requiring intubations. She reports seasonal allergies, no recent allergy testing. She denies any pertinent family history. She denies any occupational exposures. She does endorse second hand smoke exposure. She also underwent home sleep study which revealed mild MILLIE and mild nocturnal hypoxemia, interested in starting CPAP therapy. She notes persistent daytime fatigue, nonre storative sleep and paroxsymal nocturnal dyspnea. [facility] Medical History (Updated 08/15/24 @ 16:18 by Ynes Stringer NP) Asthma Elevated cholesterol GERD (gastroesophageal reflux disease) Vertigo Anxiety Depression HTN (hypertension) COVID-19 Surgical History Hx of cystoscopy H/O colonoscopy Hx of tubal ligation H/O shoulder surgery Hx of cholecystectomy Family History Mother Diabetes Sister Diabetes HTN (hypertension) Colon cancer Paternal Uncle Colon cancer Social History Household Members: Significant Other Housing: House Do you presently have visiting nurse or other home services: Yes ([employer]) Alcohol intake: never Patient Tobacco Use Status: Never used Tobacco e-Cigarette/Vaping Use: Never Used Second Hand Smoke Exposure: No Substance Use Type: Marijuana service: No Current occupational status: disabled Cognitive needs: No Hearing needs: No Vision needs: No Female Reproductive History Menstrual Age of Menarche: 14 Review of Systems Const Denies chills, Denies excessive sweating, Denies fever(s), Denies headache(s) and Denies night sweats Eyes Denies dry eyes, Denies irritation and Denies itchy eyes ENT Reports Normal hearing present, Denies headache(s), Denies post nasal drip and Denies sore throat Card Denies chest pain, Denies chest pain at rest, Denies chest pain with activity, Denies claudication, Denies leg edema, Denies orthopnea and Denies paroxysmal nocturnal dyspnea Resp Denies chest congestion, Denies cough, Denies excessive phlegm production, Denies pain on inspiration, Denies pain with cough and Denies stridor Musc Denies myalgias Neuro Reports Normal hearing present and Denies headache(s) Endo Denies excessive sweating Abisai/Lymph Denies lymphadenopathy Aller/Immun Denies itchy eyes and Denies seasonal rhinorrhea Physical Exam Vital Signs: Last Vital Signs Pulse 70 08/15/24 15:26 BP 134/70 08/15/24 15:26 Pulse Ox 98 08/15/24 15:26 Oxygen Delivery Method Room Air 08/15/24 15:26 BMI result Body Mass Index 44.4 Const General: cooperative, healthy appearing, comfortable, no acute distress, well developed and alert Nutritional Appearance: obese Orientation/consciousness: patient oriented x3 Limitations: no limitations HEENT Head: Yes normal to inspection, Yes normocephalic and Yes atraumatic Ears: hearing grossly normal bilaterally and external ears normal Eyes General: appearance normal, both eyes and all related structures Eyelids: Yes eyelids normal Sclerae: sclerae normal EOM: EOMs intact bilaterally Neck Neck: Yes normal visual inspection and Yes no lymphadenopathy Lymphatic: no lymphadenopathy noted Chest Chest palpation & inspection: normal inspection of the chest Resp Effort & Inspection: normal respiratory effort, able to speak in complete sentences, no audible wheezes, no cough, no stridor, not tachypneic, no tripod positioning and no use of accessory muscles Auscultation: clear to auscultation bilaterally Cardio Jugular venous distension: no JVD Rate: regular rate Rhythm: regular rhythm Skin Other: warm, dry General skin exam: no rashes or lesions noted Neuro General: patient oriented x3 Cranial nerves: Yes Normal hearing present Cognition (Neuro): normal cognition Gait exam (Neuro): Normal gait present Extrem General: Yes normal to inspection, Yes capillary refill normal, Yes no clubbing, cyanosis or edema and Yes no pedal edema Psych Appearance: grossly normal and well kempt Speech and movement: Normal speech and movement present and Clear speech present Affect: normal affect Attitude: cooperative Thought process: Normal thought process present Thought content: Normal thought content present Insight: Good insight present (Psych) Judgement: Good judgement present (Psych) Assessment & Plan Assessment & Plan (1) Asthma: Code(s): J45.909 - Unspecified asthma, uncomplicated Category: Medical (2) Sleep apnea: Code(s): G47.30 - Sleep apnea, unspecified Category: Medical Qualifiers: Sleep apnea type: unspecified type Qualified Code(s): G47.30 - Sleep apnea, unspecified (3) Environmental allergies: Code(s): Z91.09 - Other allergy status, other than to drugs and biological substances Category: Medical Plan Dania's symptoms are likely related to poorly controlled asthma. Will empirically start Breo. Discussed importance of good oral hygiene to prevent thrush. Will send for PFT and RAST to assess for an allergic component. Recent CXR unremarkable, no need for further imaging at this time. Reviewed sleep study results with patient which revealed an AHI of ?9.6 with mild nocturnal hypoxemia, <88% for 3 minutes, lowest 78%. Since patient is quite symptomatic, will start CPAP therapy. Will send in prescription for APAP mode and pressure settings of 6-20 cm with close monitoring for compliance and benefits. Sleep hygiene education reviewed. She is aware if there are any issues with the mask or CPAP machine, she will call the office. All questions were answered and patient is in agreement of plan. Will follow up in 8 weeks. Orders: Orders Complete Blood Count Auto Diff Today Z. - Other allergy status, other than to drugs and biological substances PFT pulmonary function test Today J45.909 - Unspecified asthma, uncomplicated Immunoglobulin E Today Z. - Other allergy status, other than to drugs and biological substances Resp Allergy Profile Region I Today Z. - Other allergy status, other than to drugs and biological substances Medications: New fluticasone furoate-vilanterol 100-25 mcg/dose (Breo Ellipta) 1 inh inhalation DAILY 60 ea 6RF Coding Level of Care Code New Pt Level 4 (34078) Diagnoses Asthma J45.909 Sleep apnea, unspecified type G47.30 Sleep apnea type: unspecified type Environmental allergies Z.
== END 2024-08-15 15:55 | disposition home or self-care (01) ==
PROVIDERS: PCP Internal Medicine; Referring Provider Internal Medicine; Visit Provider Nurse Practitioner Family
DX: J45.909 Unspecified asthma, uncomplicated (principal); G47.30 Sleep apnea, unspecified; Z91.09 Other allergy status, other than to drugs and biological substances
CPT/HCPCS: 99204

== ENCOUNTER → 2024-08-15 15:18 | Outpatient (BNVA) | payer OTHER, SELFPAY | PROVIDERS: PCP Internal Medicine; Referring Provider Internal Medicine; Visit Provider Nurse Practitioner Family | DX: J45.909 Unspecified asthma, uncomplicated (principal); G47.30 Sleep apnea, unspecified; Z91.09 Other allergy status, other than to drugs and biological substances | CPT/HCPCS: 99202 ==

== ENCOUNTER 2024-09-22 13:55 | Outpatient (REF) | payer OTHER, SELFPAY ==
--- NOTE | 2024-09-22 13:59 | PFT_ITS ---
Indication: Asthma Spirometry [FEV1 to FVC is 86%; FEV1 2.34 L; FVC 2.72 L. No significant response to bronchodilators noted.] Lung Volumes [Following capacity 84% predicted; expiratory reserve volume 25% predicted] Diffusion Capacity [DLCO 92% predicted] Comparisons [none] Interpretation [No obstructive nor restrictive ventilatory defects identified. No significant response to bronchodilators noted. Lung volumes are low normal. She does have a decrease in the expiratory reserve volume secondary to likely an elevated BMI. Diffusion capacity is within normal limits. If asthma is new differential methacholine challenge may be helpful for assessing for hyperreactive airways disease.] BALDOMEROD
== END 2024-09-22 13:56 | disposition home or self-care (01) ==
LOC: HO.RESP 13:55
PROVIDERS: PCP Internal Medicine; Visit Provider Nurse Practitioner Family
DX: J45.909 Unspecified asthma, uncomplicated (principal)
CPT/HCPCS: 94010; 94640; 94727; 94729

== ENCOUNTER → 2024-09-22 13:59 | Outpatient (BNV) | payer OTHER, SELFPAY | PROVIDERS: PCP Internal Medicine; Visit Provider Hospitalist | DX: J45.909 Unspecified asthma, uncomplicated (principal) | CPT/HCPCS: 94060; 94727; 94729 ==

== ENCOUNTER 2024-09-30 08:32 | Outpatient (REF) | payer OTHER, SELFPAY ==
--- OUTSIDE RECORDS SUMMARY | 2024-09-30 09:30 | XMS_ITS | Clinical Summary ---
Author Organization [facility] ity Address [address] [place] [address] Care Team Providers Care Drug Discovery Informatics Specialist Name Role Phone Unavailable Primary Care Provider [...]
[2024-09-30 10:06] LABS: MANUAL DIFF FLAG NO
[2024-09-30 10:12] LABS: Basophils Percent Auto 0.6 % (0-2); Eosinophils Absolute Auto 0.1 X10*3/uL (0.0-0.4); Eosinophils Percent Auto 1.4 % (0-4); Hematocrit 39.4 % (37.0-47.0); Hemoglobin 13.1 g/dl (12.0-16.0); Imm Gran Abs Auto 0.01 X10*3/uL (0.00-0.03); Imm Gran Pct Auto 0.2 % (0.0-0.4); Lymphocytes Absolute Auto 1.6 X10*3/uL (1.2-4.9); Lymphocytes Percent Auto 33.6 % (20-40); Mean Corpuscular HGB Conc 33.2 g/dl (31.0-35.0); Mean Corpuscular Hemoglobin 30.2 pg (27.0-33.0); Mean Corpuscular Volume 90.8 fL (80.0-98.0); Mean Platelet Volume 10.2 fL (9.4-12.3); Monocytes Absolute Auto 0.7 X10*3/uL (0.1-1.2); Monocytes Percent Auto 13.3 % (2-11); Neutrophils Absolute Auto 2.5 x10*3/uL (2.0-8.3); Neutrophils Percent Auto 50.9 % (45-73); Platelet Count 214 X10*3/uL (160-400); Red Blood Count 4.34 X10*6/uL (4.20-5.50); Red Cell Distribution Width 12.9 % (11.0-16.0); White Blood Count 4.9 X10*3/uL (4.8-10.8)
[2024-09-30 10:38] LABS: Alanine Aminotransferase 45 U/L (0-31); Albumin Level 4.1 g/dL (3.5-5.0); Alkaline Phosphatase 77 U/L (39-117); Anion Gap 11 (12-20); Aspartate Amino Transferase 32 U/L (5-31); Bilirubin Total 0.2 mg/dL (0.0-1.0); Blood Urea Nitrogen 15 mg/dL (9-16); Calcium 9.5 mg/dL (8.4-10.2); Carbon Dioxide 25 mmol/L (22-29); Chloride 111 mmol/L (96-108); Cholesterol 210 mg/dL (<200); Estimated Glomerular Filt Rate > 60; Glucose Fasting 99 mg/dL (60-99); HDL Cholesterol 59 mg/dL (>40); LDL Cholesterol Calculated 123 mg/dL (<100); Potassium 4.3 mmol/L (3.3-5.1); Sodium 143 mmol/L (135-145); Total Protein 7.6 g/dL (6.5-8.0); Triglycerides 140 mg/dL (<150)
[2024-09-30 10:46] LABS: HIV AB/AG Nonreactive (Nonreactive); HIV Num 1 0.11 S/CO (0.00-0.99); ~Hepatitis B Surface Antibody REACTIVE (Nonreactive); ~Hepatitis C Antibody Nonreactive (Nonreactive)
[2024-09-30 11:26] LABS: Syphilis Screen Nonreactive (Nonreactive)
[2024-10-03 20:59] LABS: Herpes Simplex Type 2 IgG 5.21 index
== END 2024-09-30 08:33 | disposition home or self-care (01) ==
LOC: HO.HMGCLDS 08:32
PROVIDERS: PCP Internal Medicine; Visit Provider Internal Medicine
DX: I10 Essential (primary) hypertension (principal); F41.1 Generalized anxiety disorder; G47.9 Sleep disorder, unspecified; R10.13 Epigastric pain; E66.01 Morbid (severe) obesity due to excess calories; M19.90 Unspecified osteoarthritis, unspecified site; F33.41 Major depressive disorder, recurrent, in partial remission; Z91.09 Other allergy status, other than to drugs and biological substances; M75.00 Adhesive capsulitis of unspecified shoulder; Z11.3 Encounter for screening for infections with a predominantly sexual mode of transmission; B37.31 Acute candidiasis of vulva and vagina
CPT/HCPCS: 36415; 80053; 80061; 85025; 86695; 86696; 86706; 86780; 86803; 87389; 96127; 99212

== ENCOUNTER 2024-09-30 08:32 | Outpatient (AMB) | payer OTHER, SELFPAY ==
[2024-09-30 08:44] VITALS: BP 128/76; PULSE 65; RESP 16; O2SAT 95; BMI 45.2
--- NOTE | 2024-09-30 08:44 | A.OFFPC_ITS ---
Vital Signs 09/30/24 08:44 Height 5 ft 2 in Weight 247 lb BMI 45.2 BP 128/76 Blood Pressure Location Lt brachial Position Sitting Respiration 16 Pulse 65 Pulse Source Pulse Oximeter Pulse Oximetry (%) 95 Oxygen Delivery Method Room Air Intake Visit Reasons: 3M follow Up Allergies No Known Allergies Allergy (Verified 09/30/24 08:44) Medication List - Last Reconciled 09/30/24 by Kinjal Tavares MD acetaminophen ER (Tylenol Arthritis Pain) 650 mg PO Q12H PRN 90 days albuterol sulfate 90 mcg/actuation 2 puffs inhalation Q4-6H PRN alprazolam 0.25 mg PO DAILY PRN 30 days aspirin 81 mg PO DAILY 90 days fluticasone furoate-vilanterol 100-25 mcg/dose (Breo Ellipta) 1 inh inhalation DAILY lisinopril-hydrochlorothiazide 20-25 mg 1 tab PO DAILY 90 days meclizine 25 mg PO DAILY PRN 30 days naphazoline-pheniramine 0.025-0.3 % (Naphcon-A) 1 drp ophthalmic (eye) BID-QID PRN 30 days omeprazole 20 mg PO DAILY 90 days rosuvastatin 20 mg PO DAILY 90 days sertraline 200 mg (2 x 100 mg) PO DAILY [Shower chair with back As directed] zolpidem 10 mg PO BEDTIME 30 days Tobacco use date assessed: 09/30/24 Dental Screening Dental Screen Date: 08/10/24 Did you have a dental visit in the last 12 months?: No Did you have a dental problem in the last 6 months where you did not have access to dental care?: No Was dental information given to patient?: Patient has dentist HPI 3M follow Up HPI Details Three-month follow-up appointment for medication refill - The patient is a 59-year-old female sh e has been having vaginal itching for the past few days she has tried fssn-ksz-qniqykv creams which has not helped. She is requesting Diflucan tablets which I have sent for her - She manages Chronic Obstructive Pulmon gaetano Disease by using a breathing machine specifically at night with no acute symptoms present. Patient is established with regulatory submissions specialist Essential Hypertension is controlled with lisinopril and hydrochlorothiazide. - Allergic Conjunctivitis persists with itchy eyes, treated with medicated drops. Insomnia is effectively managed with zolpidem. Hyperlipidemia is under control through rosuvastatin, Gastroesophageal Reflux Disease remains asymptomatic with omeprazole intervention. - The patient requested comprehensive se xually transmitted infection testing, including HIV and hepatitis, prompted by entering a new relationship. - No episodes of dizziness were noted, a nd the patient is off meclizine. She take alprazolam for anxiety and restless legs syndrome And zolpidem to sleep at night Problem List - Essential Hypertension - Chronic Obstructive Pulmonary Disease (COPD) - Allergic Conjunctivitis - Insomnia - Hyperlipidemia - Gastroesophageal Reflux Disease (GERD) - Yeast infection - Major Depressive Disorder - insomnia - panic attacks Patient Instructions - Take the prescribed tablet for yeast i nfection as discussed. - Continue using the breathing machine a t night for shortness a breath as needed and follow up with project management it specialist - Utilize prescribed eye drops for aller gic conjunctivitis. - Maintain current medication regimen fo r hypertension, insomnia, hyperlipidemia, and GERD. - Schedule a blood fasting - Follow all protocols and recommendatio ns for sexually transmitted infection testing. - Return for blood pressure monitoring a nd general follow-up as discussed. In three-month Review of Systems. - General: No fever no chills - Neurological: No headaches no dizziness - Ear nose throat: No sore throat no hearing difficulty no ear pain - Cardiovascular: No syncope, no chest pain, no palpitations - Gastrointestinal: No nausea vomiting or diarrhea - Endocrine: No polyuria polydipsia no heat intolerance - Genitourinary: No dysuria , no blood in urine Physical Exam General: No acute distress HEENT: Itchy eyes Neck: Supple Respiratory system: Able to talk in full sentences, no audible wheeze cardiovascular: S1-S2 regular in rate and rhythm Gastrointestinal: No pain Extremities: No new findings 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: Alert awake oriented x3 motor sensory intact Skin: Itchy, normal turgor PFSH Medical History Asthma Elevated cholesterol GERD (gastroesophageal reflux disease) Vertigo Anxiety Depression HTN (hypertension) COVID-19 Surgical History Hx of cystoscopy H/O colonoscopy Hx of tubal ligation H/O shoulder surgery Hx of cholecystectomy Family History Mother Diabetes Sister Diabetes HTN (hypertension) Colon cancer Paternal Uncle Colon cancer Social History Household Members: Significant Other Housing: House Do you presently have visiting nurse or other home services: 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 41525 - PHQ-9 Billing: Patient declined-do not bill Source: Developed by Drs. Agustin Lucas, Katie Brennan, Christopher Cee and colleagues, with an educational jean pierre from [employer]. Thrive Questionnaire Date Thrive assessed: 09/30/24 I am a: Patient What is your living situation today?: I choose not to answer this question Within the past 12 months, did the food you bought not last and you didn't have the money to get more?: I choose not to answer this question Within the past 12 months, did you worry whether your food would run out before you got money to buy more?: I choose not to answer this question Do you have trouble paying for medicines?: I choose not to answer this question Do you have trouble getting transportation to medical appointments?: I choose not to answer this question Do you have trouble paying your heating and electricity bill?: I choose not to answer this question Do you have trouble taking care of your child, family member or friend?: I choose not to answer this question Do you have trouble with day-to-day activities such as bathing, preparing meals, shopping, managing finances, etc.?: I choose not to answer this question Are you currently unemployed and looking for a job?: I choose not to answer this question Are you interested in more education?: I choose not to answer this question Please select the resources that you would like help with: None Currently or been in a relationship where the following occur: I choose not to answer THRIVE Score: 0 AUDIT C Alcohol Use Questionnaire (AUDIT-C) 1. How often do you have a drink containing alcohol?: Never 3. How often do you have six or more drinks on one occasion?: Never Total Score: 0 Score Reviewed/Action Taken: Yes MANUELA-7 AMB Questionnaire MANUELA-7 Date MANUELA - 7 assessed: 09/30/24 Feeling nervous, anxious, or on edge: 0 = Not at all Not being able to stop or control worryin = Not at all Worrying too much about different things: 0 = Not at all Trouble relaxin = Not at all Being so restless that it is hard to sit still: 0 = Not at all Becoming easily annoyed or irritable: 0 = Not at all Feeling afraid as if something awful might happen: 0 = Not at all Total MANUELA-7 score (0-4 normal; 5-9 mild; 10-14 moderate; 15-21 severe): 0 Source: Developed by Drs. Agustin Lucas, Katie Brennan, Christopher Cee and colleagues, with an educational jean pierre from [employer]. MANUELA-7 Assessment Billing MANUELA-7 Assessment Tool: MANUELA-7 Assessment 67344 Physical exam (Primary Care) Vital Signs: Last Vital Signs Pulse 65 09/30/24 08:44 Resp 16 09/30/24 08:44 BP 128/76 09/30/24 08:44 Pulse Ox 95 09/30/24 08:44 Oxygen Delivery Method Room Air 09/30/24 08:44 BMI result Body Mass Index 45.2 Tobacco/Smoking Status: Tobacco use Status Tobacco use date assessed 09/30/24 09/30/24 08:46 Patient Tobacco Use Status Never used Tobacco 09/30/24 08:46 Tobacco use type 05/30/22 13:54 e-Cigarette/Vaping Use Never Used 09/30/24 08:46 Thrive Assessment: Date of Thrive Assessment Date Thrive assessed 09/30/24 09/30/24 08:53 Currently or been in a relationship where the following occur: I choose not to answer Coding Level of Care Code Est Pt Level 4 (00928) Complex EM visit Add On G2211 Diagnoses Hypertension, essential I10 Anxiety, generalized F41.1 Difficulty sleeping G47.9 Dyspepsia R10.13 Morbid obesity due to excess calories E66.01 Arthrosis M19.90 Recurrent major depressive disorder, in partial remission F33.41 Active/Remission status: in partial remission Environmental allergies Z91.09 Adhesive capsulitis of left shoulder M75.02 Laterality: left Screening for STD (sexually transmitted disease) Z11.3 Vaginal yeast infection B37.31 Additional Codes MANUELA-7 Assessment Billing - MANUELA-7 Assessment Tool: MANUELA-7 Assessment 14352 ([id number]) Assessment & Plan Assessment & Plan (1) Hypertension, essential: Code(s): I10 - Essential (primary) hypertension Category: Medical (2) Anxiety, generalized: Code(s): F41.1 - Generalized anxiety disorder Category: Medical (3) Difficulty sleeping: Code(s): G47.9 - Sleep disorder, unspecified Category: Medical (4) Dyspepsia: Code(s): R10.13 - Epigastric pain Category: Medical (5) Morbid obesity due to excess calories: Code(s): E66.01 - Morbid (severe) obesity due to excess calories Category: Medical (6) Arthrosis: Code(s): M19.90 - Unspecified osteoarthritis, unspecified site Category: Medical (7) Major depression, recurrent: Code(s): F33.9 - Major depressive disorder, recurrent, unspecified Category: Medical Qualifiers: Active/Remission status: in partial remission Qualified Code(s): F33.41 - Major depressive disorder, recurrent, in partial remission (8) Environmental allergies: Code(s): Z91.09 - Other allergy status, other than to drugs and biological substances Category: Medical (9) Frozen shoulder syndrome: Comment: Left Code(s): M75.00 - Adhesive capsulitis of unspecified shoulder Category: Medical Qualifiers: Laterality: left Qualified Code(s): M75.02 - Adhesive capsulitis of left shoulder (10) Screening for STD (sexually transmitted disease): Code(s): Z11.3 - Encounter for screening for infections with a predominantly sexual mode of transmission Category: Medical (11) Vaginal yeast infection: Code(s): B37.31 - Acute candidiasis of vulva and vagina Category: Medical Plan Three-month follow-up appointment for medication refill - The patient is a 59-year-old female she has been having vaginal itching for the past few days she has tried tzdr-lwl-nqahnus creams which has not helped. She is requesting Diflucan tablets which I have sent for her - She manages Chronic Obstructive Pulmonary Disease by using a breathing machine specifically at night with no acute symptoms present. Patient is established with regulatory submissions specialist Essential Hypertension is controlled with lisinopril and hydrochlorothiazide. - Allergic Conjunctivitis persists with itchy eyes, treated with medicated drops. Insomnia is effectively managed with zolpidem. Hyperlipidemia is under control through rosuvastatin, Gastroesophageal Reflux Disease remains asymptomatic with omeprazole intervention. - The patient requested comprehensive sexually transmitted infection testing, including HIV and hepatitis, prompted by entering a new relationship. - No episodes of dizziness were noted, and the patient is off meclizine. She take alprazolam for anxiety and restless legs syndrome And zolpidem to sleep at night Problem List - Essential Hypertension - Chronic Obstructive Pulmonary Disease (COPD) - Allergic Conjunctivitis - Insomnia - Hyperlipidemia - Gastroesophageal Reflux Disease (GERD) - Yeast infection - Major Depressive Disorder - insomnia - panic attacks Patient Instructions - Take the prescribed tablet for yeast infection as discussed. - Continue using the breathing machine at night for shortness a breath as needed and follow up with project management it specialist - Utilize prescribed eye drops for allergic conjunctivitis. - Maintain current medication regimen for hypertension, insomnia, hyperlipidemia, and GERD. - Schedule a blood fasting - Follow all protocols and recommendations for sexually transmitted infection testing. - Return for blood pressure monitoring and general follow-up as discussed. In three-month Orders: Orders Lipid Panel Today B37.31 - Acute candidiasis of vulva and vagina, E66.01 - Morbid (severe) obesity due to excess calories, F33.41 - Major depressive disorder, recurrent, in partial remission, F41.1 - Generalized anxiety disorder, G47.9 - Sleep disorder, unspecified, I10 - Essential (primary) hypertension, M19.90 - Unspecified osteoarthritis, unspecified site, M75.00 - Adhesive capsulitis of unspecified shoulder, R10.13 - Epigastric pain, Z11.3 - Encounter for screening for infections with a predominantly sexual mode of transmission, Z91.09 - Other allergy status, other than to drugs and biological substances HIV Ab/Ag Today B37.31 - Acute candidiasis of vulva and vagina, E66.01 - Morbid (severe) obesity due to excess calories, F33.41 - Major depressive disorder, recurrent, in partial remission, F41.1 - Generalized anxiety disorder, G47.9 - Sleep disorder, unspecified, I10 - Essential (primary) hypertension, M19.90 - Unspecified osteoarthritis, unspecified site, M75.00 - Adhesive capsulitis of unspecified shoulder, R10.13 - Epigastric pain, Z11.3 - Encounter for screening for infections with a predominantly sexual mode of transmission, Z91.09 - Other allergy status, other than to drugs and biological substances Complete Blood Count Auto Diff Today B37.31 - Acute candidiasis of vulva and vagina, E66.01 - Morbid (severe) obesity due to excess calories, F33.41 - Major depressive disorder, recurrent, in partial remission, F41.1 - Generalized anxiety disorder, G47.9 - Sleep disorder, unspecified, I10 - Essential (primary) hypertension, M19.90 - Unspecified osteoarthritis, unspecified site, M75.00 - Adhesive capsulitis of unspecified shoulder, R10.13 - Epigastric pain, Z11.3 - Encounter for screening for infections with a predominantly sexual mode of transmission, Z91.09 - Other allergy status, other than to drugs and biological substances Comprehensive [place]. Panel Fast Today B37.31 - Acute candidiasis of vulva and vagina, E66.01 - Morbid (severe) obesity due to excess calories, F33.41 - Major depressive disorder, recurrent, in partial remission, F41.1 - Generalized a nxiety disorder, G47.9 - Sleep disorder, unspecified, I10 - Essential (primary) hypertension, M19.90 - Unspecified osteoarthritis, unspecified site, M75.00 - Adhesive capsulitis of unspecified shoulder, R10.13 - Epigastric pain, Z11.3 - Encounter for screening for infections with a predominantly sexual mode of transmission, Z91.09 - Other allergy status, other than to drugs and biological substances Herpes Simplex Virus Ab IgG Today B37.31 - Acute candidiasis of vulva and vagina, E66.01 - Morbid (severe) obesity due to excess calories, F33.41 - Major depressive disorder, recurrent, in partial remission, F41.1 - Generalized anxiety disorder, G47.9 - Sleep disorder, unspecified, I10 - Essential (primary) hypertension, M19.90 - Unspecified osteoarthritis, unspecified site, M75.00 - Adhesive capsulitis of unspecified shoulder, R10.13 - Epigastric pain, Z11.3 - Encounter for screening for infections with a predominantly sexual mode of transmission, Z91.09 - Other allergy status, other than to drugs and biological substances Hepatitis C Antibody Today B37.31 - Acute candidiasis of vulva and vagina, E66.01 - Morbid (severe) obesity due to excess calories, F33.41 - Major depressive disorder, recurrent, in partial remission, F41.1 - Generalized anxiety disorder, G47.9 - Sleep disorder, unspecified, I10 - Essential (primary) hypertension, M19.90 - Unspecified osteoarthritis, unspecified site, M75.00 - Adhesive capsulitis of unspecified shoulder, R10.13 - Epigastric pain, Z11.3 - Encounter for screening for infections with a predominantly sexual mode of transmission, Z91.09 - Other allergy status, other than to drugs and biological substances Syphilis Screen Today B37.31 - Acute candidiasis of vulva and vagina, E66.01 - Morbid (severe) obesity due to excess calories, F33.41 - Major depressive disorder, recurrent, in partial remission, F41.1 - Generalized anxiety disorder, G47.9 - Sleep disorder, unspecified, I10 - Essential (primary) hypertension, M19.90 - Unspecified osteoarthritis, unspecified site, M75.00 - Adhesive capsulitis of unspecified shoulder, R10.13 - Epigastric pain, Z11.3 - Encounter for screening for infections with a predominantly sexual mode of transmission, Z91.09 - Other allergy status, other than to drugs and biological substances Hepatitis B Surface Antibody Today B37.31 - Acute candidiasis of vulva and vagina, E66.01 - Morbid (severe) obesity due to excess calories, F33.41 - Major depressive disorder, recurrent, in partial remission, F41.1 - Generalized anxiety disorder, G47.9 - Sleep disorder, unspecified, I10 - Essential (primary) hypertension, M19.90 - Unspecified osteoarthritis, unspecified site, M75.00 - Adhesive capsulitis of unspecified shoulder, R10.13 - Epigastric pain, Z11.3 - Encounter for screening for infections with a predominantly sexual mode of transmission, Z91.09 - Other allergy status, other than to drugs and biological substances Medications: New fluconazole may repeat second dose 72 hrs after first dose if symptoms persist 150 mg PO Q3D 2 tabs 0RF 2 doses Refilled zolpidem 10 mg PO BEDTIME 30 tabs 2RF 30 days G47.9 - Sleep disorder, unspecified alprazolam 0.25 mg PO DAILY PRN 30 tabs 2RF anxiety 30 days Discontinued meclizine Discontinued Reason: Doctor's Order 25 mg PO DAILY 30 days PRN 30 tabs 0RF motion sickness
--- OUTSIDE RECORDS SUMMARY | 2024-09-30 08:46 | XMS_ITS | Clinical Summary ---
Author Organization [facility] ity Address [address] [place] [address] Care Team Providers Care Supervisor Lead Refinery Name Role Phone Unavailable Primary Care Provider Unavailabl e Social History Tobacco Use Types Packs/Day Years Used Date Smoking Tobacco: Never Assessed Comments Unknown Sex and Gender Information Value Date Recorded Sex Assigned at Not on file Legal Sex Female 4:44 PM EDT Gender Identity Not on file Sexual Orientation Not on file Plan of Treatment Health Maintenance Due Date Last Done Comments Breast Cancer Screening 1966 DTaP,Tdap,and Td Vaccines (1 - Tdap) 1985 Hepatitis B Vaccines (1 of 3 - 19+ 3-dose series) 1985 Cervical Cancer Screening: P ap Smear 1987 Pneumococcal Vaccine: 50+ Ye ars (1 of 1 - PCV) 01/07/2016 Zoster Vaccines (1 of 2) 01/07/2016 Colorectal Cancer Screening: Colonoscopy 03/11/2024 Depression Screening 03/11/2024 HIV Screening 03/11/2024 Hepatitis C Screening 03/11/2024 Social Influencers of Health Screening 03/11/2024 COVID-19 Vaccine ( - 2023-2 5 season) 2024 Influenza Vaccine (#1) 2024 HIB Vaccines Aged Out No longer eligi ble based on patient's age to complete this topic HPV Vaccines Aged Out No longer eligi ble based on patient's age to complete this topic Hepatitis A Vaccines Aged Out No long er eligible based on patient's age to complete this topic IPV Vaccines Aged Out No longer eligi ble based on patient's age to complete this topic MMR Vaccines Aged Out No longer eligi ble based on patient's age to complete this topic Meningococcal ACWY Vaccine Aged Out N o longer eligible based on patient's age to complete this topic Meningococcal B Vacine Aged Out No lo nger eligible based on patient's age to complete this topic Pneumococcal Vaccine: Pediat rics (0 to 5 Years) and At-Risk Patients (6 to 64 Years) Aged Out No longer eligible b ased on patient's age to complete this topic RSV Immunization Patients Un mallory 20 months Aged Out No longer eligible b ased on patient's age to complete this topic Varicella Vaccines Aged Out No longer eligible based on patient's age to complete this topic
== END 2024-09-30 09:05 | disposition home or self-care (01) ==
PROVIDERS: PCP Internal Medicine; Visit Provider Internal Medicine
DX: I10 Essential (primary) hypertension (principal); F33.41 Major depressive disorder, recurrent, in partial remission; E66.01 Morbid (severe) obesity due to excess calories; Z68.42 Body mass index [BMI] 45.0-49.9, adult; F41.1 Generalized anxiety disorder; G47.9 Sleep disorder, unspecified; R10.13 Epigastric pain; M19.90 Unspecified osteoarthritis, unspecified site; Z91.09 Other allergy status, other than to drugs and biological substances; M75.02 Adhesive capsulitis of left shoulder; Z11.3 Encounter for screening for infections with a predominantly sexual mode of transmission; B37.31 Acute candidiasis of vulva and vagina

== ENCOUNTER 2024-10-31 12:30 | Outpatient (AMB) | payer OTHER, SELFPAY ==
--- NOTE | 2024-10-31 12:54 | A.OFFVIS_ITS ---
Vital Signs 10/31/24 12:55 Height 5 ft 2 in Weight 246 lb 14.684 oz BMI 45.2 Pulse 88 Pulse Source Pulse Oximeter Pulse Oximetry (%) 98 Oxygen Delivery Method Room Air Intake Visit Reasons: asthma Program Administrator Required: No Payable Representative: Payable Representative offered & declined Accompanied by: Self / Same As Patient Allergies No Known Allergies Allergy (Verified 10/31/24 12:59) Medication List - Last Reconciled 10/31/24 by Cori Gotti LPN acetaminophen ER (Tylenol Arthritis Pain) 650 mg PO Q12H PRN 90 days albuterol sulfate 90 mcg/actuation 2 puffs inhalation Q4-6H PRN alprazolam 0.25 mg PO DAILY PRN 30 days aspirin 81 mg PO DAILY 90 days fluconazole 150 mg PO Q3D 2 doses fluticasone furoate-vilanterol 100-25 mcg/dose (Breo Ellipta) 1 inh inhalation DAILY lisinopril-hydrochlorothiazide 20-25 mg 1 tab PO DAILY 90 days naphazoline-pheniramine 0.025-0.3 % (Naphcon-A) 1 drp ophthalmic (eye) BID-QID PRN 30 days omeprazole 20 mg PO DAILY 90 days rosuvastatin 20 mg PO DAILY 90 days sertraline 200 mg (2 x 100 mg) PO DAILY [Shower chair with back As directed] zolpidem 10 mg PO BEDTIME 30 days HPI HPI asthma: Details: aDnia is a pleasant 59 year old female, never smoker, with underlying asthma, GERD, HTN , mild MILLIE, anxiety and depression. At the last visit she was started on Breo for persistent chest tightness, dyspnea on exertion and wheezing, using albuterol MDI frequently. Denies cough. She reports significant improvement in symptoms, only requiring albuterol MDI 1-2 times per week. She underwent home sleep study which revealed mild MILLIE an AHI of ?9.6 with mild nocturnal hypoxemia, <88% for 3 minutes, lowest 78%. Since patient was symptomatic she was started on CPAP therapy, APAP mode and pressure settings of 6-20 cmH2O. Today she presents to review compliance report and PFT results. Orders were placed at the last visit for allergy testing however patient has yet to obtain. 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) Alcohol intake: never Patient Tobacco Use Status: Never used Tobacco e-Cigarette/Vaping Use: Never Used Second Hand Smoke Exposure: No Substance Use Type: Marijuana service: No Current occupational status: disabled Cognitive needs: No Hearing needs: No Vision needs: No Female Reproductive History Menstrual Age of Menarche: 14 Review of Systems Const Denies chills, Denies excessive sweating, Denies fever(s), Denies headache(s) and Denies night sweats Eyes Denies dry eyes, Denies irritation and Denies itchy eyes ENT Reports Normal hearing present, Denies headache(s), Denies post nasal drip and Denies sore throat Card Denies chest pain, Denies chest pain at rest, Denies chest pain with activity, Denies claudication, Denies leg edema, Denies orthopnea and Denies paroxysmal nocturnal dyspnea Resp Denies chest congestion, Denies cough, Denies excessive phlegm production, Denies pain on inspiration, Denies pain with cough and Denies stridor Musc Denies myalgias Neuro Reports Normal hearing present and Denies headache(s) Endo Denies excessive sweating Abisai/Lymph Denies lymphadenopathy Aller/Immun Denies itchy eyes and Denies seasonal rhinorrhea Physical Exam Vital Signs: Last Vital Signs Pulse 88 10/31/24 12:55 Pulse Ox 98 10/31/24 12:55 Oxygen Delivery Method Room Air 10/31/24 12:55 BMI result Body Mass Index 45.2 Const General: cooperative, healthy appearing, comfortable, no acute distress, well developed and alert Nutritional Appearance: obese Orientation/consciousness: patient oriented x3 Limitations: no limitations HEENT Head: Yes normal to inspection, Yes normocephalic and Yes atraumatic Ears: hearing grossly normal bilaterally and external ears normal Eyes General: appearance normal, both eyes and all related structures Eyelids: Yes eyelids normal Sclerae: sclerae normal EOM: EOMs intact bilaterally Neck Neck: Yes normal visual inspection and Yes no lymphadenopathy Lymphatic: no lymphadenopathy noted Chest Chest palpation & inspection: normal inspection of the chest Resp Effort & Inspection: normal respiratory effort, able to speak in complete sentences, no audible wheezes, no cough, no stridor, not tachypneic, no tripod positioning and no use of accessory muscles Auscultation: clear to auscultation bilaterally Cardio Jugular venous distension: no JVD Rate: regular rate Rhythm: regular rhythm Skin Other: warm, dry General skin exam: no rashes or lesions noted Neuro General: patient oriented x3 Cranial nerves: Yes Normal hearing present Cognition (Neuro): normal cognition Gait exam (Neuro): Normal gait present Extrem General: Yes normal to inspection, Yes capillary refill normal, Yes no clubbing, cyanosis or edema and Yes no pedal edema Psych Appearance: grossly normal and well kempt Speech and movement: Normal speech and movement present and Clear speech present Affect: normal affect Attitude: cooperative Thought process: Normal thought process present Thought content: Normal thought content present Insight: Good insight present (Psych) Judgement: Good judgement present (Psych) Assessment & Plan Assessment & Plan (1) Asthma: Code(s): J45.909 - Unspecified asthma, uncomplicated Category: Medical (2) Sleep apnea: Code(s): G47.30 - Sleep apnea, unspecified Category: Medical Qualifiers: Sleep apnea type: unspecified type Qualified Code(s): G47.30 - Sleep apnea, unspecified (3) Environmental allergies: Code(s): Z91.09 - Other allergy status, other than to drugs and biological substances Category: Medical Plan Reviewed PFT which revealed no obstructive nor restrictive ventilatory defects identified. No significant response to bronchodilators noted, except in small to medium airways. Lung volumes are low normal. She does have a decrease in the expiratory reserve volume secondary to likely an elevated BMI. Diffusion capacity is within normal limits. At this time, patient well controlled on Breo, advised to continue. She is aware there are orders for allergy testing however will defer at this time. Reviewed compliance report which revealed average AHI 1.1 with minimal leaks, she only recently received machine, so has yet to meet average compliance of >4 hours. Unfortunately, she has been unable to tolerate and is not interested in trialing different masks for better comfort. She will call DME to discontinue therapy. We discussed ways to minimize MILLIE including weight loss and positional therapy. All questions were answered and patient is in agreement of plan. Will follow up in three months or sooner if needed. Coding Level of Care Code Est Pt Level 4 (58925) Diagnoses Asthma J45.909 Sleep apnea, unspecified type G47.30 Sleep apnea type: unspecified type Environmental allergies Z91.09
[2024-10-31 12:55] VITALS: PULSE 88; O2SAT 98; BMI 45.2
== END 2024-10-31 13:07 | disposition home or self-care (01) ==
LOC: HO.HPS 12:31
PROVIDERS: PCP Internal Medicine; Visit Provider Nurse Practitioner Family
DX: J45.909 Unspecified asthma, uncomplicated (principal); G47.30 Sleep apnea, unspecified; Z91.09 Other allergy status, other than to drugs and biological substances
CPT/HCPCS: 99214

== ENCOUNTER → 2024-10-31 12:30 | Outpatient (BNVA) | payer OTHER, SELFPAY | PROVIDERS: PCP Internal Medicine; Visit Provider Nurse Practitioner Family | DX: J45.909 Unspecified asthma, uncomplicated (principal); G47.30 Sleep apnea, unspecified; Z91.09 Other allergy status, other than to drugs and biological substances | CPT/HCPCS: 99212 ==

== ENCOUNTER 2024-12-05 13:38 | Outpatient (AMB) | payer OTHER, SELFPAY ==
--- NOTE | 2024-12-05 13:40 | A.OFFVIS_ITS ---
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3 % (Naphcon-A) 1 drp ophthalmic (eye) BID-QID PRN 30 days omeprazole 20 mg PO DAILY 90 days rosuvastatin 20 mg PO DAILY 90 days sertraline 200 mg (2 x 100 mg) PO DAILY [Shower chair with back As directed] zolpidem 10 mg PO BEDTIME 30 days Is last menstrual period known: No Post menopausal: Yes Patient : No HPI HPI 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 She is slightly worried about of lab test that her primary doctor Dr. Tavares did for her a couple of months ago. She had requested full STD testing at a visit because she had had sex with a friend who she has known for a while and she just wanted to be sure so amidst the panel of testing was a blood test for herpes that came back positive and this has her upset and worried. She has never had an outbreak or lesions that she can recall. she has had multiple partners in her lifetime, she was concerned though because her is in [facility] and if this is a new thing this is worrisome for her. Not having any other stamp mounter concerns she is up-to-date on her mammogram. Her health is okay otherwise she does have high blood pressure and she is working on that. 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) Alcohol intake: never Patient Tobacco Use Status: Never used Tobacco e-Cigarette/Vaping Use: Never Used Second Hand Smoke Exposure: No Substance Use Type: Marijuana service: No Current occupational status: disabled Cognitive needs: No Hearing needs: No Vision needs: No Female Reproductive History Menstrual Age of Menarche: 14 control method: none Total pregnancies: 5 Full term: 4 Ab spontaneous: 1 Date of last pap smear: 04/30/21 (negative pap smear, negative hpv ) History of abnormal pap smear: No Date of Mammogram: 05/31/24 (bi rad 1) Physical Exam Vital Signs: Last Vital Signs BP 126/76 12/05/24 13:49 BMI result Body Mass Index 44.3 Const General: healthy appearing, comfortable, no acute distress, well developed and alert Nutritional Appearance: average body habitus Orientation/consciousness: patient oriented x3 Limitations: no limitations HEENT Head: Yes normocephalic Neck Neck: Yes normal visual inspection Chest Chest palpation & inspection: normal inspection of the chest Breast/axilla inspection: normal inspection of the breasts and normal inspection of the axillae Breast/axilla palpation: normal palpation of the breasts and normal palpation of the axillae Resp Effort & Inspection: normal respiratory effort GI Inspection: Yes normal to inspection, No Abdominal wall edema and No distended Palpation (GI): Soft to palpation and nontender Other: External exam within normal limits no suspicious lesions seen whatsoever vagina pink and moist normal-appearing scant white discharge cervix multiparous long thick closed mobile nontender uterus midposition to anteverted mobile nontender no abnormalities seen or palpated. Good tone with Kegel. General: Yes bladder normal to palpation External Female Exam: normal external appearance and normal appearance of the urethra Speculum Exam - Vagina: normal appearance of the vagina, normal palpation and normal vaginal discharge Speculum Exam - Cervix: normal appearance of the cervix, normal palpation and nontender Bimanual exam- vagina & uterus: normal bimanual exam, normal palpation, uterine size normal, bladder normal to palpation, consistency normal, normal palpation, uterine mobility normal, uterine shape normal, No Cervical tenderness present, non-tender and no cervical motion tenderness Bimanual Exam- Adnexa, other: normal adnexae, no masses, normal and No adnexal tenderness Neuro General: patient oriented x3 Results Reviewed Results Reviewed: Name: Dania Rizzo Age/Sex: 56/F Attending: Rylee Hopper CNM : 1965 Submitted by: Rylee Hopper CNM Copies to: Kinjal Tavares MD MR #: [id number] Status: DEP REF Collected: 05/01/21 Location: .LAB Received: 05/02/21 Interpretation Satisfactory for evaluation. Negative for intraepithelial lesion or malignancy. HPV mRNA E6/E7: NOT DETECTED This assay detects E6/E7 viral messenger RNA (mRNA) from 14 high-risk HPV types (16, 18, 31, 33, 35, 39, 45, 51, 52, 56, 58, 59, 66, 68) HPV testing performed by [facility], [place], [place]. See reference laboratory portion of the EMR for entire report. Clinical Information LMP: 2 Months ago Previous PAP test: 5 yrs ago, WNL Material Received ThinPrep- Cervical Copies To Kinjal Tavares MD [address] [place] [id number] [place],[address] [place] [address] Electronically Signed By: Brenda Avila 05/13/21 1558 The Pap Test is a screening procedure with the inherent possibility of both false negative and false positive results. Results should be interpreted in the context of historic and current clinical findings. Reliability of the Pap Test is enhanced by performing the test on a regular repetitive basis. Patient: Olvin Page 1 of 1 Name: Dania Rizzo Age/Sex: 59/F : 1965 Unit#: [id number] Attend Dr: Kinjal Tavares MD Re09/30/24 Status: DEP REF Location: [facility] Disch: SPEC : [id number] ALANA: 09/30/24 STATUS: COMP REQ : [id number] RECD: 09/30/[address]: Kinjal Tavares MD COMP: 09/30/24 ENTERED: 09/30/[address]: ORDERED: Syphil Scrn Test Result Flag Reference Syphilis TP EIA Nonreactive Nonreactive mai: Dania Rizzo Age/Sex: 59/F : 1965 Unit#: [id number] Attend Dr: Kinjal Tavares MD Re09/30/24 Status: DEP REF Location: [facility] Disch: SPEC : [id number] ALANA: 09/30/24 STATUS: COMP REQ : [id number] RECD: 09/30/[address]: Kinjal Tavares MD COMP: 10/03/24 ENTERED: 09/30/[address]: ORDERED: Herpes Simp IgG Test Result Flag Reference HSV Type 1 IgG 44.70 H index HSV Type 2 IgG 5.21 H index Index Interpretation ----- <0.90 Negative 0.90-1.09 Equivocal >1.09 Positive This assay utilizes recombinant type-specific antigens to differentiate HSV-1 from HSV-2 infections. A positive result cannot distinguish between recent and past infection. If recent HSV infection is suspected but the results are negative or equivocal, the assay should be repeated in 4-6 weeks. The performance characteristics of the assay have not been established for pediatric populations, immunocompromised patients, or screening. For additional information, please refer to http://education.Zeto/faq/MZF728 (This link is being provided for informational/ educational purposes only.) THIS TEST WAS PERFORMED AT: [facility] [address] [place] [id number] MARCUS LUCAS MD - NTERED: 09/30/24 [facility] : ORDERED: Anti-HBS, Anti-HCV, HIV Ab/Ag Test Result Flag Reference Anti-HBS REACTIVE Nonreactive REACTIVE: > 11.99 mIU/mL Anti-HCV Nonreactive Nonreactive Antibodies to HCV not detected; does not exclude early acute HCV infection. HIV AB/AG Nonreactive Nonreactive HIV-1 p24 Ag and/or HIV-1/HIV-2 Ab not detected. A test result that is nonreactive does not exclude the possibility of exposure to or infection with HIV-1 and/or HIV-2. Nonreactive results in this assay for individuals with prior exposure to HIV-1 and/or HIV-2 may be due to antigen and antibody levels that are below the limit of detection of this assay. In [facility] lab results found from 12/07/[address] Tavares HSV1 IgG---5.00 HSV2 IgG--->5.00 Assessment & Plan Assessment & Plan (1) Breast screening: Code(s): Z12.39 - Encounter for other screening for malignant neoplasm of breast Category: Medical (2) Encounter for routine gynecological examination: Code(s): Z01.419 - Encounter for gynecological examination (general) (routine) without abnormal findings Category: Medical (3) Cervical cancer screening: Comment: 05/01/21= pap is neg, hpv neg Code(s): Z12.4 - Encounter for screening for malignant neoplasm of cervix Category: Medical (4) Possible exposure to STD: Comment: See note had blood work done with primary care which we are discussed in detail today. Code(s): Z20.2 - Contact with and (suspected) exposure to infections with a predominantly sexual mode of transmission Category: Medical (5) Screening for STD (sexually transmitted disease): Code(s): Z11.3 - Encounter for screening for infections with a predominantly sexual mode of transmission Category: Medical (6) Herpes: Comment: Has never had an outbreak that she recalls see note for discussion of positive serology from 10/04, and results also found in system from 11/23. Code(s): B00.9 - Herpesviral infection, unspecified Category: Medical Plan -----Discussed in this visit the following: healthy balanced diet, regular and consistent exercise, getting recommended health screens, doing the best she can for her particular health concerns, kegel exercises, pap smear screening and followup recommendations, mammography screening and SBE, normal changes in cycles in her life stage--- . Patient sees her primary care provider for most of her health concerns and says she is up-to-date on her mammograms today the topic of concern on her mind was her recent lab results showing positive herpes.. She was greatly bothered by this because her is in [facility] and she is not sure how she is going to explain this as she had stepped outside their relationship. Patient did not recall ever having a herpes outbreak either generally or on her lips as far she could recall. She says she has had all of her care in this institution for very long time so search was done of historical lab visits/encounters, and I found positive HSV results from 2016 also ordered by her primary care provider. I just got just the herpes can be transmitted either orally or generally as well as other ways but those of the most common areas for contact and once we come in contact with the virus it stays in her system and lies dormant until stress or something else allows it to be activated and we experience what is called an outbreak that is when it is most contagious and we need to avoid contact with others. Discussed that there is a medication that I can prescribe and I did prescribe it for her that she could take if she ever does experience an outbreak for 3-5 days. Discussed more importantly that this diagnosis of herpes for her is not in fact new, and that as far back as at least 2016 the herpes virus showed in a blood test that her primary care provider did then I printed those results and gave them to her so she could have a copy of those as well. I would not be able to tell her when she 1st acquired the herpes and it could have been possibly even as a child orally but there is no way I could say and only she could tell if she recalled having any lesions anywhere that might have indicated a primary outbreak. She seemed relieved to understand the historical nature of her exposure to this and said she felt somewhat relieved I did send a prescription to her pharmacy that she can use whenever she thinks she might have a tingly or otherwise unusual sensation that could indicate an outbreak. Orders: Orders CT NG by PCR Today B37.31 - Acute candidiasis of vulva and vagina Bacterial Vaginosis Panel Today B37.31 - Acute candidiasis of vulva and vagina Medications: New valacyclovir take 1 tablet po q day x 3-5 days for outbreaks 1,000 mg PO DAILY 30 tabs 0RF Coding Level of Care Code Est Pt Prev Care 40-64y(81830) Diagnoses Breast screening Z12.39 Encounter for routine gynecological examination Z01.419 Cervical cancer screening Z12.4 Possible exposure to STD Z20.2 Screening for STD (sexually transmitted disease) Z11.3 Herpes B00.9
[2024-12-05 13:49] VITALS: BP 126/76; BMI 44.3
--- OUTSIDE RECORDS SUMMARY | 2024-12-05 16:18 | XMS_ITS | Clinical Summary ---
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
== END 2024-12-05 15:10 | disposition home or self-care (01) ==
PROVIDERS: PCP Internal Medicine; Visit Provider Advanced Practice Midwife
DX: Z01.419 Encounter for gynecological examination (general) (routine) without abnormal findings (principal); B00.9 Herpesviral infection, unspecified; Z20.2 Contact with and (suspected) exposure to infections with a predominantly sexual mode of transmission
CPT/HCPCS: 99396; 99459

== ENCOUNTER 2024-12-05 13:38 | Outpatient (REF) | payer OTHER, SELFPAY ==
--- OUTSIDE RECORDS SUMMARY | 2024-12-05 18:01 | XMS_ITS | Clinical Summary ---
Author Organization [facility] ity Address [address] [place] [address] Care Team Providers Care Business Change Manager Name Role Phone Unavailable Primary Care Provider [...]
[2024-12-05 18:12] LABS: Bacterial Vaginosis PCR NEGATIVE (Negative); Candida Group PCR NOT DETECTED (Not Detect); Candida glab krusei PCR NOT DETECTED (Not Detect); Trichomonas vaginalis PCR NOT DETECTED (Not Detect)
[2024-12-05 18:42] LABS: CT PCR NOT DETECTED (Not Detect.); NG PCR NOT DETECTED (Not Detect.)
== END 2024-12-05 13:39 | disposition home or self-care (01) ==
LOC: HO.LNP 13:38
PROVIDERS: PCP Internal Medicine; Visit Provider Advanced Practice Midwife
DX: Z01.419 Encounter for gynecological examination (general) (routine) without abnormal findings (principal); B37.31 Acute candidiasis of vulva and vagina; Z11.3 Encounter for screening for infections with a predominantly sexual mode of transmission; Z20.2 Contact with and (suspected) exposure to infections with a predominantly sexual mode of transmission; Z87.42 Personal history of other diseases of the female genital tract
CPT/HCPCS: 81515; 87491; 87591; 99396; 99459

== ENCOUNTER 2025-01-09 12:44 | Outpatient (AMB) | payer OTHER, SELFPAY ==
--- NOTE | 2025-01-09 12:50 | A.OFFVIS_ITS ---
Vital Signs 01/09/25 13:00 Height 5 ft 2 in Weight 248 lb 0.321 oz BMI 45.4 BP 122/70 Blood Pressure Location Rt brachial Position Sitting Pulse 69 Pulse Source Pulse Oximeter Pulse Oximetry (%) 96 Oxygen Delivery Method Room Air Intake Visit Reasons: asthma Allergies No Known Allergies Allergy (Verified 01/09/25 13:03) HPI HPI asthma: Details: Dania is a pleasant 60 year old female, never smoker, with underlying asthma, GERD, HTN , mild MILLIE unable to tolerate CPAP, anxiety and depression. She has been using Breo 100 mcg with good control of respiratory symptoms, rarely requiring albuterol MDI. She denies any visits to urgent care or hospitalizations related to respiratory distress since the last visit. Today she presents for routine visit. 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) Alcohol intake: never Patient Tobacco Use Status: Never used Tobacco e-Cigarette/Vaping Use: Never Used Second Hand Smoke Exposure: No Substance Use Type: Marijuana service: No Current occupational status: disabled Cognitive needs: No Hearing needs: No Vision needs: No Female Reproductive History Menstrual Age of Menarche: 14 Review of Systems Const Denies chills, Denies excessive sweating, Denies fever(s), Denies headache(s) and Denies night sweats Eyes Denies dry eyes, Denies irritation and Denies itchy eyes ENT Reports Normal hearing present, Denies headache(s), Denies post nasal drip and Denies sore throat Card Denies chest pain, Denies chest pain at rest, Denies chest pain with activity, Denies claudication, Denies leg edema, Denies orthopnea and Denies paroxysmal nocturnal dyspnea Resp Denies chest congestion, Denies cough, Denies excessive phlegm production, Denies pain on inspiration, Denies pain with cough and Denies stridor Musc Denies myalgias Neuro Reports Normal hearing present and Denies headache(s) Endo Denies excessive sweating Abisai/Lymph Denies lymphadenopathy Aller/Immun Denies itchy eyes and Denies seasonal rhinorrhea Physical Exam Vital Signs: Last Vital Signs Pulse 69 01/09/25 13:00 BP 122/70 01/09/25 13:00 Pulse Ox 96 01/09/25 13:00 Oxygen Delivery Method Room Air 01/09/25 13:00 BMI result Body Mass Index 45.4 Const General: cooperative, healthy appearing, comfortable, no acute distress, well developed and alert Nutritional Appearance: obese Orientation/consciousness: patient oriented x3 Limitations: no limitations HEENT Head: Yes normal to inspection, Yes normocephalic and Yes atraumatic Ears: hearing grossly normal bilaterally and external ears normal Eyes General: appearance normal, both eyes and all related structures Eyelids: Yes eyelids normal Sclerae: sclerae normal EOM: EOMs intact bilaterally Neck Neck: Yes normal visual inspection and Yes no lymphadenopathy Lymphatic: no lymphadenopathy noted Chest Chest palpation & inspection: normal inspection of the chest Resp Effort & Inspection: normal respiratory effort, able to speak in complete sentences, no audible wheezes, no cough, no stridor, not tachypneic, no tripod positioning and no use of accessory muscles Auscultation: clear to auscultation bilaterally Cardio Jugular venous distension: no JVD Rate: regular rate Rhythm: regular rhythm Skin Other: warm, dry General skin exam: no rashes or lesions noted Neuro General: patient oriented x3 Cranial nerves: Yes Normal hearing present Cognition (Neuro): normal cognition Gait exam (Neuro): Normal gait present Extrem General: Yes normal to inspection, Yes capillary refill normal, Yes no clubbing, cyanosis or edema and Yes no pedal edema Psych Appearance: grossly normal and well kempt Speech and movement: Normal speech and movement present and Clear speech present Affect: normal affect Attitude: cooperative Thought process: Normal thought process present Thought content: Normal thought content present Insight: Good insight present (Psych) Judgement: Good judgement present (Psych) Assessment & Plan Assessment & Plan (1) Asthma: Code(s): Lilliana45.909 - Unspecified asthma, uncomplicated Category: Medical (2) Sleep apnea: Code(s): G47.30 - Sleep apnea, unspecified Category: Medical Qualifiers: Sleep apnea type: unspecified type Qualified Code(s): G47.30 - Sleep apnea, unspecified (3) Environmental allergies: Code(s): Z91.09 - Other allergy status, other than to drugs and biological substances Category: Medical Plan At this time Dania reports good control of respiratory symptoms on current regimen, advised to continue Breo and albuterol MDI. She is aware if symptoms become less controlled to call office. We again reviewed dx of MILLIE, and has been attempting positional therapy as MILLIE is mild at this time. All questions were answered and patient is in agreement of plan. Will follow up in 6 months or sooner if needed. Coding Level of Care Code Est Pt Level 3 (31242) Diagnoses Asthma J45.909 Sleep apnea, unspecified type G47.30 Sleep apnea type: unspecified type Environmental allergies Z91.09
[2025-01-09 13:00] VITALS: BP 122/70; PULSE 69; O2SAT 96; BMI 45.4
--- OUTSIDE RECORDS SUMMARY | 2025-01-09 13:42 | XMS_ITS | Clinical Summary ---
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
== END 2025-01-09 13:14 | disposition home or self-care (01) ==
LOC: HO.HPS 12:45
PROVIDERS: PCP Internal Medicine; Visit Provider Nurse Practitioner Family
DX: J45.909 Unspecified asthma, uncomplicated (principal); G47.30 Sleep apnea, unspecified; Z91.09 Other allergy status, other than to drugs and biological substances
CPT/HCPCS: 99213

== ENCOUNTER → 2025-01-09 12:44 | Outpatient (BNVA) | payer OTHER, SELFPAY | PROVIDERS: PCP Internal Medicine; Visit Provider Nurse Practitioner Family | DX: J45.909 Unspecified asthma, uncomplicated (principal); G47.33 Obstructive sleep apnea (adult) (pediatric); Z91.09 Other allergy status, other than to drugs and biological substances | CPT/HCPCS: 99212 ==

== ENCOUNTER 2025-01-17 11:32 | Outpatient (REF) | payer OTHER, SELFPAY ==
--- NOTE | ~2025-01-17 | XR_ITS ---
EXAMINATION: XR SHOULDER, RIGHT CLINICAL INFORMATION: M25.511 - Pain in right shoulder COMPARISON: November 10, 2016 TECHNIQUE: AP external rotation, Grashey, scapular Y, and axillary views of the right shoulder. FINDINGS: 2 anchors are present in the humeral head likely related to rotator cuff repair. AC joint is intact. There is questionable subacromial spur. Mild degenerative changes are present. Humeral head demonstrates large marginal osteophytes as well as central osteophytes. Glenoid demonstrates small marginal osteophytes. The humeral joint space is relatively preserved. XR/XR shoulder RT min 2V IMPRESSION: Postoperative changes after rotator cuff repair. Moderate degenerative changes with central marginal osteophytes affecting the humeral head and small marginal osteophytes involving glenoid. Mild AC joint arthropathy and possible subacromial spur. IMPRESSION: Normal right shoulder. Electronically signed by: Juvencio Garrett MD 01/17/2025 06:21 PM EDT
== END 2025-01-17 11:33 | disposition home or self-care (01) ==
LOC: HO.HMGCX 11:32
PROVIDERS: PCP Internal Medicine; Visit Provider Internal Medicine
DX: I10 Essential (primary) hypertension (principal); F41.1 Generalized anxiety disorder; M75.02 Adhesive capsulitis of left shoulder; M25.511 Pain in right shoulder; G89.29 Other chronic pain; E66.01 Morbid (severe) obesity due to excess calories; J45.40 Moderate persistent asthma, uncomplicated; G47.30 Sleep apnea, unspecified; G47.9 Sleep disorder, unspecified; R10.13 Epigastric pain; F33.41 Major depressive disorder, recurrent, in partial remission; R79.89 Other specified abnormal findings of blood chemistry; Z79.899 Other long term (current) drug therapy; Z91.09 Other allergy status, other than to drugs and biological substances
CPT/HCPCS: 73030; 96127; 99212

== ENCOUNTER 2025-01-17 11:32 | Outpatient (AMB) | payer OTHER, SELFPAY ==
[2025-01-17 11:42] VITALS: BP 124/86; PULSE 65; RESP 16; TEMP 36.7; O2SAT 99; BMI 45.4
--- NOTE | 2025-01-17 11:42 | MHC.PC.OV ---
Vital Signs 01/17/25 11:42 Height 5 ft 2 in Weight 248 lb BMI 45.4 BP 124/86 Blood Pressure Location Rt brachial Position Sitting Respiration 16 Pulse 65 Pulse Source Pulse Oximeter Temp 98.0 F Temp Source Oral Pulse Oximetry (%) 99 Oxygen Delivery Method Room Air Intake Visit Reasons: 3 months f/up Allergies No Known Allergies Allergy (Verified 01/17/25 11:42) Medication List - Last Reconciled 01/17/25 by Kinjal Tavares MD acetaminophen ER (Tylenol Arthritis Pain) 650 mg PO Q12H PRN 90 days albuterol sulfate 90 mcg/actuation 2 puffs inhalation Q4-6H PRN alprazolam 0.25 mg PO DAILY PRN 30 days aspirin 81 mg PO DAILY 90 days fluticasone furoate-vilanterol 100-25 mcg/dose (Breo Ellipta) 1 inh inhalation DAILY lisinopril-hydrochlorothiazide 20-25 mg 1 tab PO DAILY 90 days omeprazole 20 mg PO DAILY 90 days rosuvastatin 20 mg PO DAILY 90 days sertraline 200 mg (2 x 100 mg) PO DAILY [Shower chair with back As directed] valacyclovir 1,000 mg PO DAILY zolpidem 10 mg PO BEDTIME 30 days Tobacco use date assessed: 01/17/25 Dental Screening Dental Screen Date: 01/17/25 Did you have a dental visit in the last 12 months?: Yes Did you have a dental problem in the last 6 months where you did not have access to dental care?: No Was dental information given to patient?: Patient has dentist HPI 3 months f/up HPI Details 60 year old female , came in for her regular 3 M f.u apt Continued to have pain right shoulder patient have a frozen shoulder She is asking for referral to orthopedic which I have placed Her BMI is 45.4, having difficulty losing weight and is interested to have a visit with a weight loss program [facility] - recent labs shows slightly elevated LFTs, we will continue to monitor she has no abdominal symptoms Sleep apnea: Supposed to be using Cpap machine, but tells me that she can not, Patient is established with contracting specialist and is taking Breo inhaler through them Essential Hypertension is controlled with lisinopril and hydrochlorothiazide. - Allergic Conjunctivitis persists with itchy eyes, treated with medicated drops. Insomnia is effectively managed with zolpidem. Hyperlipidemia is under control through rosuvastatin, Gastroesophageal Reflux Disease remains asymptomatic with omeprazole intervention. - No episodes of dizziness were noted, and the patient is off meclizine. She take alprazolam for anxiety and restless legs syndrome And zolpidem to sleep at night Problem List - Essential Hypertension - Chronic Obstructive Pulmonary Disease (COPD) - Allergic Conjunctivitis - Insomnia - Hyperlipidemia - Gastroesophageal Reflux Disease (GERD) - Major Depressive Disorder - insomnia - panic attacks - morbid obesity - frozen shoulder right - sleep apnea Patient Instructions - Continue using the breathing machine at night for shortness a breath as needed and follow up with collective bargaining specialist - Utilize prescribed eye drops for allergic conjunctivitis. - Maintain current medication regimen for hypertension, insomnia, hyperlipidemia, and GERD. dont share your controlled meds with anyone f,u 3 M Review of Systems. - General: No fever no chills - Neurological: No headaches no dizziness - Ear nose throat: No sore throat no hearing difficulty no ear pain - Cardiovascular: No syncope, no chest pain, no palpitations - Gastrointestinal: No nausea vomiting or diarrhea - Endocrine: No polyuria polydipsia no heat intolerance - Genitourinary: No dysuria , no blood in urine Physical Exam General: No acute distress HEENT: no acute findings Neck: Supple Respiratory system: Able to talk in full sentences, no audible wheeze cardiovascular: S1-S2 regular in rate and rhythm Gastrointestinal: No pain Extremities: No new findings 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 oriented x3 motor sensory intact Skin: Itchy, normal turgor PFSH Medical History Asthma Elevated cholesterol GERD (gastroesophageal reflux disease) Vertigo Anxiety Depression HTN (hypertension) COVID-19 Surgical History Hx of cystoscopy H/O colonoscopy Hx of tubal ligation H/O shoulder surgery Hx of cholecystectomy Family History Mother Diabetes Sister Diabetes HTN (hypertension) Colon cancer Paternal Uncle Colon cancer Social History Household Members: Significant Other Housing: House Do you presently have visiting nurse or other home services: Yes (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 1. Little interest or pleasure in doing things: not at all 2. Feeling down, depressed, or hopeless: not at all 3. Trouble falling or staying asleep, or sleeping too much: several days 4. Feeling tired or having little energy: not at all 5. Poor appetite or overeating: not at all 6. Feeling bad about yourself - or that you are a failure or have let yourself or your family down: not at all 7. Trouble concentrating on things, such as reading the newspaper or watching television: not at all 8. Moving or speaking so slowly that other people could have noticed. Or the opposite - being so fidgety or restless that you have been moving around a lot more than usual: not at all 9. Thoughts that you would be better off or of hurting yourself in some way: several days Total score: 2 Depression Screening Interpretation: Negative Depression Screening Done: Yes 51557 - PHQ-9 Billing: Yes Source: Developed by Drs. Agustin Lucas, Katie Brennan, Christopher Cee and colleagues, with an educational jean pierre from [employer]. Thrive Questionnaire Date Thrive assessed: 01/17/25 I am a: Patient What is your living situation today?: I choose not to answer this question Within the past 12 months, did the food you bought not last and you didn't have the money to get more?: I choose not to answer this question Within the past 12 months, did you worry whether your food would run out before you got money to buy more?: I choose not to answer this question Do you have trouble paying for medicines?: I choose not to answer this question Do you have trouble getting transportation to medical appointments?: I choose not to answer this question Do you have trouble paying your heating and electricity bill?: I choose not to answer this question Do you have trouble taking care of your child, family member or friend?: I choose not to answer this question Do you have trouble with day-to-day activities such as bathing, preparing meals, shopping, managing finances, etc.?: I choose not to answer this question Are you currently unemployed and looking for a job?: I choose not to answer this question Are you interested in more education?: I choose not to answer this question Please select the resources that you would like help with: None Currently or been in a relationship where the following occur: I choose not to answer THRIVE Score: 0 AUDIT C Alcohol Use Questionnaire (AUDIT-C) 1. How often do you have a drink containing alcohol?: Never 3. How often do you have six or more drinks on one occasion?: Never Total Score: 0 Score Reviewed/Action Taken: Yes MANUELA-7 AMB Questionnaire MANUELA-7 Date MANUELA - 7 assessed: 09/30/24 Source: Developed by Drs. Agustin Lucas, Katie Brennan, Christopher Cee and colleagues, with an educational jean pierre from [employer]. Physical exam (Primary Care) Vital Signs: Last Vital Signs Temp 98.0 F 01/17/25 11:42 Pulse 65 01/17/25 11:42 Resp 16 01/17/25 11:42 BP 124/86 01/17/25 11:42 Pulse Ox 99 01/17/25 11:42 Oxygen Delivery Method Room Air 01/17/25 11:42 BMI result Body Mass Index 45.4 Tobacco/Smoking Status: Tobacco use Status Tobacco use date assessed 01/17/25 01/17/25 11:51 Patient Tobacco Use Status Never used Tobacco 01/17/25 11:43 Tobacco use type 10/27/24 11:51 e-Cigarette/Vaping Use Never Used 01/17/25 11:43 PHQ-9: PHQ-9 Score PHQ-9: Total score 2 01/17/25 11:59 Depression Screening Interpretation: Negative Thrive Assessment: Date of Thrive Assessment Date Thrive assessed 01/17/25 01/17/25 11:43 Currently or been in a relationship where the following occur: I choose not to answer Coding Level of Care Code Est Pt Level 5 (68254) Diagnoses Hypertension, essential I10 Anxiety, generalized F41.1 Adhesive capsulitis of left shoulder M75.02 Laterality: left Chronic right shoulder pain M25.511; G89.29 Chronicity: chronic Morbid obesity due to excess calories E66.01 Moderate persistent asthma without complication J45.40 Asthma complication type: uncomplicated Asthma persistence: persistent Asthma severity: moderate Sleep apnea, unspecified type G47.30 Sleep apnea type: unspecified type Environmental allergies Z91.09 Difficulty sleeping G47.9 Dyspepsia R10.13 Recurrent major depressive disorder, in partial remission F33.41 Active/Remission status: in partial remission LFT elevation R79.89 Additional Codes PHQ-9 - 51093 - PHQ-9 Billing: Yes ([id number]) Time Spent (min) 40 Comment Reviewing chart/labs, [id number] with patient and sister, coordination of care Assessment & Plan Assessment & Plan (1) Hypertension, essential: Code(s): I10 - Essential (primary) hypertension Category: Medical (2) Anxiety, generalized: Code(s): F41.1 - Generalized anxiety disorder Category: Medical (3) Frozen shoulder syndrome: Code(s): M75.00 - Adhesive capsulitis of unspecified shoulder Category: Medical Qualifiers: Laterality: left Qualified Code(s): M75.02 - Adhesive capsulitis of left shoulder (4) Shoulder pain, right: Code(s): M25.511 - Pain in right shoulder Category: Medical Qualifiers: Chronicity: chronic Qualified Code(s): M25.511 - Pain in right shoulder; G89.29 - Other chronic pain (5) Morbid obesity due to excess calories: Code(s): E66.01 - Morbid (severe) obesity due to excess calories Category: Medical (6) Asthma: Code(s): J45.909 - Unspecified asthma, uncomplicated Category: Medical Qualifiers: Asthma complication type: uncomplicated Asthma persistence: persistent Asthma severity: moderate Qualified Code(s): J45.40 - Moderate persistent asthma, uncomplicated (7) Sleep apnea: Code(s): G47.30 - Sleep apnea, unspecified Category: Medical Qualifiers: Sleep apnea type: unspecified type Qualified Code(s): G47.30 - Sleep apnea, unspecified (8) Environmental allergies: Code(s): Z91.09 - Other allergy status, other than to drugs and biological substances Category: Medical (9) Difficulty sleeping: Code(s): G47.9 - Sleep disorder, unspecified Category: Medical (10) Dyspepsia: Code(s): R10.13 - Epigastric pain Category: Medical (11) Major depression, recurrent: Code(s): F33.9 - Major depressive disorder, recurrent, unspecified Category: Medical Qualifiers: Active/Remission status: in partial remission Qualified Code(s): F33.41 - Major depressive disorder, recurrent, in partial remission (12) LFT elevation: Code(s): R79.89 - Other specified abnormal findings of blood chemistry Category: Medical Plan 60 year old female , came in for her regular 3 M f.u apt, came in with her sister Continued to have pain right shoulder patient have a frozen shoulder She is asking for referral to orthopedic which I have placed Her BMI is 45.4, having difficulty losing weight and is interested to have a visit with a weight loss program [facility] recent labs shows slightly elevated LFTs, we will continue to monitor she has no abdominal symptoms Sleep apnea: Supposed to be using Cpap machine, but tells me that she can not, Patient is established with contracting specialist and is taking Breo inhaler through them Essential Hypertension is controlled with lisinopril and hydrochlorothiazide. - Allergic Conjunctivitis persists with itchy eyes, treated with medicated drops. Insomnia is effectively managed with zolpidem. Hyperlipidemia is under control through rosuvastatin, Gastroesophageal Reflux Disease remains asymptomatic with omeprazole intervention. - No episodes of dizziness were noted, and the patient is off meclizine. She take alprazolam for anxiety and restless legs syndrome And zolpidem to sleep at night Problem List - Essential Hypertension - Chronic Obstructive Pulmonary Disease (COPD) - Allergic Conjunctivitis - Insomnia - Hyperlipidemia - Gastroesophageal Reflux Disease (GERD) - Major Depressive Disorder - insomnia - panic attacks - morbid obesity - frozen shoulder right - sleep apnea Patient Instructions - Continue using the breathing machine at night for shortness a breath as needed and follow up with collective bargaining specialist - Utilize prescribed eye drops for allergic conjunctivitis. - Maintain current medication regimen for hypertension, insomnia, hyperlipidemia, and GERD. dont share your controlled meds with anyone f,u 3 M Orders: Orders XR shoulder RT min 2V Today M25.511 - Pain in right shoulder Referrals Orthopedics Referral M25.511 - Pain in right shoulder Bariatric Surgery Referral E66.01 - Morbid (severe) obesity due to excess calories Medications: Refilled zolpidem 10 mg PO BEDTIME 30 tabs 2RF 30 days G47.9 - Sleep disorder, unspecified
--- OUTSIDE RECORDS SUMMARY | 2025-01-17 13:52 | XMS_ITS | Clinical Summary ---
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
== END 2025-01-17 12:07 | disposition home or self-care (01) ==
LOC: HO.HMCC 11:32
PROVIDERS: PCP Internal Medicine; Visit Provider Internal Medicine
DX: I10 Essential (primary) hypertension (principal); F41.1 Generalized anxiety disorder; E66.01 Morbid (severe) obesity due to excess calories; Z68.42 Body mass index [BMI] 45.0-49.9, adult; M75.02 Adhesive capsulitis of left shoulder; M25.511 Pain in right shoulder; G89.29 Other chronic pain; J45.40 Moderate persistent asthma, uncomplicated; G47.30 Sleep apnea, unspecified; Z91.09 Other allergy status, other than to drugs and biological substances; G47.9 Sleep disorder, unspecified; R10.13 Epigastric pain; F33.41 Major depressive disorder, recurrent, in partial remission

== ENCOUNTER → 2025-01-17 12:12 | Outpatient (BNV) | payer OTHER, SELFPAY | PROVIDERS: PCP Internal Medicine; Visit Provider Radiology Diagnostic Radiology | DX: M25.511 Pain in right shoulder (principal) | CPT/HCPCS: 73030 ==

== ENCOUNTER 2025-02-22 08:23 | Outpatient (AMB) | payer OTHER, SELFPAY ==
--- OUTSIDE RECORDS SUMMARY | 2025-02-22 08:26 | XMS_ITS | Clinical Summary ---
Author Organization [facility] ity Address [address] [place] [address] Care Team Providers Care Head Shipper Name Role Phone Unavailable Primary Care Provider [...] 2023-2 5 season) 2024 Influenza Vaccine (#1) 2025 RSV Immunization Adult Patie nts (1 - 1-dose 75+ series) 2041 HIB Vaccines Aged Out No longer eligi [...]
--- NOTE | 2025-02-22 10:17 | MHC.OFFVISWM ---
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: Yes Senior Java Web Developer Services: Senior Java Web Developer Present Information Interpreted: clinical only Allergies No Known Allergies Allergy (Verified 02/01/25 09:29) Medication List - Last Reconciled 02/22/25 by Mauricio Kelly MD acetaminophen ER (Tylenol Arthritis Pain) 650 mg PO Q12H PRN 90 days albuterol sulfate 90 mcg/actuation 2 puffs inhalation Q4-6H PRN alprazolam 0.25 mg PO DAILY PRN 30 days aspirin 81 mg PO DAILY 90 days fluticasone furoate-vilanterol 100-25 mcg/dose (Breo Ellipta) 1 inh inhalation DAILY fluticasone furoate-vilanterol 100-25 mcg/dose (Breo Ellipta) 1 inh inhalation DAILY lisinopril-hydrochlorothiazide 20-25 mg 1 tab PO DAILY 90 days omeprazole 20 mg PO DAILY 90 days sertraline 200 mg (2 x 100 mg) PO DAILY [Shower chair with back As directed] valacyclovir 1,000 mg PO DAILY zolpidem 10 mg PO BEDTIME 30 days HPI HPI TV PROVIDER RELATIONS ADVOCATE SWL vs MWL BMI 44.6 *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*: Details: Start time: 10.01am, End time: 11.07 I spent 51 minutes speaking with the patient on the phone plus an additional 5 minutes reviewing and updating records for a total of 56 minutes HPI Comments Details: Previous weight loss efforts: Self diet and exercise Wakes up: 10am, Sleeps: 11pm Breakfast: 11am occasionally eggs Lunch: skips Dinner: 5pm (meat, rice, vegetables) Snacks: 12pm (crackers), 1-2 after dinner (pancakes, peanut butter sandwich) Exercise: none Beverages: Coffee: none, Tea: none, Soda: none, Juice: 3/wk (Cranberry), ETOH: 1/wk (4 beers) PFSH Medical History (Updated 02/22/25 @ 10:25 by Mauricio Kelly MD) DJD (degenerative joint disease) Sleep apnea Morbid obesity Asthma Elevated cholesterol GERD (gastroesophageal reflux disease) Vertigo Anxiety Depression HTN (hypertension) COVID-19 Surgical History Hx of cystoscopy H/O colonoscopy Hx of tubal ligation H/O shoulder surgery Hx of cholecystectomy Family History Mother Diabetes Sister Diabetes HTN (hypertension) Colon cancer Paternal Uncle Colon cancer Social History (Updated 01/31/25 @ 13:21 by Addie Bah [facility]) Household Members: Significant Other Housing: House Do you presently have visiting 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) Alcohol intake: current Alcohol intake frequency: holidays/special occasions only Patient Tobacco Use Status: Never used Tobacco e-Cigarette/Vaping Use: Never Used Second Hand Smoke Exposure: No Substance Use Type: Marijuana service: No Current occupational status: disabled Cognitive needs: No Hearing needs: No Vision needs: No Female Reproductive History Menstrual Age of Menarche: 14 Telehealth Telehealth Telehealth Platform: Telephone Location of provider rendering services: practice address Location of patient: address on file Patient Identification confirmed using: Name, : Yes Telehealth method: voice only Patient verbally consented to treatment: Yes Patient verbally consented to billing insurance company: Yes Patient informed of any privacy concerns related to visit: Yes Minutes spent on Phone/Video with Pt.: 56 Assessment & Plan Assessment & Plan (1) Morbid obesity due to excess calories: Code(s): E66.01 - Morbid (severe) obesity due to excess calories Category: Medical Plan: 1. Plan for lap sleeve gastrectomy. If diaphragmatic or ventral hernias are present at time of surgery, these will be repaired laparoscopically as well. I emphasized the importance of close follow-up, adherence to instructions and good communication. The surgery does not replace the need to change your lifestlyle which is the cause of the obesity problem. The surgery provides the motivation to try again to change your lifestyle, it reduces the appetite and make the transition to a better lifestyle easier and doubles the amount of weight you would lose compared to doing the lifestyle change without the surgery. You will need to be on a liquid diet with protein shakes for 2 weeks before surgery to maximize weight loss and boost your nutritional status to recover better from surgery and also for the first two weeks after surgery to let the stomach heal before we introduce other foods. After the first 2 weeks we will introduce protein bars and soft foods like scrambled eggs, cottage cheese and yogurt and after the 6th week will introduce meat, fish and cooked vegetables in small amounts. Over time you should be able to eat everything in small amounts. Side effects like nausea, vomiting, heartburn or abdominal pain are not common in the practice unless you are not following in the practice. This operation requires lifetime commitment to following in our practice and communication with me. You will much less weight and experience side effects if you don?t communicate or not following in the practice. Complications are rare and in our practice is about 1/10 of the national average. However, you can develop bleeding that may require transfusion (hasn?t happened for year in the practice), you may from complications (we did not have any deaths in the practice) and infections. Infections are usually a result of breakdown in communication or not understanding or following directions correctly. They are difficult to treat, they can happen during the first 6 weeks, they may require to be in the hospital for weeks or even months, not being able to eat by mouth and you may have drains and surgeries to try and correct the issue. Other risks and complications include possible conversion to an open procedure, leaks, small bowel obstruction, blood clots, cardiac, or pulmonary complications, as intermodal dispatcher complications such as ulcers, insufficient weight loss and vitamin deficiencies. 2.Nutritional counseling. Start with ONE premade PREMIER protein (buy at [employer], or [employer], or [employer]) shake (mix 4oz of PREMIER and NOT the whole bottle with 4oz of low fat unsweetened almond milk) at 11am-1pm, ONE protein bar (16gr Fit Crunch protein bars, buy at [employer] or [employer]) at 2pm-4pm, dinner at 5pm (10 forks of protein and 10 forks of salad/vegetables), another premade PREMIER protein shake (mix 4oz of PREMIER and NOT the whole bottle with 4oz low fat unsweetened almond milk) at 6pm-8pm, and one more [employer]unch protein bar after dinner at 9pm-11pm. So you do 2 protein shakes, 2 protein bars and one meal per day. Meal to include lean meat (beef, fish, pork, turkey, chicken), or lao yogurt, or egg whites, or beans with a salad with olive oil and fruits (berries, pears, apples, kiwi). Avoid salt, breads, potatoes, rice, pasta, desserts. 3. Each shake would be drunk slowly, like coffee in a period of 2 hours. 4. Cut each bar in 4 pieces and eat each piece in 30min to make each bar last 2 hours. 5. I emphasized the importance of measuring accurately the food portion and measure it when serving the food in plate 6. The meal portions include 10 full-size forks of meat and 10 full-size forks of salad. You always eat the meat portion but you can replace up to 5 forks for salad/vegetables with rice, potatoes or pasta, or a fruit if you like. The less you do it the better weight loss will be. 7. One full-size fork is what it can be scooped on the fork without falling aside and not what can be bit with the fork. Use regular forks like those you find in a typical restaurant. 8. Please buy the body composition scale we discussed and send me weight measurements as soon as possible and then once a week. Always include your diet and exercise plan. 9. Start walking outside daily, tracking calories with a goal of 300 calories per day, daily. Goal is to burn 2000 calories per week on exercise, which means either 300 calories daily, or 400 calories 5 days per week, or 500 calories 4 days per week, or 650 calories 3 days per week. 10. The best choice would be to purchase a stationary bike at home that can track calories. Start stationary bike at a resistance level of 4.0 Increase level by 1.0 every 3 min to a max level of 10.0. Stay at this level for 3 min and then return to level 4.0 and repeat same steps until 300 calories are burned. Goal is to burn 2000 calories per week on exercise 12. Goal is to lose at least 1.5-2lbs per week 13. Goal to lose 10% of your weight before surgery, which is about 23lbs. Ultimate weight goal: 220lbs before surgery 14. Please follow the diet plan exactly without any change. If you don't like something about the plan or you feel hungry you need to communicate with me so I can help you revise the plan. You should not change the plan yourself 15. To be scheduled for EGD to assess the stomach's anatomy. The possibility of biopsies was discussed. Patient needs to avoid use of NSAIDs and aspirin for 1 week prior to EGD. You must be on liquids only the day before your endoscopy. Risks of perforation and bleeding was discussed with the patient. This will be an outpatient procedure with IV sedation. 16. As of tomorrow, please send me a picture of your meal plate after you measure it, but before you consume it. Orders: Orders Hemoglobin A1c Today E66.01 - Morbid (severe) obesity due to excess calories, G47.30 - Sleep apnea, unspecified, I10 - Essential (primary) hypertension, J45.40 - Moderate persistent asthma, uncomplicated, K21.9 - Gastro-esophageal reflux disease without esophagitis Lipid Panel Today E66.01 - Morbid (severe) obesity due to excess calories, G47.30 - Sleep apnea, unspecified, I10 - Essential (primary) hypertension, J45.40 - Moderate persistent asthma, uncomplicated, K21.9 - Gastro-esophageal reflux disease without esophagitis IRON PROFILE Today E66.01 - Morbid (severe) obesity due to excess calories, G47.30 - Sleep apnea, unspecified, I10 - Essential (primary) hypertension, J45.40 - Moderate persistent asthma, uncomplicated, K21.9 - Gastro-esophageal reflux disease without esophagitis Vitamin B12 and Folate Today E66.01 - Morbid (severe) obesity due to excess calories, G47.30 - Sleep apnea, unspecified, I10 - Essential (primary) hypertension, J45.40 - Moderate persistent asthma, uncomplicated, K21.9 - Gastro-esophageal reflux disease without esophagitis C Reactive Protein Today E66.01 - Morbid (severe) obesity due to excess calories, G47.30 - Sleep apnea, unspecified, I10 - Essential (primary) hypertension, J45.40 - Moderate persistent asthma, uncomplicated, K21.9 - Gastro-esophageal reflux disease without esophagitis Vitamin B1 Today E66.01 - Morbid (severe) obesity due to excess calories, G47.30 - Sleep apnea, unspecified, I10 - Essential (primary) hypertension, J45.40 - Moderate persistent asthma, uncomplicated, K21.9 - Gastro-esophageal reflux disease without esophagitis TSH reflex Free T4 Today E66.01 - Morbid (severe) obesity due to excess calories, G47.30 - Sleep apnea, unspecified, I10 - Essential (primary) hypertension, J45.40 - Moderate persistent asthma, uncomplicated, K21.9 - Gastro-esophageal reflux disease without esophagitis Ferritin Today E66.01 - Morbid (severe) obesity due to excess calories, G47.30 - Sleep apnea, unspecified, I10 - Essential (primary) hypertension, J45.40 - Moderate persistent asthma, uncomplicated, K21.9 - Gastro-esophageal reflux disease without esophagitis XR chest 2V Today E66.01 - Morbid (severe) obesity due to excess calories, G47.30 - Sleep apnea, unspecified, I10 - Essential (primary) hypertension, J45.40 - Moderate persistent asthma, uncomplicated, K21.9 - Gastro-esophageal reflux disease without esophagitis FL upper GI w air Today E66.01 - Morbid (severe) obesity due to excess calories, G47.30 - Sleep apnea, unspecified, I10 - Essential (primary) hypertension, J45.40 - Moderate persistent asthma, uncomplicated, K21.9 - Gastro-esophageal reflux disease without esophagitis Insulin Today E66.01 - Morbid (severe) obesity due to excess calories, G47.30 - Sleep apnea, unspecified, I10 - Essential (primary) hypertension, J45.40 - Moderate persistent asthma, uncomplicated, K21.9 - Gastro-esophageal reflux disease without esophagitis H Pylori Breath Test Today E66.01 - Morbid (severe) obesity due to excess calories, G47.30 - Sleep apnea, unspecified, I10 - Essential (primary) hypertension, J45.40 - Moderate persistent asthma, uncomplicated, K21.9 - Gastro-esophageal reflux disease without esophagitis Complete Blood Count Auto Diff Today E66.01 - Morbid (severe) obesity due to excess calories, G47.30 - Sleep apnea, unspecified, I10 - Essential (primary) hypertension, J45.40 - Moderate persistent asthma, uncomplicated, K21.9 - Gastro-esophageal reflux disease without esophagitis Comprehensive Met. Panel Today E66.01 - Morbid (severe) obesity due to excess calories, G47.30 - Sleep apnea, unspecified, I10 - Essential (primary) hypertension, J45.40 - Moderate persistent asthma, uncomplicated, K21.9 - Gastro-esophageal reflux disease without esophagitis Zinc Today E66.01 - Morbid (severe) obesity due to excess calories, G47.30 - Sleep apnea, unspecified, I10 - Essential (primary) hypertension, J45.40 - Moderate persistent asthma, uncomplicated, K21.9 - Gastro-esophageal reflux disease without esophagitis Vitamin A Today E66.01 - Morbid (severe) obesity due to excess calories, G47.30 - Sleep apnea, unspecified, I10 - Essential (primary) hypertension, J45.40 - Moderate persistent asthma, uncomplicated, K21.9 - Gastro-esophageal reflux disease without esophagitis Vitamin D 25-OH Total Today E66.01 - Morbid (severe) obesity due to excess calories, G47.30 - Sleep apnea, unspecified, I10 - Essential (primary) hypertension, J45.40 - Moderate persistent asthma, uncomplicated, K21.9 - Gastro-esophageal reflux disease without esophagitis US abdomen comp w elastography Today E66.01 - Morbid (severe) obesity due to excess calories, G47.30 - Sleep apnea, unspecified, I10 - Essential (primary) hypertension, J45.40 - Moderate persistent asthma, uncomplicated, K21.9 - Gastro-esophageal reflux disease without esophagitis ECG 12 lead EKG Today E66.01 - Morbid (severe) obesity due to excess calories, G47.30 - Sleep apnea, unspecified, I10 - Essential (primary) hypertension, J45.40 - Moderate persistent asthma, uncomplicated, K21.9 - Gastro-esophageal reflux disease without esophagitis Referrals Behavioral Health Referral E66.01 - Morbid (severe) obesity due to excess calories, G47.30 - Sleep apnea, unspecified, I10 - Essential (primary) hypertension, J45.40 - Moderate persistent asthma, uncomplicated, K21.9 - Gastro-esophageal reflux disease without esophagitis Nutrition/Dietitian Referral E66.01 - Morbid (severe) obesity due to excess calories, G47.30 - Sleep apnea, unspecified, I10 - Essential (primary) hypertension, J45.40 - Moderate persistent asthma, uncomplicated, K21.9 - Gastro-esophageal reflux disease without esophagitis Medications: Refilled fluticasone furoate-vilanterol 100-25 mcg/dose (Breo Ellipta) 1 inh inhalation DAILY 60 ea 6RF
[2025-02-22 10:53] VITALS: BMI 44.5
== END 2025-02-22 11:09 | disposition home or self-care (01) ==
LOC: HO.HBS 08:23
PROVIDERS: PCP Internal Medicine; Visit Provider Surgery
DX: E66.01 Morbid (severe) obesity due to excess calories (principal)
CPT/HCPCS: 99205

== ENCOUNTER 2025-02-24 10:58 | Outpatient (REF) | payer OTHER, SELFPAY ==
--- NOTE | ~2025-02-24 | XR_ITS ---
EXAMINATION: XR CHEST CLINICAL INFORMATION: E66.01 - Morbid (severe) obesity due to excess calories COMPARISON: 06/28/2024. TECHNIQUE: 2 views of the chest were obtained. FINDINGS: Mildly elevated right hemidiaphragm. The cardiac, hilar, and mediastinal contours are normal. The lungs are clear bilaterally. There is no pneumothorax or pleural effusion. There is no focal osseous or soft tissue abnormality. There are surgical anchors in the right humeral head. There are cholecystectomy clips present. XR/XR chest 2V IMPRESSION: No active pulmonary disease. Electronically signed by: Clinton Gatica MD 02/24/2025 11:55 AM EDT
--- NOTE | 2025-02-24 11:02 | ECG_ITS ---
Test Reason : MOR OBS Blood Pressure : */* mmHG Vent. Rate : 63 BPM Atrial Rate : 63 BPM P-R Int : 138 ms QRS Dur : 76 ms QT Int : 442 ms P-R-T Axes : 34 -9 20 degrees QTcB Int : 452 ms Normal sinus rhythm Minimal voltage criteria for LVH, may be normal variant ( R in aVL ) Borderline ECG When compared with ECG of 17-Feb-2023 12:06, Criteria for Anterior infarct are no longer Present Criteria for Anterolateral infarct are no longer Present Referred By: Mauricio Kelly Electronically Signed By: OSMAN BUNCH
[2025-02-24 11:12] LABS: MANUAL DIFF FLAG NO
--- OUTSIDE RECORDS SUMMARY | 2025-02-24 11:33 | XMS_ITS | Clinical Summary ---
Author Organization [facility] ity Address [address] [place] [address] Care Team Providers Care Athletic Director Name Role Phone Unavailable Primary Care Provider [...]
[2025-02-24 11:39] LABS: Hematocrit 39.7 % (37.0-47.0); Hemoglobin 13.2 g/dl (12.0-16.0); Imm Gran Abs Auto 0.01 X10*3/uL (0.00-0.03); Imm Gran Pct Auto 0.2 % (0.0-0.4); Lymphocytes Absolute Auto 1.6 X10*3/uL (1.2-4.9); Mean Corpuscular HGB Conc 33.2 g/dl (31.0-35.0); Mean Corpuscular Hemoglobin 30.1 pg (27.0-33.0); Mean Corpuscular Volume 90.6 fL (80.0-98.0); NRBC Abs Auto 0.000 X10*3/uL (0.0-0.012); NRBC Pct Auto 0.0 /100WBC (0.0-0.2); Platelet Count 235 X10*3/uL (160-400); Red Blood Count 4.38 X10*6/uL (4.20-5.50); White Blood Count 4.8 X10*3/uL (4.8-10.8)
[2025-02-24 12:29] LABS: Hemoglobin A1C 128.9070 umol/L; Total Hemoglobin (HGBA1C) 3439.6721 umol/L
[2025-02-24 12:31] LABS: Alanine Aminotransferase 46 U/L (0-31); Albumin Level 4.2 g/dL (3.5-5.0); Alkaline Phosphatase 80 U/L (39-117); Anion Gap 12 (12-20); Aspartate Amino Transferase 35 U/L (5-31); Blood Urea Nitrogen 14 mg/dL (9-16); Calcium 9.1 mg/dL (8.4-10.2); Carbon Dioxide 26 mmol/L (22-29); Chloride 109 mmol/L (96-108); Cholesterol 204 mg/dL (<200); Estimated Glomerular Filt Rate > 60; HDL Cholesterol 56 mg/dL (>40); Iron 115 mcg/dL (30-160); Percent Iron Saturation 39 % (15-50); Potassium 4.0 mmol/L (3.3-5.1); Sodium 143 mmol/L (135-145); Total Iron Binding Capacity 294 mcg/dL (228-428); Total Protein 7.1 g/dL (6.5-8.0); Triglycerides 185 mg/dL (<150); Unsaturated Iron Binding 179 ug/dL
[2025-02-24 12:36] LABS: Ferritin 119 ng/mL (10-250)
[2025-02-24 12:50] LABS: Folate 13.0 ng/mL (> or = 4.0); Vitamin B12 471 pg/mL (200-900)
== END 2025-02-24 10:59 | disposition home or self-care (01) ==
LOC: HO.XRAY 10:58
PROVIDERS: PCP Internal Medicine; Visit Provider Surgery
DX: I10 Essential (primary) hypertension (principal); E66.01 Morbid (severe) obesity due to excess calories; K21.9 Gastro-esophageal reflux disease without esophagitis; J45.40 Moderate persistent asthma, uncomplicated; G47.30 Sleep apnea, unspecified; Z13.1 Encounter for screening for diabetes mellitus
CPT/HCPCS: 36415; 71046; 80053; 80061; 82306; 82607; 82728; 82746; 83036; 83525; 83540; 84425; 84443; 84590; 84630; 85025; 86140; 93005

== ENCOUNTER → 2025-02-24 11:02 | Outpatient (BNV) | payer OTHER, SELFPAY | PROVIDERS: PCP Internal Medicine; Visit Provider Internal Medicine | DX: E66.01 Morbid (severe) obesity due to excess calories (principal) | CPT/HCPCS: 93010 ==

== ENCOUNTER → 2025-02-24 11:19 | Outpatient (BNV) | payer OTHER, SELFPAY | PROVIDERS: PCP Internal Medicine; Visit Provider Radiology Diagnostic Radiology | DX: E66.01 Morbid (severe) obesity due to excess calories (principal) | CPT/HCPCS: 71046 ==

== ENCOUNTER 2025-03-09 07:39 | Outpatient (AMB) | payer OTHER, SELFPAY ==
--- OUTSIDE RECORDS SUMMARY | 2025-03-09 07:40 | XMS_ITS | Clinical Summary ---
Author Organization [facility] ity Address [address] [place] [address] Care Team Providers Care Parts Cleaner Name Role Phone Unavailable Primary Care Provider [...] 2) 01/07/2016 Colorectal Cancer Screening: Colonoscopy 03/11/2024 HIV Screening 03/11/2024 Hepatitis C Screening 03/11/2024 Social Influencers of Health Screening 03/11/2024 COVID-19 Vaccine ( - 2023-2 5 season) 2024 Depression Screening 08/10/2024 Influenza Vaccine (#1) 2025 RSV Immunization Adult [...]
[2025-03-09 07:41] VITALS: BP 142/90; PULSE 66; TEMP 36.7; O2SAT 97; BMI 44.3
--- NOTE | 2025-03-09 07:41 | MHC.OFFWIV ---
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 - Symptoms began on Thursday, with the patient experiencing cough, sore throat, chest, and back pain. - She has a history of asthma and has been using an inhaler for three days. - The patient denies fever but is unsure about nighttime temperatures and reports clear phlegm. - No recent travel or exposure to sick contacts, and she does not smoke. - Previously prescribed prednisone for similar symptoms. - She denies fever, chills, CP, SOB, abd pain, n/v/d. Physical Exam General: Cooperative, healthy appearing, comfortable and no acute distress Orientation/consciousness: Patient oriented x3 Head: Normal to inspection Ears: Hearing grossly normal bilaterally, external ears normal and TM's normal bilaterally Nose: Normal external nose present, normal nares present, and no nasal discharge present. Face and sinus: Sinuses nontender to palpation. Mouth: Normal oral and palatal mucosa present and moist mucous membranes noted. Throat: Throat looks okay. Uvula is midline. Posterior oropharynx with erythema and no exudates. Eyes: Appearance normal, both eyes and all related structures Neck: Normal visual inspection, full ROM. No lymphadenopathy noted. Respiratory: Clear to auscultation bilaterally. Normal respiratory effort, able to speak in complete sentences. No respiratory distress, not tachypneic, no tripod positioning and no use of accessory muscles. History of asthma, using inhaler for three days. Cardiovascular: Regular rate and rhythm. Normal S1 and S2 Skin: No rashes or lesions noted Patient was informed and verbally consented to the use of an ambient scribe for clinic note documentation during this visit [facility] Medical History (Updated 02/22/25 @ 10:25 by Mauricio Kelly MD) DJD (degenerative joint disease) Sleep apnea Morbid obesity Asthma Elevated cholesterol GERD (gastroesophageal reflux disease) Vertigo Anxiety Depression HTN (hypertension) COVID-19 Surgical History Hx of cystoscopy H/O colonoscopy Hx of tubal ligation H/O shoulder surgery Hx of cholecystectomy Family History Mother Diabetes Sister Diabetes HTN (hypertension) Colon cancer Paternal Uncle Colon cancer Social History (Updated 01/31/25 @ 13:21 by Addie Bah [facility]) Household Members: Significant Other Housing: House 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) Alcohol intake: current Alcohol intake frequency: holidays/special occasions only Patient Tobacco Use Status: Never used Tobacco e-Cigarette/Vaping Use: Never Used Second Hand Smoke Exposure: No Substance Use Type: Marijuana Patient : No service: No Current occupational status: disabled Cognitive needs: No Hearing needs: No Vision needs: No Female Reproductive History Menstrual Age of Menarche: 14 Review of Systems Const All systems reviewed & are unremarkable except as noted in HPI and below Physical Exam Vital Signs: Last Vital Signs Temp 98.1 F 03/09/25 07:41 Pulse 66 03/09/25 07:41 BP 142/90 H 03/09/25 07:41 Pulse Ox 97 03/09/25 07:41 Oxygen Delivery Method Room Air 03/09/25 07:41 BMI result Body Mass Index 44.3 Assessment & Plan Assessment & Plan (1) URI with cough and congestion: Code(s): J06.9 - Acute upper respiratory infection, unspecified Plan Most likely URI vs asthma exacerbation vs flu vs covid Rapid strep was negative Plan - Prescribe prednisone for asthma exacerbation as previously effective. - Prescribe cough medicine to alleviate symptoms. - Medications sent to patient's pharmacy for pickup. - VSS, pt well appearing - continue with the inhaler - follow up with PCP Medications: New benzonatate 100 mg PO bid-tid PRN 21 caps 0RF Cough 7 days prednisone 40 mg (2 x 20 mg) PO DAILY 10 tabs 0RF 5 days Coding Level of Care Code Est Pt Level 3 (82015) Diagnoses URI with cough and congestion J06.9
== END 2025-03-09 08:41 | disposition home or self-care (01) ==
PROVIDERS: PCP Internal Medicine; Visit Provider Physician Assistant Medical
DX: Z13.9 Encounter for screening, unspecified (principal); J06.9 Acute upper respiratory infection, unspecified

== ENCOUNTER → 2025-03-09 07:39 | Outpatient (BNVA) | payer OTHER, SELFPAY | PROVIDERS: PCP Internal Medicine; Visit Provider Physician Assistant Medical | DX: J06.9 Acute upper respiratory infection, unspecified (principal); R07.9 Chest pain, unspecified | CPT/HCPCS: 87880; 99212 ==

== ENCOUNTER 2025-03-14 13:44 | Outpatient (AMB) | payer OTHER, SELFPAY ==
[2025-03-14 13:47] VITALS: BMI 44.3
--- NOTE | 2025-03-14 13:47 | A.OFFVIS_ITS ---
Vital Signs 03/14/25 13:47 Height 5 ft 2 in Weight 242 lb BMI 44.3 Intake Visit Reasons: Right shoulder pain and weakness Intake Note: Dania is a 60 year old female who presents with complaints of progressively worsening right shoulder pain and weakness. The patient states that she underwent right shoulder surgery by Dr. Rose approximately 7 years ago. She initially did well following that surgery. She states that she re-injured her shoulder approximately 1 year ago while lifting a heavy object. Since that time she has had difficulty lifting her right hand above shoulder height. She has been to formal physical therapy which aggravated her pain. She has also tried Tylenol and anti-inflammatory medicines which gave her minimal relief. At this point her right shoulder pain and weakness or interfering with her activities of daily living and her ability to sleep well through the night. She has failed the last 6 weeks of conservative treatment. Allergies No Known Allergies Allergy (Verified 03/14/25 13:52) Medication List - Last Reconciled 03/14/25 by Geoffrey Quintanilla MD acetaminophen ER (Tylenol Arthritis Pain) 650 mg PO Q12H PRN 90 days albuterol sulfate 90 mcg/actuation 2 puffs inhalation Q4-6H PRN alprazolam 0.25 mg PO DAILY PRN 30 days aspirin 81 mg PO DAILY 90 days benzonatate 100 mg PO bid-tid PRN 7 days fluticasone furoate-vilanterol 100-25 mcg/dose (Breo Ellipta) 1 inh inhalation DAILY lisinopril-hydrochlorothiazide 20-25 mg 1 tab PO DAILY 90 days omeprazole 20 mg PO DAILY 90 days prednisone 40 mg (2 x 20 mg) PO DAILY 5 days sertraline 200 mg (2 x 100 mg) PO DAILY [Shower chair with back As directed] valacyclovir 1,000 mg PO DAILY zolpidem 10 mg PO BEDTIME 30 days FORMERLY [facility], [facility]–1983 Medical History (Updated 03/14/25 @ 14:10 by Geoffrey Quintanilla MD) DJD (degenerative joint disease) Sleep apnea Morbid obesity Asthma Elevated cholesterol GERD (gastroesophageal reflux disease) Vertigo Anxiety Depression HTN (hypertension) COVID-19 Surgical History Hx of cystoscopy H/O colonoscopy Hx of tubal ligation H/O shoulder surgery Hx of cholecystectomy Family History Mother Diabetes Sister Diabetes HTN (hypertension) Colon cancer Paternal Uncle Colon cancer Social History (Updated 01/31/25 @ 13:21 by Addie Bah CMA) Household Members: Significant Other Housing: House Do you presently have 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) Alcohol intake: current Alcohol intake frequency: holidays/special occasions only Patient Tobacco Use Status: Never used Tobacco e-Cigarette/Vaping Use: Never Used Second Hand Smoke Exposure: No Substance Use Type: Marijuana service: No Current occupational status: disabled Cognitive needs: No Hearing needs: No Vision needs: No Female Reproductive History Menstrual Age of Menarche: 14 Physical Exam Vital Signs: BMI result Body Mass Index 44.3 Const Other: Well-nourished well-developed very friendly female awake alert and oriented x3 in no acute distress Extrem Other: Right shoulder examination shows that the surgical incisions are well healed no erythema, no signs of infection, 3/5 strength with supraspinatus testing, positive impingement signs, no instability Results Reviewed Results Reviewed: X-rays of the patient's right shoulder show 2 suture anchors in the proximal humerus with no signs of loosening, a type 2 acromion, no acute bony abnormalities Assessment & Plan Assessment & Plan (1) Rotator cuff insufficiency of right shoulder: Code(s): M25.311 - Other instability, right shoulder Category: Medical Plan Ms. Olvin Meek presents with recurrent right shoulder pain and weakness most likely due to a recurrent rotator cuff tear. Thus, I will send the patient for an MRI of her right shoulder for further evaluation. I will see her back once the MRI is completed to discuss the findings and treatment options. Feel free to call me at any time should questions regarding her orthopedic management arise. Thank you very much for asking me to see this very friendly patient. I spent 20 minutes in reviewing the patient's records and imaging studies, seeing the patient and documenting in the medical record. Orders: Orders MR shoulder RT wo con 03/15/25 M25.311 - Other instability, right shoulder Coding Level of Care Code New Pt Level 3 (03434) Complex EM visit Add On G2211 Diagnoses Rotator cuff insufficiency of right shoulder M25.311
--- OUTSIDE RECORDS SUMMARY | 2025-03-14 14:26 | XMS_ITS | Clinical Summary ---
Author Organization [facility] ity Address [address] [place] [address] Care Team Providers Care Carpentry Supervisor Name Role Phone Unavailable Primary Care Provider [...]
== END 2025-03-14 14:08 | disposition home or self-care (01) ==
LOC: HO.HOS 13:45
PROVIDERS: PCP Internal Medicine; Visit Provider Orthopaedic Surgery
DX: M25.311 Other instability, right shoulder (principal)
CPT/HCPCS: 99203; G2211

== ENCOUNTER → 2025-03-14 13:44 | Outpatient (BNVA) | payer OTHER, SELFPAY | PROVIDERS: PCP Internal Medicine; Visit Provider Orthopaedic Surgery | DX: M25.511 Pain in right shoulder (principal); R53.1 Weakness; M25.311 Other instability, right shoulder | CPT/HCPCS: 99202 ==

== ENCOUNTER 2025-03-29 14:20 | Outpatient (AMB) | payer OTHER, SELFPAY ==
--- NOTE | 2025-03-29 14:25 | A.OFFPC_ITS ---
Vital Signs 03/29/25 14:26 Height 5 ft 2 in Weight 245 lb BMI 44.8 BP 140/80 H Blood Pressure Location Lt brachial Position Sitting Pulse 72 Pulse Source Pulse Oximeter Pulse Oximetry (%) 97 Intake Visit Reasons: Annual PE Allergies No Known Allergies Allergy (Verified 03/29/25 14:26) Medication List - Last Reconciled 03/29/25 by Kinjal Tavares MD acetaminophen ER (Tylenol Arthritis Pain) 650 mg PO Q12H PRN 90 days albuterol sulfate 90 mcg/actuation 2 puffs inhalation Q4-6H PRN alprazolam 0.25 mg PO DAILY PRN 30 days aspirin 81 mg PO DAILY 90 days fluticasone furoate-vilanterol 100-25 mcg/dose (Breo Ellipta) 1 inh inhalation DAILY lisinopril-hydrochlorothiazide 20-25 mg 1 tab PO DAILY 90 days omeprazole 20 mg PO DAILY 90 days sertraline 200 mg (2 x 100 mg) PO DAILY [Shower chair with back As directed] valacyclovir 1,000 mg PO DAILY zolpidem 10 mg PO BEDTIME 30 days Tobacco use date assessed: 01/17/25 Dental Screening Dental Screen Date: 01/17/25 HPI Annual PE HPI Details History of Present Illness The patient is a 60-year-old female presenting with depression management. And physical exam Major Depressive Disorder: - The patient reports a significant shahid ge in mood over the summer, initially attributed to menopause. - Symptoms include lack of motivation, s ocial withdrawal, prolonged periods spent in her room, persistent tiredness, and a significant loss of family members contributing to her low mood. - She acknowledges feeling depressed but is unsure about seeking additional help. - The decline in mental health seems inf luenced by bereavement and possible dissatisfaction with healthcare provider interactions. Vitamin D Deficiency: - Identified via lab results; the patien t noted her tiredness might be related to this deficiency. Vitamin B1 (Thiamine) Deficiency: - Lab results indicated low levels. - Patient unfamiliar with the deficiency until explained during the visit. Essential Hypertension: - The patient receives treatment with li sinopril and hydrochlorothiazide for blood pressure management. - No new symptoms reported concerning hy pertension. Insomnia: - Patient is on Zolpidem for sleep manag ement. Generalized Anxiety Disorder: - The patient is currently prescribed Se rtraline and Alprazolam, indicating existing anxiety management. Gastroesophageal Reflux Disease (GERD): - Ongoing treatment with Omeprazole sugg ests controlled GERD symptoms. Possible Obesity: - Concerns raised during weight manageme nt discussions. - Encountered stress due to a prior doct or's recommendation to lose weight quickly, contributing to depressive symptoms. Medical History: - Major Depressive Disorder with past an d ongoing treatment. - Essential Hypertension managed with an tihypertensive medications. - Generalized Anxiety Disorder managed w ith Sertraline and Alprazolam. - Insomnia treated with Zolpidem. - Gastroesophageal Reflux Disease manage d with Omeprazole. - Vitamin D Deficiency. - Vitamin B1 Deficiency. Social History: - Reports significant family losses, aff ecting mental health, including a cousin, brother, and multiple other relatives. - Mentions preferring a [place]-speaking doctor for improved communication and care. - Discusses family dynamics affecting me ntal state. - Expresses dissatisfaction with [facility] doctors' communication regarding weight management. - Reports feeling pressured by weight lo ss expectations. Family History: - Loss of multiple family members noted, contributing to depressive symptoms. - No specific hereditary medical conditi ons were discussed. Health Maintenance - Colonoscopy last performed in October 27, next due in October 2028. - Mammogram conducted in May of the previous year, next due in May of the current year. - Recent lab work in February showed Vitamin D and B1 deficiencies, normal CBC, electrolytes, and kidney function. - Cholesterol controlled with LDL at 111 . [place] of Care - Reference to seeking comfort and under standing with a [place]-speaking physician for weight management at [place], under Dr. Rodriguez's care. Medications - Sertraline for depression and anxiety. - Alprazolam for anxiety. - Zolpidem for insomnia. - Lisinopril for hypertension. - Hydrochlorothiazide for hypertension. - Omeprazole for gastroesophageal reflux disease. - Breo Inhaler for respiratory managemen t (presumably asthma or COPD management). Diagnostic results - Labs: - Vitamin D: Low. - Vitamin B1: Low. - Cholesterol: LDL recorded at 111. - CBC, electrolytes, kidney function: Wi thin normal limits. Patient Instructions - Continue current medications as prescr ibed. - Schedule mammogram for May screening routine. - Follow up in October 2028 for the next c olonoscopy. - Call Dr. Rodriguez at [facility] for a weigh t management appointment. - Consider therapy for addressing depres adry and loss. - Begin vitamin D and B1 supplementation to address deficiencies as recommended. Review of Systems - General: No fever no chills - Neurological: No headaches no dizzin ess - Ear nose throat: No sore throat no hearing difficulty no ear pain - Cardiovascular: No syncope, no chest pain, no palpitations - Gastrointestinal: No nausea vomiting or diarrhea - Endocrine: No polyuria polydipsia no heat intolerance - Genitourinary: No dysuria - Skin: No new complaints Physical Exam General: Cooperative, healthy appearing, comfortable, no acute distress Orientation: Patient oriented x3 Head: Normal to inspection Ears: Within normal limit visually Nose: Normal external nose present Face and sinus: Normal facial exam Eyes: Appearance normal, extraocular movement intact pupils reactive Neck: Normal visual inspection and supple Respiratory: Normal respiratory effort and able to speak in complete sentences. Clear to auscultation, no stridor Cardiovascular: S1 and S2 RRR GI: Normal to inspection. Soft to palpation and nontender Skin: Turgor normal, no acute findings Neuro: Patient oriented x3, motor sensory intact, balance intact, tandem pass Extremities: Normal to inspection, right arm with limited range of motion unable to lift above head 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) Alcohol intake: current Alcohol intake frequency: holidays/special occasions only Patient Tobacco Use Status: Never used Tobacco e-Cigarette/Vaping Use: Never Used Second Hand Smoke Exposure: No Substance Use Type: Marijuana service: No Current occupational status: disabled Cognitive needs: No Hearing needs: No Vision needs: No Female Reproductive History Menstrual Age of Menarche: 14 Questionnaire Thrive Questionnaire Date Thrive assessed: 09/30/24 I am a: Patient What is your living situation today?: I choose not to answer this question Within the past 12 months, did the food you bought not last and you didn't have the money to get more?: I choose not to answer this question Within the past 12 months, did you worry whether your food would run out before you got money to buy more?: I choose not to answer this question Do you have trouble paying for medicines?: I choose not to answer this question Do you have trouble getting transportation to medical appointments?: I choose not to answer this question Do you have trouble paying your heating and electricity bill?: I choose not to answer this question Do you have trouble taking care of your child, family member or friend?: I choose not to answer this question Do you have trouble with day-to-day activities such as bathing, preparing meals, shopping, managing finances, etc.?: I choose not to answer this question Are you currently unemployed and looking for a job?: I choose not to answer this question Are you interested in more education?: I choose not to answer this question Please select the resources that you would like help with: None Currently or been in a relationship where the following occur: I choose not to answer THRIVE Score: 0 MANUELA-7 AMB Questionnaire MANUELA-7 Date MANUELA - 7 assessed: 09/30/24 Source: Developed by Drs. Agustin uLcas, Katie Brennan, Christopher Cee and colleagues, with an educational jean pierre from [employer]. Physical exam (Primary Care) Vital Signs: Last Vital Signs Pulse 72 03/29/25 14:26 BP 140/80 H 03/29/25 14:26 Pulse Ox 97 03/29/25 14:26 BMI result Body Mass Index 44.8 Tobacco/Smoking Status: Tobacco use Status Tobacco use date assessed 01/17/25 03/29/25 14:30 Patient Tobacco Use Status Never used Tobacco 03/29/25 14:30 Tobacco use type 10/27/24 11:51 e-Cigarette/Vaping Use Never Used 03/29/25 14:30 Thrive Assessment: Date of Thrive Assessment Date Thrive assessed 09/30/24 03/29/25 14:30 Currently or been in a relationship where the following occur: I choose not to answer Coding Level of Care Code Est Pt Level 4 (15169) Est Pt Prev Care 40-64y(96458) Diagnoses Morbid obesity due to excess calories E66.01 Recurrent major depressive disorder, in partial remission F33.41 Active/Remission status: in partial remission Encounter for general adult medical examination with abnormal findings Z00.01 Difficulty sleeping G47.9 Adhesive capsulitis of left shoulder M75.02 Laterality: left Gastroesophageal reflux disease without esophagitis K21.9 Esophagitis presence: without esophagitis Lipid disorder E78.9 Hypertension, essential I10 Anxiety, generalized F41.1 Assessment & Plan Assessment & Plan (1) Morbid obesity due to excess calories: Code(s): E66.01 - Morbid (severe) obesity due to excess calories Category: Medical (2) Major depression, recurrent: Code(s): F33.9 - Major depressive disorder, recurrent, unspecified Category: Medical Qualifiers: Active/Remission status: in partial remission Qualified Code(s): F33.41 - Major depressive disorder, recurrent, in partial remission (3) Encounter for general adult medical examination with abnormal findings: Code(s): Z00.01 - Encounter for general adult medical examination with abnormal findings Category: Medical (4) Difficulty sleeping: Code(s): G47.9 - Sleep disorder, unspecified Category: Medical (5) Frozen shoulder syndrome: Code(s): M75.00 - Adhesive capsulitis of unspecified shoulder Category: Medical Qualifiers: Laterality: left Qualified Code(s): M75.02 - Adhesive capsulitis of left shoulder (6) GERD (gastroesophageal reflux disease): Code(s): K21.9 - Gastro-esophageal reflux disease without esophagitis Category: Medical Qualifiers: Esophagitis presence: without esophagitis Qualified Code(s): K21.9 - Gastro-esophageal reflux disease without esophagitis (7) Lipid disorder: Code(s): E78.9 - Disorder of lipoprotein metabolism, unspecified Category: Medical (8) Hypertension, essential: Code(s): I10 - Essential (primary) hypertension Category: Medical (9) Anxiety, generalized: Code(s): F41.1 - Generalized anxiety disorder Category: Medical Plan History of Present Illness The patient is a 60-year-old female presenting with depression management. And physical exam Major Depressive Disorder: - The patient reports a significant change in mood over the summer, initially attributed to menopause. - Symptoms include lack of motivation, social withdrawal, prolonged periods spent in her room, persistent tiredness, and a significant loss of family members contributing to her low mood. - She acknowledges feeling depressed but is unsure about seeking additional help. - The decline in mental health seems influenced by bereavement and possible dissatisfaction with healthcare provider interactions. Vitamin D Deficiency: - Identified via lab results; the patient noted her tiredness might be related to this deficiency. Vitamin B1 (Thiamine) Deficiency: - Lab results indicated low levels. - Patient unfamiliar with the deficiency until explained during the visit. Essential Hypertension: - The patient receives treatment with lisinopril and hydrochlorothiazide for blood pressure management. - No new symptoms reported concerning hypertension. Insomnia: - Patient is on Zolpidem for sleep management. Generalized Anxiety Disorder: - The patient is currently prescribed Sertraline and Alprazolam, indicating existing anxiety management. Gastroesophageal Reflux Disease (GERD): - Ongoing treatment with Omeprazole suggests controlled GERD symptoms. Possible Obesity: - Concerns raised during weight management discussions. - Encountered stress due to a prior doctor's recommendation to lose weight quickly, contributing to depressive symptoms. Medical History: - Major Depressive Disorder with past and ongoing treatment. - Essential Hypertension managed with antihypertensive medications. - Generalized Anxiety Disorder managed with Sertraline and Alprazolam. - Insomnia treated with Zolpidem. - Gastroesophageal Reflux Disease managed with Omeprazole. - Vitamin D Deficiency. - Vitamin B1 Deficiency. Social History: - Reports significant family losses, affecting mental health, including a cousin, brother, and multiple other relatives. - Mentions preferring a [place]-speaking doctor for improved communication and care. - Discusses family dynamics affecting mental state. - Expresses dissatisfaction with previous doctors' communication regarding weight management. - Reports feeling pressured by weight loss expectations. Family History: - Loss of multiple family members noted, contributing to depressive symptoms. - No specific hereditary medical conditions were discussed. Health Maintenance - Colonoscopy last performed in October 2023, next due in October 2028. - Mammogram conducted in May of the previous year, next due in May of the current year. - Recent lab work in February showed Vitamin D and B1 deficiencies, normal CBC, electrolytes, and kidney function. - Cholesterol controlled with LDL at 111. [place] of Care - Reference to seeking comfort and understanding with a [place]-speaking physician for weight management at [place], under Dr. Rodriguez's care. Medications - Sertraline for depression and anxiety. - Alprazolam for anxiety. - Zolpidem for insomnia. - Lisinopril for hypertension. - Hydrochlorothiazide for hypertension. - Omeprazole for gastroesophageal reflux disease. - Breo Inhaler for respiratory management (presumably asthma or COPD management). Diagnostic results - Labs: - Vitamin D: Low. - Vitamin B1: Low. - Cholesterol: LDL recorded at 111. - CBC, electrolytes, kidney function: Within normal limits. Patient Instructions - Continue current medications as prescribed. - Schedule mammogram for May to maintain screening routine. - Follow up in October 2028 for the next colonoscopy. - Call Dr. Rodriguez at [place] for a weight management appointment. - Consider therapy for addressing depression and loss. - Begin vitamin D and B1 supplementation to address deficiencies as recommended. Orders: Referrals Bariatric Surgery Referral E66.01 - Morbid (severe) obesity due to excess calories Medications: New thiamine HCl (vitamin B1) 50 mg PO DAILY 90 tabs 3RF cholecalciferol (vitamin D3) 25 mcg PO DAILY 90 caps 1RF 90 days Refilled fluticasone furoate-vilanterol 100-25 mcg/dose (Breo Ellipta) 1 inh inhalation DAILY 60 ea 6RF sertraline 200 mg (2 x 100 mg) PO DAILY 180 caps 1RF F41.1 - Generalized an xiety disorder zolpidem 10 mg PO BEDTIME 30 tabs 2RF 30 days G47.9 - Sleep disorder, unspecified alprazolam 0.25 mg PO DAILY PRN 30 tabs 2RF anxiety 30 days aspirin 81 mg PO DAILY 90 tabs 3RF 90 days lisinopril-hydrochlorothiazide 20-25 mg 1 tab PO DAILY 90 tabs 1RF 90 days I10 - Essential (primary) hypertension omeprazole 20 mg PO DAILY 90 caps 1RF 90 days K21.9 - Gastro-esophageal reflux disease without esophagitis
[2025-03-29 14:26] VITALS: BP 140/80; PULSE 72; O2SAT 97; BMI 44.8
--- OUTSIDE RECORDS SUMMARY | 2025-03-29 15:20 | XMS_ITS | Clinical Summary ---
Author Organization [facility] ity Address [address] [place] [address] Care Team Providers Care Finish Specialist Name Role Phone Unavailable Primary Care [...]
== END 2025-03-29 16:39 | disposition home or self-care (01) ==
LOC: HO.HMCC 14:21
PROVIDERS: PCP Internal Medicine; Visit Provider Internal Medicine
DX: Z00.01 Encounter for general adult medical examination with abnormal findings (principal); E66.01 Morbid (severe) obesity due to excess calories; Z68.41 Body mass index [BMI] 40.0-44.9, adult; G47.9 Sleep disorder, unspecified; F33.41 Major depressive disorder, recurrent, in partial remission; M75.02 Adhesive capsulitis of left shoulder; K21.9 Gastro-esophageal reflux disease without esophagitis; E78.9 Disorder of lipoprotein metabolism, unspecified; I10 Essential (primary) hypertension; F41.1 Generalized anxiety disorder

== ENCOUNTER → 2025-03-29 14:20 | Outpatient (BNVA) | payer OTHER, SELFPAY | PROVIDERS: PCP Internal Medicine; Visit Provider Internal Medicine | DX: Z00.01 Encounter for general adult medical examination with abnormal findings (principal); E55.9 Vitamin D deficiency, unspecified; I10 Essential (primary) hypertension; E51.9 Thiamine deficiency, unspecified; G47.00 Insomnia, unspecified; F41.1 Generalized anxiety disorder; K21.9 Gastro-esophageal reflux disease without esophagitis; E66.01 Morbid (severe) obesity due to excess calories; F33.41 Major depressive disorder, recurrent, in partial remission; M75.02 Adhesive capsulitis of left shoulder | CPT/HCPCS: 99212; 99396 ==

== ENCOUNTER 2025-04-05 13:14 | Outpatient (REF) | payer OTHER, SELFPAY ==
--- NOTE | ~2025-04-05 | MR_ITS ---
CLINICAL HISTORY: M25.311 - Other instability, right shoulder Exam: MRI of the right shoulder without intravenous contrast. Comparison: Radiographs January 17, 2025. Findings: Metal artifact due to suture anchors within the right humeral head. The humeral head is high-riding with only 2.3 mm of space between the humeral head in the acromion. There is marked thinning of the supraspinatus tendon as it courses between the humeral head and acromion. There is suggestion of a full-thickness supraspinatus tendon tear measuring 5 x 9 mm in size. However, no tendon retraction or muscle atrophy of the supraspinatus is seen. Moderate tendinopathy of the distal infraspinatus without tendon tear. Fatty atrophy of the teres minor muscle without tendon abnormality or mass within the quadrilateral space. Subscapularis tendon is intact. Moderate degenerative change of the glenohumeral joint. No discrete labral tear is seen. The tendon of the long head of the biceps is appropriately positioned within the bicipital groove. Type 2 acromion. Severe AC joint DJD. Impression: 1. Postsurgical changes above with metal artifact from the patient's suture anchors. 2. High-riding humeral head with likely small full-thickness supraspinatus tendon tear. 3. Glenohumeral joint and AC joint DJD. This document has been electronically signed by: Lance Jo MD on 04/06/2025 08:56:03
--- OUTSIDE RECORDS SUMMARY | 2025-04-05 13:55 | XMS_ITS | Clinical Summary ---
Author Organization [facility] Address [address] [place] [address] Care Team Providers Care Vascular Surgeon Name Role Phone Unavailable Primary Care Provider [...]
== END 2025-04-05 13:15 | disposition home or self-care (01) ==
LOC: HO.MRI 13:14
PROVIDERS: PCP Internal Medicine; Visit Provider Orthopaedic Surgery
DX: M25.311 Other instability, right shoulder (principal)
CPT/HCPCS: 73221

== ENCOUNTER → 2025-04-05 13:14 | Outpatient (BNV) | payer OTHER, SELFPAY | PROVIDERS: PCP Internal Medicine; Visit Provider Radiology Diagnostic Radiology | DX: M19.011 Primary osteoarthritis, right shoulder (principal) | CPT/HCPCS: 73221 ==

== ENCOUNTER 2025-04-18 13:08 | Outpatient (AMB) | payer OTHER, SELFPAY ==
--- NOTE | 2025-04-18 13:15 | A.OFFPC_ITS ---
Vital Signs 04/18/25 13:16 Height 5 ft 2 in Weight 245 lb 5 oz BMI 44.9 BP 138/80 Blood Pressure Location Lt brachial Position Sitting Pulse 69 Pulse Source Pulse Oximeter Pulse Oximetry (%) 98 Oxygen Delivery Method Room Air Intake Visit Reasons: 3 months f/up Allergies No Known Allergies Allergy (Verified 04/18/25 13:18) Medication List - Last Reconciled 04/18/25 by Kinjal Tavares MD acetaminophen ER (Tylenol Arthritis Pain) 650 mg PO Q12H PRN 90 days albuterol sulfate 90 mcg/actuation 2 puffs inhalation Q4-6H PRN alprazolam 0.25 mg PO DAILY PRN 30 days aspirin 81 mg PO DAILY 90 days cholecalciferol (vitamin D3) 25 mcg PO DAILY 90 days fluticasone furoate-vilanterol 100-25 mcg/dose (Breo Ellipta) 1 inh inhalation DAILY lisinopril-hydrochlorothiazide 20-25 mg 1 tab PO DAILY 90 days omeprazole 20 mg PO DAILY 90 days sertraline 200 mg (2 x 100 mg) PO DAILY [Shower chair with back As directed] thiamine HCl (vitamin B1) 50 mg PO DAILY valacyclovir 1,000 mg PO DAILY zolpidem 10 mg PO BEDTIME 30 days Tobacco use date assessed: 01/17/25 Dental Screening Dental Screen Date: 01/17/25 HPI 3 months f/up HPI Details History The patient is a 60-year-old female presenting with constipation. and regular 3 M f/u for med refill Constipation: - The patient experiences constipation p rimarily due to medication intake. - She reports difficulty with bowel move ments when taking certain medications, which results in bloating and exacerbation of hemorrhoids. - The constipation is managed intermitte ntly with various cvhm-ody-kxsrsqg products, including stool softeners and laxatives like Plecanantide, which is reportedly effective for her but not prescribed by a specialist. - The patient drinks approximately 8 bot tles of water daily and includes fruits and vegetables like green beans in her diet in an effort to alleviate constipation. - She has also tried other products such as Senokot, but prefers to avoid using Milk of Magnesia. Medical History: - Anxiety disorder - Restless leg syndrome - Leg movement disorder - Difficulty sleeping - Asthma, stable with Breo inhaler - Vitamin D deficiency - Essential hypertension Medications: - Alprazolam 0.25 mg at night for anxiet y disorder - Zolpidem 10 mg for difficulty sleeping - Sertraline 200 mg daily for anxiety di sorder - Omeprazole 20 mg for GERD - Lisinopril-hydrochlorothiazide 20-25 m g for hypertension - Breo inhaler for asthma - Vitamin D supplementation for vitamin D deficiency Social History: - The patient reports being morbidly obe se with a BMI of 44.9. - She mentions the regular intake of setphanie er (about 8 bottles a day) and the avoidance of soda and other beverages. - Consumes fruits and vegetables, includ ing green beans, for fiber. Problem List - Anxiety disorder - Restless leg syndrome - Insomnia - Constipation - Hemorrhoids - Essential hypertension - Asthma - Vitamin D deficiency Diagnostic results - Labs done in February reviewed and noted a s stable Patient Instructions - Take prescribed medication for constip ation every night as directed. Senokot S2 tablets - Drink plenty of water and consume high -fiber foods such as fruits and green vegetables regularly. - Monitor bowel movements and adjust the dosage to every other day if diarrhea occurs. - Avoid becoming very constipated before taking medication. - Ensure next appointment is scheduled. In three-month Alprazolam and zolpidem script sent for next three-month Review of Systems General: No fever no chills neurological: No headaches no dizziness ear nose throat: No sore throat no hearing difficulty no ear pain cardiovascular: No syncope, no chest pain, no palpitations gastrointestinal: No nausea vomiting or diarrhea endocrine: No polyuria polydipsia no heat intolerance genitourinary: No dysuria skin: No new complaints Physical Exam general: No acute distress, morbidly obese with BMI of 44.9 HEENT: No acute findings neck: Supple respiratory system: Able to talk in full sentences, no audible wheeze no stridor, asthma is stable with Breo inhaler cardiovascular: S1-S2 RRR gastrointestinal: No pain extremities: No new findings 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: Alert awake oriented x3 motor sensory intact skin: Normal turgor 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 home services: Yes ([employer]) Alcohol intake: current Alcohol intake frequency: holidays/special occasions only Patient Tobacco Use Status: Never used Tobacco e-Cigarette/Vaping Use: Never Used Second Hand Smoke Exposure: No Substance Use Type: Marijuana service: No Current occupational status: disabled Cognitive needs: No Hearing needs: No Vision needs: No Female Reproductive History Menstrual Age of Menarche: 14 Questionnaire Thrive Questionnaire Date Thrive assessed: 09/30/24 I am a: Patient What is your living situation today?: I choose not to answer this question Within the past 12 months, did the food you bought not last and you didn't have the money to get more?: I choose not to answer this question Within the past 12 months, did you worry whether your food would run out before you got money to buy more?: I choose not to answer this question Do you have trouble paying for medicines?: I choose not to answer this question Do you have trouble getting transportation to medical appointments?: I choose not to answer this question Do you have trouble paying your heating and electricity bill?: I choose not to answer this question Do you have trouble taking care of your child, family member or friend?: I choose not to answer this question Do you have trouble with day-to-day activities such as bathing, preparing meals, shopping, managing finances, etc.?: I choose not to answer this question Are you currently unemployed and looking for a job?: I choose not to answer this question Are you interested in more education?: I choose not to answer this question Please select the resources that you would like help with: None Currently or been in a relationship where the following occur: I choose not to answer THRIVE Score: 0 MANUELA-7 AMB Questionnaire MANUELA-7 Date MANUELA - 7 assessed: 09/30/24 Source: Developed by Darryl Manzoet B.W. Mika, Christopher Cee and colleagues, with an educational jean pierre from [employer]. Physical exam (Primary Care) Vital Signs: Last Vital Signs Pulse 69 04/18/25 13:16 BP 138/80 04/18/25 13:16 Pulse Ox 98 04/18/25 13:16 Oxygen Delivery Method Room Air 04/18/25 13:16 BMI result Body Mass Index 44.9 Tobacco/Smoking Status: Tobacco use Status Tobacco use date assessed 01/17/25 04/18/25 13:18 Patient Tobacco Use Status Never used Tobacco 04/18/25 13:18 Tobacco use type 10/27/24 11:51 e-Cigarette/Vaping Use Never Used 04/18/25 13:18 Thrive Assessment: Date of Thrive Assessment Date Thrive assessed 09/30/24 04/18/25 13:18 Currently or been in a relationship where the following occur: I choose not to answer Coding Level of Care Code Est Pt Level 4 (05095) Complex EM visit Add On G2211 Diagnoses Hypertension, essential I10 Morbid obesity due to excess calories E66.01 Recurrent major depressive disorder, in partial remission F33.41 Active/Remission status: in partial remission Difficulty sleeping G47.9 Adhesive capsulitis of left shoulder M75.02 Laterality: left Gastroesophageal reflux disease without esophagitis K21.9 Esophagitis presence: without esophagitis Lipid disorder E78.9 Anxiety, generalized F41.1 Assessment & Plan Assessment & Plan (1) Hypertension, essential: Code(s): I10 - Essential (primary) hypertension Category: Medical (2) Morbid obesity due to excess calories: Code(s): E66.01 - Morbid (severe) obesity due to excess calories Category: Medical (3) Major depression, recurrent: Code(s): F33.9 - Major depressive disorder, recurrent, unspecified Category: Medical Qualifiers: Active/Remission status: in partial remission Qualified Code(s): F33.41 - Major depressive disorder, recurrent, in partial remission (4) Difficulty sleeping: Code(s): G47.9 - Sleep disorder, unspecified Category: Medical (5) Frozen shoulder syndrome: Code(s): M75.00 - Adhesive capsulitis of unspecified shoulder Category: Medical Qualifiers: Laterality: left Qualified Code(s): M75.02 - Adhesive capsulitis of left shoulder (6) GERD (gastroesophageal reflux disease): Code(s): K21.9 - Gastro-esophageal reflux disease without esophagitis Category: Medical Qualifiers: Esophagitis presence: without esophagitis Qualified Code(s): K21.9 - Gastro-esophageal reflux disease without esophagitis (7) Lipid disorder: Code(s): E78.9 - Disorder of lipoprotein metabolism, unspecified Category: Medical (8) Anxiety, generalized: Code(s): F41.1 - Generalized anxiety disorder Category: Medical Plan History The patient is a 60-year-old female presenting with constipation. and regular 3 M f/u for med refill Constipation: - The patient experiences constipation primarily due to medication intake. - She reports difficulty with bowel movements when taking certain medications, which results in bloating and exacerbation of hemorrhoids. - The constipation is managed intermittently with various czuf-rfj-fwncrzu pr oducts, including stool softeners and laxatives like Plecanantide, which is reportedly effective for her but not prescribed by a specialist. - The patient drinks approximately 8 bottles of water daily and includes fruits and vegetables like green beans in her diet in an effort to alleviate constipation. - She has also tried other products such as Senokot, but prefers to avoid using Milk of Magnesia. Medical History: - Anxiety disorder - Restless leg syndrome - Leg movement disorder - Difficulty sleeping - Asthma, stable with Breo inhaler - Vitamin D deficiency - Essential hypertension Medications: - Alprazolam 0.25 mg at night for anxiety disorder - Zolpidem 10 mg for difficulty sleeping - Sertraline 200 mg daily for anxiety disorder - Omeprazole 20 mg for GERD - Lisinopril-hydrochlorothiazide 20-25 mg for hypertension - Breo inhaler for asthma - Vitamin D supplementation for vitamin D deficiency Social History: - The patient reports being morbidly obese with a BMI of 44.9. - She mentions the regular intake of water (about 8 bottles a day) and the avoidance of soda and other beverages. - Consumes fruits and vegetables, including green beans, for fiber. Problem List - Anxiety disorder - Restless leg syndrome - Insomnia - Constipation - Hemorrhoids - Essential hypertension - Asthma - Vitamin D deficiency Diagnostic results - Labs done in February reviewed and noted as stable Patient Instructions - Take prescribed medication for constipation every night as directed. Senokot S2 tablets - Drink plenty of water and consume high-fiber foods such as fruits and green vegetables regularly. - Monitor bowel movements and adjust the dosage to every other day if diarrhea occurs. - Avoid becoming very constipated before taking medication. - Ensure next appointment is scheduled. In three-month Alprazolam and zolpidem script sent for next three-month Medications: New sennosides-docusate sodium 8.6-50 mg (Senokot-S) 2 tab-caps (2 x 8.6-50 mg) PO BEDTIME 180 tabs 0RF constipation 90 days K59.03 - Drug induced constipation, T40.2X5A - Adverse effect of other opioids, initial encounter Refilled alprazolam 0.25 mg PO DAILY PRN 30 tabs 2RF anxiety 30 days zolpidem 10 mg PO BEDTIME 30 tabs 2RF 30 days G47.9 - Sleep disorder, unspecified
[2025-04-18 13:16] VITALS: BP 138/80; PULSE 69; O2SAT 98; BMI 44.9
--- OUTSIDE RECORDS SUMMARY | 2025-04-18 15:28 | XMS_ITS | Clinical Summary ---
Author Organization [address] [facility] Address [address] [place] [address] Phone Care Team Providers Care Improvement Coordinator Name Role Phone Unavailable Primary Care Provider Unavailabl e Social History Tobacco Use Types Packs/Day Years Used Date Smoking Tobacco: Never Assessed Comments Unknown Sex and Gender Information Value Date Recorded Sex Assigned at Not on file Legal Sex Female 4:44 PM EDT Gender Identity Not on file Sexual Orientation Not on file Plan of Treatment Upcoming Encounters Date Type Department Care Team ([facility] st Contact Info) Description 04/24/2025 8:30 AM EDT Office Visit Bariatric Surgery [facility] [address] [place] [address] Xochitl Gabriel PA [address] [place] [address] Health Maintenance Due Date Last Done Comments [...] HIV Screening 03/11/2024 Hepatitis C Screening 03/11/2024 Medicare Annual Wellness Visit 03/11/2024 Social Influencers of Health Screening 03/11/2024 Depression Screening 08/10/2024 COVID-19 Vaccine ( - 2023-2 5 season) 2025 Influenza Vaccine (#1) 2025 RSV Immunization Adult [...] on patient's age to complete this topic Insurance [id number] Member Subscriber Plan / Payer (Ef fective 2025-Present) Name:Dania Bah Relation to Subscriber:Self Name:Dania Bah Payer ID:[id number] Group ID:Not on file Type:Not on file Address: [place] [address] [address] [phone]
== END 2025-04-18 13:49 | disposition home or self-care (01) ==
LOC: HO.HMCC 13:08
PROVIDERS: PCP Internal Medicine; Visit Provider Internal Medicine
DX: I10 Essential (primary) hypertension (principal); E66.01 Morbid (severe) obesity due to excess calories; Z68.41 Body mass index [BMI] 40.0-44.9, adult; F33.41 Major depressive disorder, recurrent, in partial remission; G47.9 Sleep disorder, unspecified; M75.02 Adhesive capsulitis of left shoulder; K21.9 Gastro-esophageal reflux disease without esophagitis; E78.9 Disorder of lipoprotein metabolism, unspecified; F41.1 Generalized anxiety disorder

== ENCOUNTER → 2025-04-18 13:08 | Outpatient (BNVA) | payer OTHER, SELFPAY | PROVIDERS: PCP Internal Medicine; Visit Provider Internal Medicine | DX: I10 Essential (primary) hypertension (principal); E66.01 Morbid (severe) obesity due to excess calories; F33.41 Major depressive disorder, recurrent, in partial remission; G47.9 Sleep disorder, unspecified; M75.02 Adhesive capsulitis of left shoulder; K21.9 Gastro-esophageal reflux disease without esophagitis; E78.9 Disorder of lipoprotein metabolism, unspecified; F41.1 Generalized anxiety disorder; K59.03 Drug induced constipation; T40.2X5A Adverse effect of other opioids, initial encounter; Y92.9 Unspecified place or not applicable | CPT/HCPCS: 99212 ==

== ENCOUNTER 2025-05-11 13:41 | Outpatient (AMB) | payer OTHER, SELFPAY ==
[2025-05-11 13:58] VITALS: BMI 44.8
--- NOTE | 2025-05-11 13:58 | A.OFFVIS_ITS ---
Vital Signs 05/11/25 13:58 Height 5 ft 2 in Weight 245 lb BMI 44.8 Intake Visit Reasons: OV- Right Shoulder MRI Review, 04/06/25. Intake Note: Dania is a 60 year old female who presents with complaints of progressively worsening right shoulder pain and weakness. The patient states that she underwent right shoulder surgery by Dr. Rose several years ago. She ini tially did well following that surgery. She states that she re-injured her shoulder approximately 1 year ago while lifting a heavy object. Since that time she has had difficulty lifting her right hand above shoulder height. She has been to formal physical therapy which aggravated her pain. She has also tried Tylenol and anti-inflammatory medicines which gave her minimal relief. At this point her right shoulder pain and weakness or interfering with her activities of daily living and her ability to sleep well through the night. She has failed the last 6 weeks of conservative treatment. Allergies No Known Allergies Allergy (Verified 05/11/25 14:01) Medication List - Last Reconciled 05/11/25 by Geoffrey Quintanilla MD acetaminophen ER (Tylenol Arthritis Pain) 650 mg PO Q12H PRN 90 days albuterol sulfate 90 mcg/actuation 2 puffs inhalation Q4-6H PRN alprazolam 0.25 mg PO DAILY PRN 30 days aspirin 81 mg PO DAILY 90 days cholecalciferol (vitamin D3) 25 mcg PO DAILY 90 days fluticasone furoate-vilanterol 100-25 mcg/dose (Breo Ellipta) 1 inh inhalation DAILY lisinopril-hydrochlorothiazide 20-25 mg 1 tab PO DAILY 90 days omeprazole 20 mg PO DAILY 90 days sennosides-docusate sodium 8.6-50 mg (Senokot-S) 2 tab-caps (2 x 8.6-50 mg) PO BEDTIME 90 days sertraline 200 mg (2 x 100 mg) PO DAILY [Shower chair with back As directed] thiamine HCl (vitamin B1) 50 mg PO DAILY valacyclovir 1,000 mg PO DAILY zolpidem 10 mg PO BEDTIME 30 days [facility] Medical History DJD (degenerative joint disease) Sleep apnea Morbid obesity Asthma Elevated cholesterol GERD (gastroesophageal reflux disease) Vertigo Anxiety Depression HTN (hypertension) COVID-19 Surgical History Hx of cystoscopy H/O colonoscopy Hx of tubal ligation H/O shoulder surgery Hx of cholecystectomy Family History Mother Diabetes Sister Diabetes HTN (hypertension) Colon cancer Paternal Uncle Colon cancer Social History Household Members: Significant Other Housing: House Do you presently have visiting nurse or other home services: Yes ([employer]) Alcohol intake: current Alcohol intake frequency: holidays/special occasions only Patient Tobacco Use Status: Never used Tobacco e-Cigarette/Vaping Use: Never Used Second Hand Smoke Exposure: No Substance Use Type: Marijuana service: No Current occupational status: disabled Cognitive needs: No Hearing needs: No Vision needs: No Female Reproductive History Menstrual Age of Menarche: 14 Physical Exam Vital Signs: BMI result Body Mass Index 44.8 Extrem Other: Right shoulder examination shows decreased range of motion when compared to her left shoulder, 3/5 strength with supraspinatus testing, positive impingement signs, no instability Results Reviewed Results Reviewed: MRI of the patient's right shoulder shows a large recurrent rotator cuff tear Assessment & Plan Assessment & Plan (1) Rotator cuff insufficiency of right shoulder: Code(s): M25.311 - Other instability, right shoulder Category: Medical Plan Dania presents with recurrent right shoulder pain and weakness due to a large recurrent rotator cuff tear. Based on the size of the tear I am not sure that the tear is reparable at this point. The patient may require reverse total shoulder replacement surgery. Thus, I will have her evaluated by Dr. Rose to further discuss her surgical treatment options. She will continue with her yfteh-cj-mlgntt exercises in the meantime to prevent stiffness. I spent 20 minutes in reviewing the patient's records and imaging studies, seeing the patient and documenting in the medical record. Coding Level of Care Code Est Pt Level 3 (56312) Complex EM visit Add On G2211 Diagnoses Rotator cuff insufficiency of right shoulder M25.311
--- OUTSIDE RECORDS SUMMARY | 2025-05-11 15:13 | XMS_ITS | Clinical Summary ---
Author Organization [address] [facility] Address [address] [place] [address] Phone Care Team Providers Care Warp Bleaching Vat Tender Name Role Phone Unavailable Primary Care Provider [...] patient's age to complete this topic Insurance [employer] Member Subscriber Plan / Payer (Ef fective 2024-Present) Name:Dania Bah Relation to Subscriber:Self Name:Dania Bah Payer ID:[id number] Group ID:Not on file Type:Not on file Address: [facility] [address] [id number]
== END 2025-05-11 14:11 | disposition home or self-care (01) ==
LOC: HO.HOS 13:41
PROVIDERS: PCP Internal Medicine; Visit Provider Orthopaedic Surgery
DX: M25.311 Other instability, right shoulder (principal)
CPT/HCPCS: 99213; G2211

== ENCOUNTER → 2025-05-11 13:41 | Outpatient (BNVA) | payer OTHER, SELFPAY | PROVIDERS: PCP Internal Medicine; Visit Provider Orthopaedic Surgery | DX: M25.311 Other instability, right shoulder (principal) | CPT/HCPCS: 99212 ==

== ENCOUNTER 2025-06-12 14:07 | Outpatient (AMB) | payer OTHER, SELFPAY ==
[2025-06-12 14:11] VITALS: BMI 44.8
--- NOTE | 2025-06-12 14:11 | MHC.OFFVIS ---
Vital Signs 06/12/25 14:11 Height 5 ft 2 in Weight 245 lb BMI 44.8 Intake Visit Reasons: OV - Discuss Right TSA - Per Dwight Intake Note: Dania is a 60 year old right hand dominant female who presents today for a follow up of her Left Shoulder. She was last seen with Dr Quintanilla who recommended that she see us to discuss a TSA. Hx of Right RTC Repair in 2018 with NE. Allergies No Known Allergies Allergy (Verified 06/17/25 10:23) HPI HPI OV - Discuss Right TSA - Per Dwight: Details: Dania is a 60 year old right hand dominant female who presents today for a follow up of her Left Shoulder. She was last seen with Dr Quintanilla who recommended that she see us to discuss a TSA. Hx of Right RTC Repair in 2018 with NE. She describes doing well for a few years but over the last several years she has had a harder time abducting her right arm. She states it is not so much pain that bothers her but lack of ability to raise her right hand above shoulder level. [facility] Medical History DJD (degenerative joint disease) Sleep apnea Morbid obesity Asthma Elevated cholesterol GERD (gastroesophageal reflux disease) Vertigo Anxiety Depression HTN (hypertension) COVID-19 Surgical History Hx of cystoscopy H/O colonoscopy Hx of tubal ligation H/O shoulder surgery Hx of cholecystectomy Family History Mother Diabetes Sister Diabetes HTN (hypertension) Colon cancer Paternal Uncle Colon cancer Social History Household Members: Significant Other Housing: House Do you presently have visiting nurse or other home services: Yes ([facility]) Alcohol intake: current Alcohol intake frequency: holidays/special occasions only Patient Tobacco Use Status: Never used Tobacco e-Cigarette/Vaping Use: Never Used Second Hand Smoke Exposure: No Substance Use Type: Marijuana service: No Current occupational status: disabled Cognitive needs: No Hearing needs: No Vision needs: No Female Reproductive History Menstrual Age of Menarche: 14 Physical Exam Exam Exam: 30/70/120/L5 4-/5 EC Vital Signs: BMI result Body Mass Index 44.8 Results Reviewed Results Reviewed: I personally reviewed relevant radiographs. Radiographs demonstrate prior suture anchors I personally reviewed the MR images. Findings: Metal artifact due to suture anchors within the right humeral head. The humeral head is high-riding with only 2.3 mm of space between the humeral head in the acromion. There is marked thinning of the supraspinatus tendon as it courses between the humeral head and acromion. There is suggestion of a full-thickness supraspinatus tendon tear measuring 5 x 9 mm in size. However, no tendon retraction or muscle atrophy of the supraspinatus is seen. Moderate tendinopathy of the distal infraspinatus without tendon tear. Fatty atrophy of the teres minor muscle without tendon abnormality or mass within the quadrilateral space. Subscapularis tendon is intact. Moderate degenerative change of the glenohumeral joint. No discrete labral tear is seen. The tendon of the long head of the biceps is appropriately positioned within the bicipital groove. Type 2 acromion. Severe AC joint DJD. Impression: 1. Postsurgical changes above with metal artifact from the patient's suture anchors. 2. High-riding humeral head with likely small full-thickness supraspinatus tendon tear. 3. Glenohumeral joint and AC joint DJD. Assessment & Plan Assessment & Plan (1) Rotator cuff tear, right: Code(s): M75.101 - Unspecified rotator cuff tear or rupture of right shoulder, not specified as traumatic Category: Medical Plan: This is a 60-year-old with a long history of rotator cuff pathology. She underwent rotator cuff repair in 2018 and states she did well for a few years but slowly started worsening until the last year so when she has had difficulty abducting her arm. I discussed treatment options with her. She is pretty adamant that she does not want injections or physical therapy or surgery so it is difficult to understand how to help her. I reviewed her MRI and she has high-riding humeral head but there is no atrophy of the supraspinatus. There is significant artifact interference. There is likely a rotator cuff tear with posterior superior cuff atrophy. I think at this point given her age our options are revision rotator cuff repair versus arthroplasty. I think she is too young for arthroplasty and deconditioned. I discussed this with her. At this time she does not want to go through with any type of surgery given the recovery and she does not want to do physical therapy and she is not in pain so she thinks that she will live with it for now. If she develops pain or changes her mind she can return to see me. I explained the natural history of this condition. Coding Level of Care Code Est Pt Level 4 (50481) Diagnoses Rotator cuff tear, right M75.101
== END 2025-06-12 15:09 | disposition home or self-care (01) ==
LOC: HO.HOS 14:07
PROVIDERS: PCP Internal Medicine; Visit Provider Orthopaedic Surgery
DX: M75.101 Unspecified rotator cuff tear or rupture of right shoulder, not specified as traumatic (principal)
CPT/HCPCS: 99214

== ENCOUNTER → 2025-06-12 14:07 | Outpatient (BNVA) | payer OTHER, SELFPAY | PROVIDERS: PCP Internal Medicine; Visit Provider Orthopaedic Surgery | DX: M25.512 Pain in left shoulder (principal); M75.101 Unspecified rotator cuff tear or rupture of right shoulder, not specified as traumatic | CPT/HCPCS: 99212 ==

== ENCOUNTER 2025-06-17 09:31 | Outpatient (AMB) | payer OTHER, SELFPAY ==
--- OUTSIDE RECORDS SUMMARY | 2025-06-17 09:34 | XMS_ITS | Clinical Summary ---
Author Organization 175 [facility] Address [address] [place] [address] Phone Care Team Providers Care Food Crops Farm Hand Name Role Phone Unavailable Primary Care Provider [...] Last Done Comments Breast Cancer Screening 1966 Colorectal Cancer Screening: Colonoscopy 1966 DTaP,Tdap,and Td Vaccines (1 - Tdap) 1985 Hepatitis B Vaccines (1 of 3 - 19+ 3-dose series) 1985 Cervical Cancer Screening: P ap Smear 1987 Pneumococcal Vaccine: 50+ Ye ars (1 of 1 - PCV) 01/07/2016 Zoster Vaccines (1 of 2) 01/07/2016 HIV Screening 03/11/2024 Hepatitis C Screening 03/11/2024 Medicare Annual Wellness Visit 03/11/2024 Social Influencers of Health Screening 03/11/2024 Depression Screening 08/10/2024 COVID-19 Vaccine (1 - 2023-2 5 season) 2025 Influenza Vaccine [...] patient's age to complete this topic Insurance [employer] Member Subscriber Plan / Payer (Ef fective 2024-Present) Name:Dania Bah Relation to Subscriber:Self Name:Dania Bah Payer ID:[id number] Group ID:Not on file Type:Not on file Address: [facility] [address] [phone]
[2025-06-17 10:22] VITALS: BP 136/80; PULSE 76; O2SAT 97
--- NOTE | 2025-06-17 10:22 | AM.OFFWIN_ITS ---
Intake Vital Signs 06/17/25 10:22 Height 5 ft 2 in BP 136/80 Blood Pressure Location Lt brachial Position Sitting Pulse 76 Pulse Source Pulse Oximeter Pulse Oximetry (%) 97 Oxygen Delivery Method Room Air Intake Visit Reasons: EP-Vaginal bleeding after 3Y w/o Menses Patient Tobacco Use Status: Never used Tobacco Allergies No Known Allergies Allergy (Verified 06/17/25 10:23) Do you need a note to return to daycare/school/sports/work: No HPI HPI Comments History of Present Illness Details This is a 60-year-old female who presented to the walk-in clinic complaining of vaginal bleeding x3 days. Patient states she has not had a menstrual period for about 3 years. She states she started to develop lower abdominal and pelvic cramping as well as breast pain about 3 days ago and then developed very light vaginal bleeding. She states that she is going through about 2 pads a day and the pads are not saturated. She states that she feels as though the bleeding is gradually improving. She states that prior to 3 years ago, she was regular every month but then went 6 months without a period and then her period came back and she was regular every month but then went a year without her period and then her period came back and she was regular for a few months and she has now gone 3 years without a period prior to this. She denies any recent vaginal or abdominal trauma and denies any recent sexual activity. She denies any concern for sexually transmitted infections. She denies any urinary symptoms such as dysuria, urinary frequency, or urinary urgency. She denies any abnormal vaginal discharge. She does have occasional sweats but denies any fevers or chills and denies any weight loss. Her last Pap smear was in April of 2021, which was normal and she was seen by her supervisor boilermaking shop in November of 2024 and was told she does not need another Pap smear until April of 2026. 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) Alcohol intake: current Alcohol intake frequency: holidays/special occasions only Patient Tobacco Use Status: Never used Tobacco e-Cigarette/Vaping Use: Never Used Second Hand Smoke Exposure: No Substance Use Type: Marijuana service: No Current occupational status: disabled Cognitive needs: No Hearing needs: No Vision needs: No Female Reproductive History Menstrual Age of Menarche: 14 Review of Systems Const All systems reviewed & are unremarkable except as noted in HPI and below Reports no additional complaints Eyes Reports no additional complaints ENT Reports no additional complaints Card Reports no additional complaints Resp Reports no additional complaints GI Reports no additional complaints Reports no additional complaints Musc Reports no additional complaints Skin/Breast Reports system reviewed and no additional complaints, except as documented Neuro Reports no additional complaints Psych Reports no additional complaints Endo Reports no additional complaints Abisai/Lymph Reports no additional complaints Aller/Immun Reports no additional complaints Physical Exam Exam Exam: Vital signs reviewed. Constitutional: Non-toxic appearing. No acute distress. Well-developed and well-nourished. HEENT: Normocephalic and atraumatic. PERRLA/EOMI. Skin: Warm and dry. No rashes or lesions noted. Neck: Full and painless range of motion. No cervical lymphadenopathy. Cardio: Regular rate and rhythm. No murmurs, gallops, or rubs. No lower extremity edema. No JVD. Pulmonary: No respiratory distress. No accessory muscle usage. Clear to auscultation bilaterally without wheezing, crackles, or rhonchi. Gastrointestinal: Soft, nontender, and nondistended in all 4 quadrants. Normoactive bowel sounds in all 4 quadrants. Genitourinary: No CVA tenderness. Musculoskeletal: Normal range of motion in joints throughout the body. No deformity or other signs of injury. Neuro: Alert and oriented x4. Cranial nerves 2-12 grossly intact. No focal deficits appreciated. Psych: Normal mood and affect. Vital Signs: Last Vital Signs Pulse 76 06/17/25 10:22 BP 136/80 06/17/25 10:22 Pulse Ox 97 06/17/25 10:22 Oxygen Delivery Method Room Air 06/17/25 10:22 Assessment & Plan Assessment & Plan (1) Vaginal bleeding: Code(s): N93.9 - Abnormal uterine and vaginal bleeding, unspecified Plan 60-year-old female who presented to the walk-in clinic complaining of vaginal bleeding x3 days. Patient has gone 3 years without a menstrual period prior to this but she states that her current symptoms feel similar to when she would have her period with lower abdominal and pelvic cramping and breast tenderness. Her physical exam is benign and her vital signs are stable. I explained to the patient that it is possible this is a menstrual period and menstrual periods can be irregular during menopause; however, I am unable to rule out any structural abnormality or hyperplasia/carcinoma as we are unable to perform pelvic ultrasounds at the walk-in clinic. I encouraged the patient to follow up with her primary care physician as well as her supervisor boilermaking shop on Thursday if bleeding continues for further evaluation with possible ultrasound. Patient was instructed to proceed directly to the emergency room if she were to develop significant vaginal bleeding such as saturating a pad every 1-2 hours, worsening abdominal pain, or inability to tolerate oral intake. Patient verbalized understanding and she is in agreement the plan. Medications: New ibuprofen 600 mg PO Q8H PRN 20 tabs 0RF pain Coding Level of Care Code Est Pt Level 3 (72415) Diagnoses Vaginal bleeding N93.9
== END 2025-06-17 11:58 | disposition home or self-care (01) ==
LOC: HO.HMCWIC 09:31
PROVIDERS: PCP Internal Medicine; Visit Provider Physician Assistant Medical
DX: N93.9 Abnormal uterine and vaginal bleeding, unspecified (principal)

== ENCOUNTER → 2025-06-17 09:31 | Outpatient (BNVA) | payer OTHER, SELFPAY | PROVIDERS: PCP Internal Medicine; Visit Provider Physician Assistant Medical | DX: N64.4 Mastodynia (principal); N93.9 Abnormal uterine and vaginal bleeding, unspecified | CPT/HCPCS: 99212 ==

== ENCOUNTER 2025-06-30 13:40 | Outpatient (AMB) | payer OTHER, SELFPAY ==
[2025-06-30 13:45] VITALS: BP 130/80; PULSE 73; O2SAT 98; BMI 44.6
--- NOTE | 2025-06-30 13:45 | A.OFFPC_ITS ---
Vital Signs 06/30/25 13:45 Height 5 ft 2 in Weight 244 lb BMI 44.6 BP 130/80 Blood Pressure Location Lt brachial Position Sitting Pulse 73 Pulse Source Pulse Oximeter Pulse Oximetry (%) 98 Intake Visit Reasons: 3 MONTH FOLLOW UP Allergies No Known Allergies Allergy (Verified 06/30/25 13:49) Medication List - Last Reconciled 06/30/25 by Kinjal Tavares MD acetaminophen ER (Tylenol Arthritis Pain) 650 mg PO Q12H PRN 90 days albuterol sulfate 90 mcg/actuation 2 puffs inhalation Q4-6H PRN alprazolam 0.25 mg PO DAILY PRN 30 days aspirin 81 mg PO DAILY 90 days cholecalciferol (vitamin D3) 25 mcg PO DAILY 90 days fluticasone furoate-vilanterol 100-25 mcg/dose (Breo Ellipta) 1 inh inhalation DAILY ibuprofen 600 mg PO Q8H PRN lisinopril-hydrochlorothiazide 20-25 mg 1 tab PO DAILY 90 days omeprazole 20 mg PO DAILY 90 days sennosides-docusate sodium 8.6-50 mg (Senokot-S) 2 tab-caps (2 x 8.6-50 mg) PO BEDTIME 90 days sertraline 200 mg (2 x 100 mg) PO DAILY [Shower chair with back As directed] thiamine HCl (vitamin B1) 50 mg PO DAILY valacyclovir 1,000 mg PO DAILY zolpidem 10 mg PO BEDTIME 30 days Tobacco use date assessed: 01/17/25 Dental Screening Dental Screen Date: 01/17/25 HPI HPI Comments History of Present Illness Details History of Present Illness The patient is a 60 year old individual presenting for a 3-month follow-up appointment for medication refills, and evaluation of new-onset postmenopausal bleeding and vaginal itching. Postmenopausal bleeding: - The patient, who reports being postmen opausal for three years, experienced an episode of vaginal bleeding this month which lasted for three days. - The bleeding was described as not heav y, requiring about two pads per day, and was associated with cramping and pain. - Although the bleeding has now stopped, the patient continues to experience cramps. - The patient was prescribed ibuprofen f or the pain. Hypertension: - The patient is managed on lisinopril-h ydrochlorothiazide 20-25 mg. - Blood pressure reading today was 130/8 0 mmHg. Anxiety: - The patient takes sertraline 200 mg fo r anxiety. Insomnia: - The patient takes zolpidem 10 mg for s leep. Gastroesophageal Reflux Disease (GERD): - The condition is stable with omeprazol e 20 mg. Asthma: - The patient's asthma is stable with Br eo. Vaginitis: - The patient reports a new complaint of an itchy infection. Sleep Apnea: - The patient has a known diagnosis of s leep apnea and reports experiencing coughing and difficulty breathing at night. - The patient is non-adherent with the p rescribed CPAP machine, stating a dislike for it and difficulty sleeping with it, and instead sleeps with three pillows. Constipation: - The patient suffers from constipation. Vitamin D Deficiency: - The patient was found to be deficient in vitamin D and will take a supplement. Elevated liver enzymes: - Lab work from February showed mildly eleva winston liver enzymes. Medical History: - Hypertension - Anxiety - Insomnia - Gastroesophageal reflux disease (GERD) - Asthma - Constipation - Vitamin D deficiency - Sleep apnea, non-adherent with CPAP th erapy - Postmenopausal status, with amenorrhea for three years prior to current episode Medications: - Lisinopril-hydrochlorothiazide 20-25 m g for hypertension - Sertraline 200 mg for anxiety - Zolpidem 10 mg as needed for sleep - Omeprazole 20 mg for GERD - Breo for asthma - Vitamin D supplement for deficiency - Ibuprofen as needed for menstrual cram ping Social History: - The patient is non-adherent to CPAP th erapy for sleep apnea and sleeps with three pillows to help with breathing. Diagnostic Results: - Labs (February): CBC was within normal stahl its, kidney function was intact, electrolytes were stable, and sugar was stable. - Labs (February): Mildly elevated liver enz ymes were noted. - Labs (February): Diagnosed with vitamin D deficiency. - Imaging: The patient had a mammogram t . 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) Alcohol intake: current Alcohol intake frequency: holidays/special occasions only Patient Tobacco Use Status: Never used Tobacco e-Cigarette/Vaping Use: Never Used Second Hand Smoke Exposure: No Substance Use Type: Marijuana service: No Current occupational status: disabled Cognitive needs: No Hearing needs: No Vision needs: No Female Reproductive History Menstrual Age of Menarche: 14 Questionnaire Thrive Questionnaire Date Thrive assessed: 09/30/24 I am a: Patient What is your living situation today?: I choose not to answer this question Within the past 12 months, did the food you bought not last and you didn't have the money to get more?: I choose not to answer this question Within the past 12 months, did you worry whether your food would run out before you got money to buy more?: I choose not to answer this question Do you have trouble paying for medicines?: I choose not to answer this question Do you have trouble getting transportation to medical appointments?: I choose not to answer this question Do you have trouble paying your heating and electricity bill?: I choose not to answer this question Do you have trouble taking care of your child, family member or friend?: I choose not to answer this question Do you have trouble with day-to-day activities such as bathing, preparing meals, shopping, managing finances, etc.?: I choose not to answer this question Are you currently unemployed and looking for a job?: I choose not to answer this question Are you interested in more education?: I choose not to answer this question Please select the resources that you would like help with: None Currently or been in a relationship where the following occur: I choose not to answer THRIVE Score: 0 MANUELA-7 AMB Questionnaire MANUELA-7 Date MANUELA - 7 assessed: 09/30/24 Source: Developed by Drs. Agustin Lucas, Katie Brennan, Christopher Cee and colleagues, with an educational jean pierre from [employer]. Review of Systems Narrative Review of Systems - General: No fever no chills - Neurological: No headaches no dizziness - Ear nose throat: No sore throat no hearing difficulty no ear pain - Cardiovascular: No syncope, no chest pain, no palpitations - Gastrointestinal: No nausea vomiting or diarrhea - Endocrine: No polyuria polydipsia no heat intolerance - Genitourinary: No dysuria , no blood in urine Physical exam (Primary Care) Vital Signs: Last Vital Signs Pulse 73 06/30/25 13:45 BP 130/80 06/30/25 13:45 Pulse Ox 98 06/30/25 13:45 BMI result Body Mass Index 44.6 Tobacco/Smoking Status: Tobacco use Status Tobacco use date assessed 01/17/25 06/30/25 13:50 Patient Tobacco Use Status Never used Tobacco 06/30/25 13:50 Tobacco use type 10/27/24 11:51 e-Cigarette/Vaping Use Never Used 06/30/25 13:50 Thrive Assessment: Date of Thrive Assessment Date Thrive assessed 09/30/24 06/30/25 13:50 Currently or been in a relationship where the following occur: I choose not to answer Narrative Physical Exam General: No acute distress HEENT: No acute findings Neck: Supple Respiratory system: Lungs are clear Cardiovascular: S1-S2 regular in rate and rhythm Gastrointestinal: soft to palpation, no pain Extremities: No new findings FINANCIAL COACH: Alert awake oriented x3 motor intact Skin: Itchy infection Coding Level of Care Code Est Pt Level 5 (83391) Diagnoses Menopausal bleeding N92.4 Hypertension, essential I10 Morbid obesity due to excess calories E66.01 Recurrent major depressive disorder, in partial remission F33.41 Active/Remission status: in partial remission Difficulty sleeping G47.9 Gastroesophageal reflux disease without esophagitis K21.9 Esophagitis presence: without esophagitis Lipid disorder E78.9 Anxiety, generalized F41.1 Sleep apnea, unspecified type G47.30 Sleep apnea type: unspecified type Assessment & Plan Assessment & Plan (1) Menopausal bleeding: Code(s): N92.4 - Excessive bleeding in the premenopausal period Category: Medical (2) Hypertension, essential: Code(s): I10 - Essential (primary) hypertension Category: Medical (3) Morbid obesity due to excess calories: Code(s): E66.01 - Morbid (severe) obesity due to excess calories Category: Medical (4) Major depression, recurrent: Code(s): F33.9 - Major depressive disorder, recurrent, unspecified Category: Medical Qualifiers: Active/Remission status: in partial remission Qualified Code(s): F33.41 - Major depressive disorder, recurrent, in partial remission (5) Difficulty sleeping: Code(s): G47.9 - Sleep disorder, unspecified Category: Medical (6) GERD (gastroesophageal reflux disease): Code(s): K21.9 - Gastro-esophageal reflux disease without esophagitis Category: Medical Qualifiers: Esophagitis presence: without esophagitis Qualified Code(s): K21.9 - Gastro-esophageal reflux disease without esophagitis (7) Lipid disorder: Code(s): E78.9 - Disorder of lipoprotein metabolism, unspecified Category: Medical (8) Anxiety, generalized: Code(s): F41.1 - Generalized anxiety disorder Category: Medical (9) Sleep apnea: Code(s): G47.30 - Sleep apnea, unspecified Category: Medical Qualifiers: Sleep apnea type: unspecified type Qualified Code(s): G47.30 - Sleep apnea, unspecified Plan Problem List - Postmenopausal bleeding - Hypertension - Anxiety - Insomnia - Gastroesophageal reflux disease - Asthma - Constipation - Vitamin D deficiency - Elevated liver enzymes - Sleep apnea - Vaginitis - Preventative care: Mammogram - Preventative care: Flu vaccine declined - Health maintenance: Weight management Plan - A stat pelvic and vaginal ultrasound stat will be ordered to investigate the cause of the postmenopausal bleeding. - A referral will be made for the patient to see an MILLING MACHINE OPERATOR GEAR following the ultrasound. - A prescription will be sent for the patient's vaginal infection. - Current medications will be refilled. - Labs, including a repeat check of liver enzymes, will be done before the next appointment. - The patient declined a flu vaccine at this time. - Discussion of a weight management referral is deferred until the current gynecological issue is resolved. - The patient will schedule a follow-up appointment in three months. Orders: Orders US pelvic and transvaginal Today N92.4 - Excessive bleeding in the premenopausal period Referrals MILLING MACHINE OPERATOR GEAR Referral N92.4 - Excessive bleeding in the premenopausal period Medications: New fluconazole may repeat second dose 72 hrs after first dose if symptoms persist 150 mg PO Q3D 2 tabs 0RF 2 doses Refilled zolpidem 10 mg PO BEDTIME 30 tabs 2RF 30 days G47.9 - Sleep disorder, unspecified
--- OUTSIDE RECORDS SUMMARY | 2025-06-30 14:11 | XMS_ITS | Clinical Summary ---
Author Organization 175 [facility] Address [address] [place] [address] Phone Care Team Providers Care Dust Mop Maker Name Role Phone Unavailable Primary Care Provider [...] Depression Screening 08/10/2024 COVID-19 Vaccine (1 - 2024-2 6 season) 2025 Influenza Vaccine (#1) 2025 RSV [...] patient's age to complete this topic Insurance [employer] Member Subscriber Plan / Payer (Ef fective 2024-Present) Name:Dania Bah Relation to Subscriber:Self Name:Dania Bah Payer ID:[id number] Group ID:Not on file Type:Not on file Address: [facility] [address] [phone]
== END 2025-06-30 14:24 | disposition home or self-care (01) ==
LOC: HO.HMCC 13:42
PROVIDERS: PCP Internal Medicine; Visit Provider Internal Medicine
DX: N92.4 Excessive bleeding in the premenopausal period (principal); I10 Essential (primary) hypertension; F33.41 Major depressive disorder, recurrent, in partial remission; G47.9 Sleep disorder, unspecified; K21.9 Gastro-esophageal reflux disease without esophagitis; E78.9 Disorder of lipoprotein metabolism, unspecified; F41.1 Generalized anxiety disorder; G47.30 Sleep apnea, unspecified

== ENCOUNTER 2025-06-30 15:44 | Outpatient (REF) | payer OTHER, SELFPAY ==
--- NOTE | ~2025-06-30 | MM_ITS ---
EXAMINATION: MM SCREENING DIGITAL BREAST TOMOSYNTHESIS, BILATERAL CLINICAL INFORMATION: Screening. Asymptomatic. COMPARISON: Comparison made to multiple prior, most recent May 31, 2024, and most remote April 27, 2013. TECHNIQUE: Digital breast tomosynthesis is performed in mediolateral oblique and craniocaudal views along with computer-aided detection (CAD). Synthesized 2D images are generated from the tomosynthesis. FINDINGS: BREAST COMPOSITION: There are scattered areas of fibroglandular density. RIGHT BREAST: No significant masses, suspicious calcifications or other abnormalities are seen. LEFT BREAST: There is an approximately 0.6-0.7 cm focal asymmetry in the lower outer quadrant posterior depth at approximately 13-14 cm from the nipple (MLO 30/105, CC 26/88). No suspicious calcifications or other abnormalities are seen. MM/MM tomosynthesis screening BI IMPRESSION: RIGHT BREAST: Negative, no mammographic evidence of malignancy. Normal interval follow-up is recommended in 12 months. LEFT BREAST: Focal asymmetry in the lower outer quadrant posterior depth. ASSESSMENT: BI-RADS: Category 0: Incomplete - Need additional Imaging Evaluation RECOMMENDATION: 1. Additional views of the left breast. 2. Targeted ultrasound if warranted after review of the additional views. 3. Radiology department staff will contact the patient for additional imaging. FOLLOW-UP: Additional Imaging required This examination should not preclude the clinical evaluation of a suspicious palpable abnormality. This patient's information was entered into a reminder system with a target due date for their next mammogram. Electronically signed by: Bennett Olmos MD 07/03/2025 06:55 PM [facility] [place]
== END 2025-06-30 15:45 | disposition home or self-care (01) ==
LOC: HO.MAMMO 15:44
PROVIDERS: Visit Provider Internal Medicine
DX: N92.4 Excessive bleeding in the premenopausal period (principal); I10 Essential (primary) hypertension; F41.9 Anxiety disorder, unspecified; G47.00 Insomnia, unspecified; K21.9 Gastro-esophageal reflux disease without esophagitis; J45.909 Unspecified asthma, uncomplicated; N76.0 Acute vaginitis; E55.9 Vitamin D deficiency, unspecified; R74.8 Abnormal levels of other serum enzymes; E66.01 Morbid (severe) obesity due to excess calories; F33.41 Major depressive disorder, recurrent, in partial remission; D47.9 Neoplasm of uncertain behavior of lymphoid, hematopoietic and related tissue, unspecified; E78.9 Disorder of lipoprotein metabolism, unspecified; F41.1 Generalized anxiety disorder; G47.30 Sleep apnea, unspecified; Z12.31 Encounter for screening mammogram for malignant neoplasm of breast
CPT/HCPCS: 77063; 77067; 99212

== ENCOUNTER → 2025-06-30 16:15 | Outpatient (BNV) | payer OTHER, SELFPAY | PROVIDERS: Visit Provider Radiology Body Imaging | DX: Z12.31 Encounter for screening mammogram for malignant neoplasm of breast (principal) | CPT/HCPCS: 77063; 77067 ==

== ENCOUNTER 2025-07-04 07:39 | Outpatient (REF) | payer OTHER, SELFPAY ==
--- NOTE | ~2025-07-04 | US_ITS ---
CLINICAL HISTORY: N92.4 - Excessive bleeding in the premenopausal period Ultrasound of the female pelvis Comparison: None provided Technique: Grayscale ultrasound with assistance of color Doppler. Transabdominal scanning performed for overall anatomy. Transvaginal scanning performed for better anatomic delineation. Findings: Anteverted uterus measures 9.1 x 4.2 x 5.1 cm. Mildly heterogeneous myometrium, intramural fibroid in the right fundus 3.8 x 3.7 x 3.5 cm. Homogeneously hyperechoic endometrium, 7 mm in thickness, no focal lesion or abnormal vascular flow. Small simple and complex nabothian cyst containing hypoechoic cystic contents without abnormal vascular flow. Ovaries are not seen, no adnexal mass. No free fluid. Impression: 1. 7 mm endometrium without focal lesion or abnormal vascular flow, the provided history is excessive bleeding in the premenopausal period, but patient is 60 years old/postmenopausal age and has been postmenopausal for 3 years per ultrasound worksheet, most likely there was a typo in the provided history, patient is actually having postmenopausal bleeding, recommend endometrial sampling. 2. Uterine fibroid. 3. Nonvisualization of ovaries. This document has been electronically signed by: Christina Lopez MD on 07/04/2025 16:11:27
--- OUTSIDE RECORDS SUMMARY | 2025-07-04 07:42 | XMS_ITS | Clinical Summary ---
Author Organization 175 [facility] Address [address] [place] [address] Phone Care Team Providers Care Director Biostatistics Name Role Phone Unavailable Primary Care Provider [...] patient's age to complete this topic Insurance [employer] Member Subscriber Plan / Payer (Ef fective 2024-Present) Name:Dania Bah Relation to Subscriber:Self Name:Dania Bah Payer ID:[id number] Group ID:Not on file Type:Not on file Address: [facility] [address] [id number]
== END 2025-07-04 07:40 | disposition home or self-care (01) ==
LOC: HO.US 07:39
PROVIDERS: PCP Internal Medicine; Visit Provider Internal Medicine
DX: N92.4 Excessive bleeding in the premenopausal period (principal)
CPT/HCPCS: 76830; 76856

== ENCOUNTER → 2025-07-04 07:42 | Outpatient (BNV) | payer OTHER, SELFPAY | PROVIDERS: PCP Internal Medicine; Visit Provider Radiology Diagnostic Radiology | DX: D25.9 Leiomyoma of uterus, unspecified (principal); N92.4 Excessive bleeding in the premenopausal period | CPT/HCPCS: 76830; 76856 ==

== ENCOUNTER 2025-07-10 13:07 | Outpatient (REF) | payer OTHER, SELFPAY ==
[2025-07-11 15:38] LABS: CT PCR NOT DETECTED (Not Detect.); NG PCR NOT DETECTED (Not Detect.)
== END 2025-07-10 13:08 | disposition home or self-care (01) ==
LOC: HO.LNP 13:07
PROVIDERS: PCP Internal Medicine; Visit Provider Advanced Practice Midwife
DX: R10.20 Pelvic and perineal pain unspecified side (principal); N95.0 Postmenopausal bleeding; D21.9 Benign neoplasm of connective and other soft tissue, unspecified; Z75.8 Other problems related to medical facilities and other health care; R30.0 Dysuria
CPT/HCPCS: 87086; 87491; 87591

== ENCOUNTER 2025-07-10 13:07 | Outpatient (AMB) | payer OTHER, SELFPAY ==
--- NOTE | 2025-07-10 13:09 | A.OFFVIS_ITS ---
Intake Visit Reasons: Excessive Bleeding in the Premenopausal Period Arrow Point Attacher Required: Yes Arrow Point Attacher Services: Arrow Point Attacher Present Arrow Point Attacher Name: id # [id number] Information Interpreted: non-clinical & clinical Pharmaceutical Service Representative: Pharmaceutical Service Representative Present (Radha Toribio MA) Accompanied by: Self / Same As Patient Allergies No Known Allergies Allergy (Verified 07/10/25 13:14) Is last menstrual period known: Yes Post menopausal: Yes (x 3 yrs) Patient : No HPI Comments Details: Pt presents today with concerns of PMB. reports 3 yrs menopause and most recently had vaginal bleeding Started on 06/23 Lasting 3-4 days, Precipitating factors: Strenuous activity: denies [place] none, she does have a partner ( off/on) Trauma: denies Nature of the bleeding: Continuous/Intermittent Color started brown and progressed to red Quantity changing sanitary pad twice a day Associated factors: Pain : on the left while resting, and states when she walk she has no pain Fever denies Bladder : unsure if she has UTI, has some urine frequency/ dysuria Bowel denies constipation of diarrhea Medication hx : Hormones : none Soy in diet : n/a Family Hx : Breast CA denies Ovarian CA denies Uterine CA denies Colon CA Yes, on fathers side and also her sister PAP Hx: 2020- Neg Tobacco Use denies PFSH Medical History Language barrier DJD (degenerative joint disease) Sleep apnea Morbid obesity Asthma Elevated cholesterol GERD (gastroesophageal reflux disease) Vertigo Anxiety Depression HTN (hypertension) COVID-19 Surgical History Hx of cystoscopy H/O colonoscopy Hx of tubal ligation H/O shoulder surgery Hx of cholecystectomy Family History Mother Diabetes Sister Diabetes HTN (hypertension) Colon cancer Paternal Uncle Colon cancer Social History Household Members: Significant Other Housing: House Do you presently have visiting nurse 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) Alcohol intake: current Alcohol intake frequency: holidays/special occasions only Patient Tobacco Use Status: Never used Tobacco e-Cigarette/Vaping Use: Never Used Second Hand Smoke Exposure: No Substance Use Type: Marijuana service: No Current occupational status: disabled Cognitive needs: No Hearing needs: No Vision needs: No Female Reproductive History Menstrual Age of Menarche: 14 Duration of menses: 3-5 days control method: none Date of last pap smear: 05/01/21 (negative pap smear, negative hpv ) History of abnormal pap smear: No Review of Systems Const Reports no additional complaints Eyes Reports no additional complaints ENT Reports no additional complaints Card Reports no additional complaints Resp Reports no additional complaints GI Reports no additional complaints Reports as per HPI Physical Exam External Female Exam: normal external appearance and normal appearance of the urethra Speculum Exam - Vagina: normal appearance of the vagina and normal vaginal discharge Speculum Exam - Cervix: normal appearance of the cervix and nontender Bimanual exam- vagina & uterus: No Cervical tenderness present Bimanual Exam- Adnexa, other: tender on the left Results Reviewed Results Reviewed: 02/24/25 TSH 2.06 H/H 13.2 / 39.7 07/04/2025 pelvic [place] [address] Ultrasound Report Signed with Ruchienda Patient: Dania Rizzo MR#: [id number] : 1965 Acct:[id number] Age/Sex: 60 / F ADM Date: 07/04/25 Loc: HO. Attending Dr: Kinjal Tavares MD Ordering Physician: Kinjal Tavares MD Date of Service: 07/04/25 Procedure(s): US pelvic and transvaginal Accession Number(s): [id number] cc: Kinjal Tavares MD~ Reason for Exam: N92.4 - Excessive bleeding in the premenopausal period ADDENDUMThis document has been electronically signed by: Christina Lopez MD on 07/04/2025 16:11:27 ADDENDUM: Receipt of this report by the clinical staff was confirmed with Sun Rogers RN on Jul 04, 2025 16:43:00 EST. This document has been electronically signed by: Xochitl Fernandez on 07/04/2025 16:44:15 Addendum Dictated By: Christina Lopez MD Addendum Signed By: <Electronically signed by Christina Lopez MD in OV> 07/04/25 1645 Addendum Cosigned By: DD/ TD/TT: 07/04/25 CLINICAL HISTORY: N92.4 - Excessive bleeding in the premenopausal period Ultrasound of the female pelvis Comparison: None provided Technique: Grayscale ultrasound with assistance of color Doppler. Transabdominal scanning performed for overall anatomy. Transvaginal scanning performed for better anatomic delineation. Findings: Anteverted uterus measures 9.1 x 4.2 x 5.1 cm. Mildly heterogeneous myometrium, intramural fibroid in the right fundus 3.8 x 3.7 x 3.5 cm. Homogeneously hyperechoic endometrium, 7 mm in thickness, no focal lesion or abnormal vascular flow. Small simple and complex nabothian cyst containing hypoechoic cystic contents without abnormal vascular flow. Ovaries are not seen, no adnexal mass. No free fluid. Impression: 1. 7 mm endometrium without focal lesion or abnormal vascular flow, the provided history is excessive bleeding in the premenopausal period, but patient is 60 years old/postmenopausal age and has been postmenopausal for 3 years per ultrasound worksheet, most likely there was a typo in the provided history, patient is actually having postmenopausal bleeding, recommend endometrial sampling. 2. Uterine fibroid. 3. Nonvisualization of ovaries. This document has been electronically signed by: Christina Lopez MD on 07/04/2025 16:11:27 Assessment & Plan Assessment & Plan (1) Postmenopausal bleeding: Code(s): N95.0 - Postmenopausal bleeding (2) Pain in pelvis: Code(s): R10.20 - Pelvic and perineal pain unspecified side (3) Dysuria: Code(s): R30.0 - Dysuria Plan: Urine culture (4) Fibroids: Comment: slightly smaller than previous 05/30. Code(s): D21.9 - Benign neoplasm of connective and other soft tissue, unspecified Category: Medical (5) Language barrier: Code(s): Z60.3 - Acculturation difficulty; Z75.8 - Other problems related to medical facilities and other health care Category: Social Hx Plan Pt educated in potential causes of PMB including infection , trauma, polyps, malignancy. This has occurred once Pt will be rafy for EMB. She is requesting prior to 07/24 as she will be leaving for [place] x 3 weeks if unable to rafy by 07/24 , then plan for mid Aug 2025 Instructed to go to the ER for heavier prolonged bleeding if indicated Orders: Orders CT NG by PCR Vag/Cerv Today N95.0 - Postmenopausal bleeding, R10.20 - Pelvic and perineal pain unspecified side Urine Culture Today R10.20 - Pelvic and perineal pain unspecified side, R30.0 - Dysuria Coding Level of Care Code Est Pt Level 4 (60042) Diagnoses Postmenopausal bleeding N95.0 Pain in pelvis R10.20 Dysuria R30.0 Fibroids D21.9 Language barrier Z60.3; Z75.8
--- OUTSIDE RECORDS SUMMARY | 2025-07-10 16:46 | XMS_ITS | Clinical Summary ---
Author Organization [address] [facility] Address [address] [place] [address] Phone Care Team Providers Care Medical Coding Instructor Name Role Phone Unavailable Primary Care Provider [...] patient's age to complete this topic Insurance [employer] Member Subscriber Plan / Payer (Ef fective 2024-Present) Name:Dania Bah Relation to Subscriber:Self Name:Dania Bah Payer ID:[id number] Group ID:Not on file Type:Not on file Address: [facility] [address] [place] [id number]
== END 2025-07-11 16:12 | disposition home or self-care (01) ==
LOC: HO.HWSM 13:07
PROVIDERS: PCP Internal Medicine; Visit Provider Advanced Practice Midwife
DX: N95.0 Postmenopausal bleeding (principal); R10.20 Pelvic and perineal pain unspecified side; R30.0 Dysuria; D21.9 Benign neoplasm of connective and other soft tissue, unspecified; Z60.3 Acculturation difficulty; Z75.8 Other problems related to medical facilities and other health care
CPT/HCPCS: 99214

== ENCOUNTER 2025-07-13 07:46 | Outpatient (REF) | payer OTHER, SELFPAY | END 2025-07-13 07:47 | disposition home or self-care (01) | LOC: HO.LNP 07:46 | PROVIDERS: PCP Internal Medicine; Visit Provider Obstetrics & Gynecology | DX: N92.4 Excessive bleeding in the premenopausal period (principal); D25.9 Leiomyoma of uterus, unspecified | CPT/HCPCS: 58100; 88305; 99212 ==

== ENCOUNTER 2025-07-13 07:46 | Outpatient (AMB) | payer OTHER, SELFPAY ==
--- OUTSIDE RECORDS SUMMARY | 2025-07-13 07:50 | XMS_ITS | Clinical Summary ---
Author Organization [address] [facility] Address [address] [place] [address] Phone Care Team Providers Care Scheduling Agent Name Role Phone Unavailable Primary Care Provider [...] patient's age to complete this topic Insurance [employer] Member Subscriber Plan / Payer (Ef fective 2024-Present) Name:Dania Bah Relation to Subscriber:Self Name:Dania Bah Payer ID:[id number] Group ID:Not on file Type:Not on file Address: [facility] [address] [place] [id number]
[2025-07-13 07:58] VITALS: BP 128/86; BMI 44.6
--- NOTE | 2025-07-13 07:58 | MHC.OFFVIS ---
Vital Signs 07/13/25 07:58 Height 5 ft 2 in Weight 244 lb BMI 44.6 BP 128/86 Intake Visit Reasons: EMB Manufacturing Team Member Required: Yes Manufacturing Team Member Language: Soda Column Operator Services: Manufacturing Team Member Present (in person) Manufacturing Team Member Name: Breanne BLACKBURN Information Interpreted: non-clinical & clinical Instrumentation And Controls Designer: Instrumentation And Controls Designer Present (Breanne BLACKBURN) Accompanied by: Self / Same As Patient Allergies No Known Allergies Allergy (Verified 07/13/25 08:05) Post menopausal: Yes HPI Comments Details: Presenting referred by Adelaide Darden CNM regarding postmenopausal bleeding Last Co testing in 04/30 was negative 07/10/2025 GC/CT was negative 07/04 Pelvic ultrasound showed the following: Anteverted uterus measures 9.1 x 4.2 x 5.1 cm. Mildly heterogeneous myometrium, intramural fibroid in the right fundus 3.8 x 3.7 x 3.5 cm. Homogeneously hyperechoic endometrium, 7 mm in thickness, no focal lesion or abnormal vascular flow. Small simple and complex nabothian cyst containing hypoechoic cystic contents without abnormal vascular flow. Ovaries are not seen, no adnexal mass. No free fluid. Impression: 1. 7 mm endometrium without focal lesion or abnormal vascular flow, the provided history is excessive bleeding in the premenopausal period, but patient is 60 years old/postmenopausal age and has been postmenopausal for 3 years per ultrasound worksheet, most likely there was a typo in the provided history, patient is actually having postmenopausal bleeding, recommend endometrial sampling. 2. Uterine fibroid. 3. Nonvisualization of ovaries. [facility] Medical History (Updated 07/13/25 @ 08:11 by Delfin Castillo MD) Language barrier DJD (degenerative joint disease) Sleep apnea Morbid obesity Asthma Elevated cholesterol GERD (gastroesophageal reflux disease) Vertigo Anxiety Depression HTN (hypertension) COVID-19 Surgical History Hx of cystoscopy H/O colonoscopy Hx of tubal ligation H/O shoulder surgery Hx of cholecystectomy Family History Mother Diabetes Sister Diabetes HTN (hypertension) Colon cancer Paternal Uncle Colon cancer Social History Household Members: Significant Other Housing: House Do you presently have visiting nurse 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) Alcohol intake: current Alcohol intake frequency: holidays/special occasions only Patient Tobacco Use Status: Never used Tobacco e-Cigarette/Vaping Use: Never Used Second Hand Smoke Exposure: No Substance Use Type: Marijuana service: No Current occupational status: disabled Cognitive needs: No Hearing needs: No Vision needs: No Female Reproductive History Menstrual Age of Menarche: 14 Physical Exam Vital Signs: Last Vital Signs BP 128/86 07/13/25 07:58 BMI result Body Mass Index 44.6 Office Procedures Endometrial Biopsy Details: The patient was counseled regarding the indication and benefits of endometrial sampling to rule out endometrial pathology including not limited to endometrial hyperplasia or endometrial cancer and others; The alternatives (Either do nothing vs. hysteroscopy D&C) & the risks were discussed with the patient including but not limited: pain, uterine perforation, bleeding, infection, possible injury to bladder, bowel, ureter, possible need for blood transfusion with all its possible risks. The patient verbalized understanding all questions answered and signed consent. The patient was placed into the dorsal lithotomy position; a speculum was inserted in the vagina. Using aseptic technique for the procedure, the cervix was cleansed with Betadine. The anterior lip of the cervix was grasped with a single tooth tenaculum. The uterus was sounded to 7 cm with a 4 mm Pipelle was used. Tissues samples were obtained and placed in formalin, in a patient labeled container and sent to the pathology department. At the end of the procedure, there was minimal bleeding noted The patient tolerated the procedure well and was discharged in good condition with the following instructions: Nothing in the vagina until the bleeding stops. No sex until the bleeding stops, to call if any of the following occurs: fever (>100.4), flu-like symptoms, abdominal pain, heavy bleeding, four smelling vaginal discharge. The patient was instructed to schedule a Follow up appointment in 2 weeks to discuss pathology results of the biopsy and treatment options. This note was generated with a voice recognition program. Some errors may have been overlooked during the review of this note. Sometimes these errors may affect the content or meaning of a given sentence. [id number]-[id number] Biopsy Assessment & Plan Assessment & Plan (1) Menopausal bleeding: Comment: Thick endometrium Code(s): N92.4 - Excessive bleeding in the premenopausal period Category: Medical Plan: Co testing done. Discussed with the patient the pelvic ultrasound findings, the endometrial stripe thickenss measured by ultrasound was more than 4mm. The negative predictive value, positive predictive value, Sensitivity, specificity of using ultrasound measurement of endometrial stripe to detecting endometrial pathology including hyperplasia , polyp or cancer were discussed with the patient. Recommended to the patient that the next step is an endometrial sampling via hysteroscopy D&C possible polypectomy versus endometrial biopsy to r/o endometrial pathology including hyperplasia or cancer. All the pros and cons risks and benefits of each approach were discussed with the patient, endometrial biopsy being less invasive, office procedure with less sensitivity and inability diagnose a polyp and removal versus hysteroscopy done under anesthesia more invasive more sensitive to endometrial cancer and possibility of diagnosing and endometrial polyp with the possibility of polypectomy. All questions were answered pt verbalized understanding and decided to proceed with endometrial biopsy. EMB done see procedure note (2) Uterine myoma: Code(s): D25.9 - Leiomyoma of uterus, unspecified Category: Medical Plan: Discussed with the patient the findings on pelvic ultrasound & the risk of myosarcoma; in addition reviewed with the patient that malignancy and pre malignancy cannot be ruled out without hysterectomy for pathological evaluation ; furthermore, explained to the patient the limitation of pelvic ultrasound and endometrial biopsy in the setting. Discussed with the patient the options of treatment including expectant management versus hysterectomy; the pros and cons, risks benefits of each approach were discussed with the patient including the fact that in cases of myosarcoma, surgical treatment can lead to early diagnosis and positively affects the prognosis; after further discussion, the patient decided to proceed with expectant management. Will repeat pelvic ultrasound periodically. Instructions given to patient to call in case any of the following occurs: pressure symptoms, abnormal uterine bleeding, pelvic pain; and to schedule a six-months pelvic ultrasound (order placed) and a follow-up appointment . All questions answered, the patient verbalized understanding and agreed with the plan . Orders: Orders AMB Endometrial Biopsy Today N92.4 - Excessive bleeding in the premenopausal period US pelvic and transvaginal 6 Months D25.9 - Leiomyoma of uterus, unspecified Coding Level of Care Code Est Pt Level 3 (97039) Procedure Only Diagnoses Menopausal bleeding N92.4 Uterine myoma D25.9 CPT Codes Endometrial Biopsy - CPT: 82054-[id number] Biopsy ([id number])
== END 2025-07-13 09:56 | disposition home or self-care (01) ==
LOC: HO.HWS 07:47
PROVIDERS: PCP Internal Medicine; Visit Provider Obstetrics & Gynecology
DX: N92.4 Excessive bleeding in the premenopausal period (principal); D25.9 Leiomyoma of uterus, unspecified
CPT/HCPCS: 58100; 99213

== ENCOUNTER 2025-07-20 10:10 | Outpatient (AMB) | payer OTHER, SELFPAY ==
--- NOTE | 2025-07-20 10:33 | MHC.OFFVIS ---
Intake Visit Reasons: Post EMB Allergies No Known Allergies Allergy (Verified 07/13/25 08:05) HPI Comments Details: The patient is presenting after endometrial biopsy. The patient has no complaints, no vaginal bleeding, no feverishness chills or abdominal pain. The endometrial biopsy pathology report showed the following: Endometrium, biopsy: - Superficial fragments of inactive endometrium. - Few fragments of endocervical and squamous epithelium within normal limits. 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) Alcohol intake: current Alcohol intake frequency: holidays/special occasions only Patient Tobacco Use Status: Never used Tobacco e-Cigarette/Vaping Use: Never Used Second Hand Smoke Exposure: No Substance Use Type: Marijuana service: No Current occupational status: disabled Cognitive needs: No Hearing needs: No Vision needs: No Female Reproductive History Menstrual Age of Menarche: 14 Review of Systems Const All systems reviewed & are unremarkable except as noted in HPI and below Reports as per HPI and Reports no additional complaints GI Reports no additional complaints Reports no additional complaints Assessment & Plan Assessment & Plan (1) Menopausal bleeding: Comment: Thick endometrium Code(s): N92.4 - Excessive bleeding in the premenopausal period Category: Medical Plan: Discussed with the patient the results of the endometrial biopsy. Discussed with the patient the sensitivity, specificity, positive and negative predictive value, of endometrial biopsy in detecting endometrial pathology including but not limited to endometrial hyperplasia, cancer and other pathology; instructed the patient to call in case vaginal bleeding recurs, the next step will be to proceed with a diagnostic hysteroscopy/D&C for further endometrial sampling evaluation to rule out endometrial pathology. All questions answered and the patient verbalized understanding and agreed with the plan. Coding Level of Care Code Est Pt Level 3 (95995) Diagnoses Menopausal bleeding N92.4
== END 2025-07-20 10:50 | disposition home or self-care (01) ==
LOC: HO.HWS 10:11
PROVIDERS: PCP Internal Medicine; Visit Provider Obstetrics & Gynecology
DX: N92.4 Excessive bleeding in the premenopausal period (principal)
CPT/HCPCS: 99213

== ENCOUNTER → 2025-07-20 10:10 | Outpatient (BNVA) | payer OTHER, SELFPAY | PROVIDERS: PCP Internal Medicine; Visit Provider Obstetrics & Gynecology | DX: N92.4 Excessive bleeding in the premenopausal period (principal) | CPT/HCPCS: 99212 ==